=== PATIENT | male | born 1970 | race Caucasian/White ===

== ENCOUNTER 2018-08-08 13:28 | Inpatient (IN) | payer MEDICAID, OTHER ==
[2018-08-08] MEDS ORDERED: THIAMINE HCL 200 MG/2 ML VIAL (J3411) IM ONE (13:45)
[2018-08-08] MEDS ORDERED: NS 1,000 ML IV ONE ×3 (13:45→17:30)
[2018-08-08] MEDS ORDERED: FLUO40CA PO (13:54)
[2018-08-08] MEDS ORDERED: TRAZ-160 PO (13:54)
--- NOTE | 2018-08-08 13:59 | REP ---
Chest one-view HISTORY: Drug overdose Comparison: None The lungs are clear. The heart is normal in size. The pulmonary vasculature is normal in appearance. Impression: No acute disease. Electronically Signed by Haile Cerrato MD 08/08/2018 01:52 P
[2018-08-08 14:15] LABS: VENOUS BASE EXCESS -1.6 (-2.0-2.0); VENOUS HCO3 22.1 MEQ/L (23.0-27.0); VENOUS O2 SATURATION 99.1 % (60.0-80.0); VENOUS PARTIAL PRESSURE CO2 34.5 mmHg (38.0-50.0); VENOUS PARTIAL PRESSURE O2 152.6 mmHg (30.0-50.0); VENOUS PH 7.424 UNITS (7.330-7.430); VENOUS STANDARD HCO3 23.2 MEQ/L; VENOUS TOTAL CO2 23.1 MEQ/L (24.0-28.0)
[2018-08-08 14:26] LABS: BASO % 0.1 % (0.0-1.0); EOS % 0.1 % (0.0-3.0); HEMATOCRIT 39.1 % (42.0-52.0); HEMOGLOBIN 14.2 g/dl (13.5-17.5); LYMPH # 0.6 10^3/uL (1.5-4.5); LYMPH % 3.4 % (24.0-44.0); MEAN CORPUSCULAR HEMOGLOBIN 31.6 pg (27.0-33.0); MEAN CORPUSCULAR HGB CONC 36.3 g/dl (32.0-36.5); MEAN CORPUSCULAR VOLUME 86.9 fl (80.0-96.0); MONO # 0.6 10^3/uL (0.0-0.8); MONO % 3.4 % (0.0-5.0); NEUTROPHILS % 92.6 % (36.0-66.0); PLATELET COUNT, AUTOMATED 166 10^3/uL (150-450); WHITE BLOOD COUNT 17.2 10^3/uL (4.0-10.0)
--- NOTE | 2018-08-08 14:41 | REP ---
CT Head without contrast HISTORY: Drug overdose COMPARISON: None There is no intraparenchymal hemorrhage, acute infarct, mass or midline shift. The ventricular system and cortical sulci as well as subarachnoid space in the posterior fossa are dilated consistent with mild volume loss. There is no extra cerebral collection. There is no fracture. The visualized sinuses are clear. IMPRESSION: Mild volume loss. Electronically Signed by Haile Cerrato MD 08/08/2018 02:33 P
[2018-08-08 15:13] LABS: ACETAMINOPHEN LEVEL < 2.0 UG/ML (10.0-30.0); ALBUMIN 3.7 GM/DL (3.2-5.2); ALT/SGPT 141 U/L (12-78); BILIRUBIN,DIRECT 0.1 MG/DL (0.0-0.2); BILIRUBIN,TOTAL 0.9 MG/DL (0.2-1.0); BLOOD UREA NITROGEN 18 MG/DL (7-18); CALCIUM LEVEL 7.8 MG/DL (8.5-10.1); CARBON DIOXIDE LEVEL 21 MEQ/L (21-32); CHLORIDE LEVEL 89 MEQ/L (98-107); CREATININE FOR GFR 0.57 MG/DL (0.70-1.30); GLOMERULAR FILTRATION RATE > 60.0 (>60); GLUCOSE, FASTING 119 MG/DL (70-100); POTASSIUM SERUM 5.8 MEQ/L (3.5-5.1); SALICYLATE LEVEL < 1.7 MG/DL (5.0-30.0); SODIUM LEVEL 127 MEQ/L (136-145); THYROID STIMULATING HORMONE 0.313 uIU/ML (0.358-3.740); TOTAL PROTEIN 6.6 GM/DL (6.4-8.2)
[2018-08-08 15:41] LABS: CPK CREATINE PHOSPHOKINASE 3310 U/L (39-308)
[2018-08-08] MEDS: NS 1,000 ML IV SCH (20:29)
[2018-08-08 20:39] LABS: MYOGLOBIN 638 NG/ML (16-116)
[2018-08-08] MEDS: LORazepam 2 MG TAB PO PRN ×3 (20:45→23:35)
--- NOTE | 2018-08-08 20:58 | HPEPDOC ---
[facility] Medical History & Physical Date of Admission Aug 08, 2018 Other Provider Admitting/dictating: Lilian Hopkins M.D. Attending Physician: UDAY CAPELLAN MD History and Physical CHIEF COMPLAINT: Altered mental status HISTORY OF PRESENT ILLNESS: Patient is a 47-year-old man. No known medical h istory other than being brought in by EMS on account of being found at home in bed, in feces and vomit with multiple bottles of vodka. EMS was activated by his estranged was concerned as she hadn't heard from him for about 3 days. It is reported she says they talked every day. Patient was found with altered sensorium and brought to the emergency room. He was evaluated with elevated serum alcohol as well as elevated creatinine kinase. At the time. Patient not reliable historian. However, at interview, I did notice some improvement in his mental status. Patient denied nausea, vomiting. Other than hicupping for the past 2-3 days. He also refers having had very little to eat for the past 2 days. No fever, no chills. No palpitations, no cough, no shortness of breath. He says since onset of hiccuping, he occasionally feels epigastric pains. No change in his bowel or urinary habits. PAST MEDICAL HISTORY: Per HPI PAST SURGICAL HISTORY: 1. Right wrist surgery. SOCIAL HISTORY: from his . Takes a lot of what Several bottles at the time. FAMILY HISTORY: No significant ischemic heart disease in the family ALLERGIES: Please see below. REVIEW OF SYSTEMS: 12 point review of system negative other than that described in the body of HPI. HOME MEDICATIONS: Please see below. PHYSICAL EXAMINATION: VITAL SIGNS: Temperature 98, pulse 90, respiratory rate 17, blood pressure 120/56, pulse oximetry 95% on room air. GENERAL APPEARANCE: Middle aged man, hiccuping and with slight tremors. He is not pale, anicteric and afebrile HEENT: Atraumatic. Neck: Supple. LUNGS: Clear to auscultation bilaterally. CARDIOVASCULAR: S1 and 2 heard, no murmurs, rubs or gallops. ABDOMEN: Soft, slight epigastric tenderness with deep palpation, not distended. Bowel sounds hypoactive. MUSCULOSKELETAL: Apparently within normal limits. Positive for slight tremors EXTREMITIES: Slight tremors of extremities noted. No pedal edema, 2+ bilateral pedal pulses noted. NEUROLOGICAL: Awake, alert, oriented 3. PSYCHIATRIC: Normal affect LABORATORY DATA: See below. IMAGING: Chest x-ray: No acute disease. CT brain without contrast: Mild volume loss, no acute disease. MICROBIOLOGY: Please see below. ASSESSMENT: 47-year-old man comes in with alcohol intoxication no known medical history. Patient not reliable with history. Exam reveals patient slightly tremulous with elevated serum alcohol and serum CK. Imaging negative. DIAGNOSES: 1. Altered mental status/Alcohol intoxication. 2. Rhabdomyolysis. 3. Metabolic derangement: Hyperkalemia, hyponatremia 4. Leukocytosis unspecified. . PLAN: 1. I will admit patient to the PCU under care of Dr. Butler. 2. Altered mental status/Alcohol intoxication: I will initiate see what protocol while patient gets folic acid, thiamine and IV fluid normal saline to run at 125 mils per hour. We'll send for urine tox screen. 3. Rhabdomyolysis. Patient getting normal saline. IV fluid. This should help follow BMP in the morning. Repeat CK in the morning. 4. Hyperkalemia/hyponatremia, likely from beer potomania seen with alcohol abuse. They should improve with volume expansion with normal saline. Sodium is unexpected to improve his salt and also to help with sodium, potassium exchange at the distal tubal via ENAC channels. We'll repeat BMP in 3 hours. 5. Leukocytosis unspecified: Patient not showing any signs of systemic infections, will hold off antibiotics use at this time. However, I will order blood cultures, urinalysis with reflex to culture this can be followed in the morning with repeat CBC. Follow temperature trends. 6. GI prophylaxis. Pantoprazole. 7. DVT prophylaxis, TEDs. 8. Dating May consider mental health consult as soon as patient is medically cleared. 9. Further management will be per patient's clinical course. Vital Signs Vital Signs Date Time Temp Pulse Resp B/P (MAP) Pulse Ox O2 Delivery O2 Flow Rate FiO2 08/08/18 19:31 90 08/08/18 19:30 122/71 (88) 08/08/18 19:16 97 08/08/18 14:37 Nasal Cannula 2.0 08/08/18 13:30 98.5 20 Laboratory Data Labs 24H Laboratory Tests 2 08/08/18 13:55: Immature Granulocyte % (Auto) 0.4, White Blood Count 17.2H, Red Blood Count 4.50, Hemoglobin 14.2, Hematocrit 39.1L, Mean Corpuscular Volume 86.9, Mean Corpuscular Hemoglobin 31.6, Mean Corpuscular Hemoglobin Concent 36.3, Red Cell Distribution Width 12.4, Platelet Count 166, Neutrophils (%) (Auto) 92.6H, Lymphocytes (%) (Auto) 3.4L, Monocytes (%) (Auto) 3.4, Eosinophils (%) (Auto) 0. 1, Basophils (%) (Auto) 0.1, Neutrophils # (Auto) 16.0H, Lymphocytes # (Auto) 0.6L, Monocytes # (Auto) 0.6, Eosinophils # (Auto) 0.0, Basophils # (Auto) 0.0, Nucleated Red Blood Cells % (auto) 0.0, Blood Gas Bicarbonate Standard 23.2, Venous Blood pH 7.424, Venous Blood Partial Pressure CO2 34.5L, Venous Blood Partial Pressure O2 152.6H, Venous Blood Total Carbon Dioxide 23.1L, Venous Blood HCO3 22.1L, Venous Blood Oxygen Saturation 99.1H, Venous Blood Base Excess -1.6, Anion Gap 17H, Glomerular Filtration Rate > 60.0, Calcium Level 7.8L, Aspartate Amino Transf (AST/SGOT) 283H, Alanine Aminotransferase (ALT/SGPT) 141H, Alkaline Phosphatase 49, Total Bilirubin 0.9, Direct Bilirubin 0.1, Total Creatine Kinase 3310H, Total Protein 6.6, Albumin 3.7, Albumin/Globulin Ratio 1.28, Thyroid Stimulating Hormone (TSH) 0.313L, Salicylates Level < 1.7L, Acetaminophen Level < 2.0L, Ethyl Alcohol Level 0.460H CBC/BMP Laboratory Tests 08/08/18 13:55 Red Blood Count 4.50, Mean Corpuscular Volume 86.9, Mean Corpuscular Hemoglobin 31.6, Mean Corpuscular Hemoglobin Concent 36.3, Red Cell Distribution Width 12.4, Neutrophils (%) (Auto) 92.6 H, Lymphocytes (%) (Auto) 3.4 L, Monocytes (%) (Auto) 3.4, Eosinophils (%) (Auto) 0.1, Basophils (%) (Auto) 0.1, Neutrophils # (Auto) 16.0 H, Lymphocytes # (Auto) 0.6 L, Monocytes # (Auto) 0.6, Eosinophils # (Auto) 0.0, Basophils # (Auto) 0.0 Home Medications No Active Prescriptions or Reported Meds Allergies Coded Allergies: No Known Drug Allergy (Unverified Allergy, Unknown, 08/08/18) LILIAN HOPKINS MD Aug 08, 2018 20:13
[2018-08-08 21:12] LABS: AMPHETAMINES LEVEL URINE NEGATIVE (NEGATIVE); BARBITURATES URINE NEGATIVE (NEGATIVE); BENZODIAZEPINES URINE NEGATIVE (NEGATIVE); CANNABINOIDS URINE NEGATIVE (NEGATIVE); COCAINE METABOLITE URINE NEGATIVE (NEGATIVE); METHADONE URINE NEGATIVE (NEGATIVE); OPIATES URINE NEGATIVE (NEGATIVE); PHENCYCLIDINE URINE NEGATIVE (NEGATIVE)
[2018-08-08 21:51] VITALS: BP 136/67
[2018-08-08 22:00] VITALS: BP 136/67
[2018-08-08 22:02] LABS: AMPHETAMINES LEVEL URINE NEGATIVE (NEGATIVE); BARBITURATES URINE NEGATIVE (NEGATIVE); BENZODIAZEPINES URINE NEGATIVE (NEGATIVE); CANNABINOIDS URINE NEGATIVE (NEGATIVE); COCAINE METABOLITE URINE NEGATIVE (NEGATIVE); METHADONE URINE NEGATIVE (NEGATIVE); OPIATES URINE NEGATIVE (NEGATIVE); PHENCYCLIDINE URINE NEGATIVE (NEGATIVE)
[2018-08-08] MEDS: THIAMINE 100 MG TAB PO SCH (22:04)
[2018-08-08] MEDS: ACETAMINOPHEN TAB 650MG DOSE (2X325MG) PO PRN (22:04)
[2018-08-08] MEDS: ONDANSETRON 4MG/2ML VIAL (J2405) IV PRN (22:04)
[2018-08-08 22:32] VITALS: BP 136/67
[2018-08-08] MEDS ORDERED: LACTULOSE 20 GM/30 ML SYRUP UD PO ONE (23:30)
[2018-08-08] MEDS ORDERED: CALCIUM GLUCONATE 1,000 MG in D5W MINI-BAG PLUS 100 ML IV ONE (23:30)
[2018-08-09] VITALS (9 sets, daily range): BP systolic 110–117; BP diastolic 58–73
[2018-08-09] MEDS: LORazepam 2 MG TAB PO PRN (02:02)
[2018-08-09] MEDS: NS 1,000 ML IV SCH ×3 (03:30→11:20)
[2018-08-09 05:43] LABS: BASO % 0.2 % (0.0-1.0); HEMATOCRIT 32.6 % (42.0-52.0); LYMPH # 0.8 10^3/uL (1.5-4.5); LYMPH % 8.2 % (24.0-44.0); MEAN CORPUSCULAR HEMOGLOBIN 31.7 pg (27.0-33.0); MEAN CORPUSCULAR HGB CONC 35.3 g/dl (32.0-36.5); MEAN CORPUSCULAR VOLUME 89.8 fl (80.0-96.0); MONO # 0.3 10^3/uL (0.0-0.8); NEUTROPHILS # 9.1 10^3/uL (1.8-7.7); NEUTROPHILS % 87.9 % (36.0-66.0); RED BLOOD COUNT 3.63 10^6/uL (4.30-6.10); WHITE BLOOD COUNT 10.3 10^3/uL (4.0-10.0)
[2018-08-09 06:03] LABS: BLOOD UREA NITROGEN 10 MG/DL (7-18); CALCIUM LEVEL 7.3 MG/DL (8.5-10.1); CARBON DIOXIDE LEVEL 26 MEQ/L (21-32); CHLORIDE LEVEL 100 MEQ/L (98-107); CREATININE FOR GFR 0.51 MG/DL (0.70-1.30); GLOMERULAR FILTRATION RATE > 60.0 (>60); GLUCOSE, FASTING 74 MG/DL (70-100); POTASSIUM SERUM 3.3 MEQ/L (3.5-5.1); SODIUM LEVEL 138 MEQ/L (136-145)
[2018-08-09 06:25] LABS: HEMOGLOBIN 11.5 g/dl (13.5-17.5); PLATELET COUNT, AUTOMATED 97 10^3/uL (150-450)
[2018-08-09] MEDS ORDERED: POTASSIUM CHLORIDE 10 MEQ SR TABLET PO ONE (06:45)
[2018-08-09] MEDS ORDERED: OXAZEPAM 10 MG CAP PO ONE (06:45)
[2018-08-09] MEDS: LORazepam 2 MG/ML VIAL (J2060) IV PRN ×3 (06:56→19:06)
--- NOTE | 2018-08-09 09:01 | IPNPDOC ---
Date Seen The patient was seen on 08/09/18. Progress Note SUBJECTIVE: Pt seen and examined at the bedside, chart has been reviewed. Pt smells of alcohol, appears disheveled, and restless at the bedside, but cooperative. He c/o tremors and restlessness, feelings of anxiety. no c/o parethesias, no hallucinations, abd pain, nausea, vomiting. c/o persistent hiccups. no hematemesis or brbpr, melena, or black tarry stools. OBJECTIVE: PHYSICAL EXAMINATION: VITAL SIGNS: PLS SEE BELOW GENERAL APPEARANCE: Middle aged man, hiccuping and with slight tremors. He is not pale, anicteric and afebrile HEENT: Atraumatic. Neck: Supple. LUNGS: Clear to auscultation bilaterally. CARDIOVASCULAR: S1 and 2 heard, no murmurs, rubs or gallops. ABDOMEN: Soft, slight epigastric tenderness with deep palpation, not distended. Bowel sounds hypoactive. MUSCULOSKELETAL: Apparently within normal limits. Positive for slight tremors EXTREMITIES: Slight tremors of extremities noted. No pedal edema, 2+ bilateral pedal pulses noted. NEUROLOGICAL: Awake, alert, oriented 3. PSYCHIATRIC: Normal affect LABORATORY DATA: See below. IMAGING: Chest one-view HISTORY: Drug overdose Comparison: None The lungs are clear. The heart is normal in size. The pulmonary vasculature is normal in appearance. Impression: No acute disease. Electronically Signed by Haile Cerrato MD 08/08/2018 01:52 P DD: Haile Cerrato MD 08/08/18 1351 1352 DS: TERESA 08/08/18 1352 08/08/[address] Head without contrast HISTORY: Drug overdose COMPARISON: None There is no intraparenchymal hemorrhage, acute infarct, mass or midline shift. The ventricular system and cortical sulci as well as subarachnoid space in the posterior fossa are dilated consistent with mild volume loss. There is no extra cerebral collection. There is no fracture. The visualized sinuses are clear. IMPRESSION: Mild volume loss. Electronically Signed by Haile Cerrato MD 08/08/2018 02:33 P MICROBIOLOGY: Please see below. ASSESSMENT AND PLAN: Patient is a 47-year-old man. No known medical history other than being brought in by EMS on account of being found at home in bed, in feces and vomit with multiple bottles of vodka. EMS was activated by his natasha grayd was concerned as she hadn't heard from him for about 3 days. It is reported she says they talked every day. Patient was found with altered sensorium and brought to the emergency room. He was evaluated with elevated serum alcohol as well as elevated creatinine kinase. At the time. Patient not reliable historian. However, at interview, I did notice some improvement in his mental status. Patient denied nausea, vomiting. Other than hicupping for the past 2-3 days. He also refers having had very little to eat for the past 2 days. No fever, no chills. No palpitations, no cough, no shortness of breath. He says since onset of hiccuping, he occasionally feels epigastric pains. No change in h is bowel or urinary habits. Altered mental status/Alcohol intoxication. monitor for withdrawal. CIWA protocol. serax q6hrs, and prn ativan iv. no signs of aspiration. may continue po regular diet. PT HSE in the next 24-48hrs. check ammonia levels. MVI, thiamine, folate. Urine toxicology screen. Rhabdomyolysis. ivfluids and encourage oral fluid intake. no renal dysfunction. avoid nephrotoxins. Hyperkalemia, on admission resolved with kayexalate. s/p calcium gluconate hyponatremia most likely from beer potomania. monitor mp serially Leukocytosis unspecified most likely reactive. no clear infectious etiology. no empiric antibiotics. DVT prophylaxis: code: full disposition: stable for medsurg transfer. VS, I&O, 24H, Fishbone Vital Signs/I&O Vital Signs Date Time Temp Pulse Resp B/P (MAP) Pulse Ox O2 Delivery O2 Flow Rate FiO2 08/09/18 06:00 74 117/59 08/09/18 04:00 99.6 20 96 Nasal Cannula 2.0 I&O- Last 24 Hours up to 6 AM 08/09/18 06:00 Intake Total 3360 ml Output Total 400 ml Balance 2960 ml Laboratory Data 24H LABS Laboratory Tests 2 08/08/18 13:55: Immature Granulocyte % (Auto) 0.4, White Blood Count 17.2H, Red Blood Count 4.50, Hemoglobin 14.2, Hematocrit 39.1L, Mean Corpuscular Volume 86.9, Mean Co rpuscular Hemoglobin 31.6, Mean Corpuscular Hemoglobin Concent 36.3, Red Cell Distribution Width 12.4, Platelet Count 166, Neutrophils (%) (Auto) 92.6H, Lymphocytes (%) (Auto) 3.4L, Monocytes (%) (Auto) 3.4, Eosinophils (%) (Auto) 0.1, Basophils (%) (Auto) 0.1, Neutrophils # (Auto) 16.0H, Lymphocytes # (Auto) 0.6L, Monocytes # (Auto) 0.6, Eosinophils # (Auto) 0.0, Basophils # (Auto) 0.0, Nucleated Red Blood Cells % (auto) 0.0, Blood Gas Bicarbonate Standard 23.2, Venous Blood pH 7.424, Venous Blood Partial Pressure CO2 34.5L, Venous Blood Partial Pressure O2 152.6H, Venous Blood Total Carbon Dioxide 23.1L, Venous Blood HCO3 22.1L, Venous Blood Oxygen Saturation 99.1H, Venous Blood Base Excess -1.6, Anion Gap 17H, Glomerular Filtration Rate > 60.0, Calcium Level 7.8L, Aspartate Amino Transf (AST/SGOT) 283H, Alanine Aminotransferase (ALT/SGPT) 141H, Alkaline Phosphatase 49, Total Bilirubin 0.9, Direct Bilirubin 0.1, Total Creatine Kinase 3310H, Myoglobin 638H, Total Protein 6.6, Albumin 3.7, Albumin/Globulin Ratio 1.28, Thyroid Stimulating Hormone (TSH) 0.313L, Salicylates Level < 1.7L, Acetaminophen Level < 2.0L, Ethyl Alcohol Level 0.460H 08/08/18 20:42: Urine Color YELLOW, Urine Appearance CLEAR, Urine pH 6.0, Urine Specific [place] 1.009, Urine Protein NEGATIVE, Urine Glucose (UA) NEGATIVE, Urine Ketones 1+H, Urine Blood 2+H, Urine Nitrite NEGATIVE, Urine Bilirubin NEGATIVE, Urine Urobilinogen 0.2, Urine Leukocyte Esterase NEGATIVE, Urine WBC (Auto) 3, Urine RBC (Auto) 0, Urine Hyaline Casts (Auto) 0, Urine Bacteria (Auto) NEGATIVE, Urine Squamous Epithelial Cells 0, Urine Sperm (Auto) , Urine Myoglobin POSITIVE, Urine Amphetamines Screen NEGATIVE, Urine Benzodiazepines Screen NEGATIVE, Urine Opiates Screen NEGATIVE, Urine Methadone Screen NEGATIVE, Urine Barbiturates Screen NEGATIVE, Urine Phencyclidine Screen NEGATIVE, Urine Cocaine Metabolite Screen NEGATIVE, Urine Cannabinoids Screen NEGATIVE 08/09/18 05:01: Immature Granulocyte % (Auto) 0.7, White Blood Count 10.3H, Red Blood Count 3.63L, Hemoglobin 11.5#L, Hematocrit 32.6L, Mean Corpuscular Volume 89.8, Mean Corpuscular Hemoglobin 31.7, Mean Corpuscular Hemoglobin Concent 35.3, Red Cell Distribution Width 12.6, Platelet Count 97L, Neutrophils (%) (Auto) 87.9H, Lymphocytes (%) (Auto) 8.2L, Monocytes (%) (Auto) 3.0, Eosinophils (%) (Auto) 0.0, Basophils (%) (Auto) 0.2, Neutrophils # (Auto) 9.1H, Lymphocytes # (Auto) 0.8L, Monocytes # (Auto) 0.3, Eosinophils # (Auto) 0.0, Basophils # (Auto) 0.0, Nucleated Red Blood Cells % (auto) 0.0, Anion Gap 12, Glomerular Filtration Rate > 60.0, Calcium Level 7.3L, Total Creatine Kinase 2835H, Immature Platelet Fraction 4.6, Blood Urea Nitrogen 10, Creatinine 0.51L, Sodium Level 138#, Potassium Level 3.3#L, Chloride Level 100, Carbon Dioxide Level 26 CBC/BMP Laboratory Tests 08/08/18 13:55 Red Blood Count 4.50, Mean Corpuscular Volume 86.9, Mean Corpuscular Hemoglobin 31.6, Mean Corpuscular Hemoglobin Concent 36.3, Red Cell Distribution Width 12.4, Neutrophils (%) (Auto) 92.6 H, Lymphocytes (%) (Auto) 3.4 L, Monocytes (%) (Auto) 3.4, Eosinophils (%) (Auto) 0.1, Basophils (%) (Auto) 0.1, Neutrophils # (Auto) 16.0 H, Lymphocytes # (Auto) 0.6 L, Monocytes # (Auto) 0.6, Eosinophils # (Auto) 0.0, Basophils # (Auto) 0.0 08/09/18 05:01 Red Blood Count 3.63 L, Mean Corpuscular Volume 89.8, Mean Corpuscular Hemoglobin 31.7, Mean Corpuscular Hemoglobin Concent 35.3, Red Cell Distribution Width 12.6, Neutrophils (%) (Auto) 87.9 H, Lymphocytes (%) (Auto) 8.2 L, Monocyt es (%) (Auto) 3.0, Eosinophils (%) (Auto) 0.0, Basophils (%) (Auto) 0.2, Neutrophils # (Auto) 9.1 H, Lymphocytes # (Auto) 0.8 L, Monocytes # (Auto) 0.3, Eosinophils # (Auto) 0.0, Basophils # (Auto) 0.0, Calcium Level 7.3 L Microbiology Microbiology 08/09/18 Blood Culture, Received Pending UDAY CAPELLAN MD Aug 09, 2018 08:57
[2018-08-09] MEDS: MULTIVITAMINS/MINERALS THERAP 1 TAB PO SCH (11:20)
[2018-08-09] MEDS: FOLIC ACID 1 MG TAB PO SCH (11:20)
[2018-08-09] MEDS: PANTOPRAZOLE 40MG TAB (PROTONIX) PO SCH (11:20)
[2018-08-09] MEDS: THIAMINE 100 MG TAB PO SCH ×2 (11:20→21:26)
[2018-08-09] MEDS: OXAZEPAM 10 MG CAP PO SCH ×2 (11:20→17:24)
[2018-08-09] MEDS: ACETAMINOPHEN TAB 650MG DOSE (2X325MG) PO PRN ×2 (11:39→21:27)
[2018-08-09] MEDS: ONDANSETRON 4MG/2ML VIAL (J2405) IV PRN ×2 (11:47→21:26)
[2018-08-10] MEDS: OXAZEPAM 10 MG CAP PO SCH ×2 (01:51→05:41)
[2018-08-10] MEDS: LORazepam 2 MG/ML VIAL (J2060) IV PRN ×5 (01:52→23:54)
[2018-08-10 06:00] VITALS: BP 118/64
[2018-08-10] MEDS: ONDANSETRON 4MG/2ML VIAL (J2405) IV PRN (06:37)
[2018-08-10] MEDS: MULTIVITAMINS/MINERALS THERAP 1 TAB PO SCH (08:47)
[2018-08-10] MEDS: FOLIC ACID 1 MG TAB PO SCH (08:47)
[2018-08-10] MEDS: THIAMINE 100 MG TAB PO SCH (08:47)
[2018-08-10] MEDS: PANTOPRAZOLE 40MG TAB (PROTONIX) PO SCH (08:47)
[2018-08-10 09:40] VITALS: BP 109/63
[2018-08-10 10:30] VITALS: BP 113/60
[2018-08-10] MEDS ORDERED: LORazepam 2 MG/ML VIAL (J2060) IV STA (10:38)
[2018-08-10] MEDS ORDERED: PILL CRUSHER/CUTTER 1 EACH XX PRN (10:45)
[2018-08-10] MEDS: SIMETHICONE 80 MG CHEW TAB PO SCH ×4 (10:51→22:20)
[2018-08-10 10:53] LABS: BASO % 0.2 % (0.0-1.0); EOS # 0.1 10^3/uL (0.0-0.50); EOS % 0.8 % (0.0-3.0); HEMATOCRIT 31.4 % (42.0-52.0); HEMOGLOBIN 11.1 g/dl (13.5-17.5); LYMPH # 0.9 10^3/uL (1.5-4.5); MEAN CORPUSCULAR HEMOGLOBIN 31.9 pg (27.0-33.0); MEAN CORPUSCULAR HGB CONC 35.4 g/dl (32.0-36.5); MEAN CORPUSCULAR VOLUME 90.2 fl (80.0-96.0); MONO # 0.4 10^3/uL (0.0-0.8); MONO % 4.6 % (0.0-5.0); NEUTROPHILS # 7.4 10^3/uL (1.8-7.7); NEUTROPHILS % 83.7 % (36.0-66.0); RED BLOOD COUNT 3.48 10^6/uL (4.30-6.10); WHITE BLOOD COUNT 8.8 10^3/uL (4.0-10.0)
[2018-08-10 10:55] LABS: PLATELET COUNT, AUTOMATED 80 10^3/uL (150-450)
[2018-08-10 11:30] LABS: BLOOD UREA NITROGEN 9 MG/DL (7-18); CALCIUM LEVEL 7.8 MG/DL (8.5-10.1); CARBON DIOXIDE LEVEL 29 MEQ/L (21-32); CHLORIDE LEVEL 97 MEQ/L (98-107); CPK CREATINE PHOSPHOKINASE 1274 U/L (39-308); GLOMERULAR FILTRATION RATE > 60.0 (>60); GLUCOSE, FASTING 114 MG/DL (70-100); POTASSIUM SERUM 3.4 MEQ/L (3.5-5.1); SODIUM LEVEL 135 MEQ/L (136-145)
[2018-08-10] MEDS: OXAZEPAM 15 MG CAP PO SCH ×3 (11:52→23:54)
[2018-08-10] MEDS ORDERED: MULTIVITAMIN -ADULT INJECTION 10 ML, THIAMINE INJection 100 MG, FOLIC ACID 1 MG in NS 1... IV ONE (12:00)
[2018-08-10 15:00] VITALS: BP 113/67
[2018-08-10 20:39] VITALS: BP 113/67
[2018-08-10 22:00] VITALS: BP 114/68
[2018-08-11] MEDS: LORazepam 2 MG/ML VIAL (J2060) IV PRN ×3 (05:53→14:03)
[2018-08-11] MEDS: OXAZEPAM 15 MG CAP PO SCH ×4 (05:53→23:40)
[2018-08-11 06:00] VITALS: BP 134/82
[2018-08-11 08:00] VITALS: BP 134/82
[2018-08-11] MEDS ORDERED: POTASSIUM CHLORIDE 10 MEQ SR TABLET PO ONE (08:15)
[2018-08-11] MEDS: PANTOPRAZOLE 40MG TAB (PROTONIX) PO SCH (09:22)
[2018-08-11] MEDS: SIMETHICONE 80 MG CHEW TAB PO SCH ×4 (09:22→21:52)
[2018-08-11 14:00] VITALS: BP 123/87
[2018-08-11 18:00] VITALS: BP 123/87
--- NOTE | 2018-08-11 19:15 | IPNPDOC ---
Date Seen The patient was seen on 08/11/18. Progress Note UBJECTIVE: Pt seen and examined at the bedside, chart has been reviewed. pt has been on serax with decreased tremors and restlessness, feelings of anxiety. no c/o parethesias, no hallucinations, abd pain, nausea, vomiting. hiccups have improved on simethicone.. no hematemesis or brbpr, melena, or black tarry stools. He inquired about "mental rehab," but meant alcohol rehab programs. pfs consulted OBJECTIVE: PHYSICAL EXAMINATION: VITAL SIGNS: PLS SEE BELOW GENERAL APPEARANCE: Middle aged man, slight tremors. He is not pale, anicteric and afebrile HEENT: Atraumatic. Neck: Supple. LUNGS: Clear to auscultation bilaterally. CARDIOVASCULAR: S1 and 2 heard, no murmurs, rubs or gallops. ABDOMEN: Soft, slight epigastric tenderness with deep palpation, not distended. Bowel sounds hypoactive. MUSCULOSKELETAL: Apparently within normal limits. Positive for slight tremors EXTREMITIES: Slight tremors of extremities noted. No pedal edema, 2+ bilateral pedal pulses noted. NEUROLOGICAL: Awake, alert, oriented 3. PSYCHIATRIC: Normal affect LABORATORY DATA: See below. IMAGING: Chest one-view HISTORY: Drug overdose Comparison: None The lungs are clear. The heart is normal in size. The pulmonary vasculature is normal in appearance. Impression: No acute disease. Electronically Signed by Haile Cerrato MD 08/08/2018 01:52 P DD: Haile Cerrato MD 08/08/18 1351 DT: Robson 08/08/18 1352 DS: TERESA 08/08/18 1352 08/08/[address] Head without contrast HISTORY: Drug overdose COMPARISON: None There is no intraparenchymal hemorrhage, acute infarct, mass or midline shift. The ventricular system and cortical sulci as well as subarachnoid space in the posterior fossa are dilated consistent with mild volume loss. There is no extra cerebral collection. There is no fracture. The visualized sinuses are clear. IMPRESSION: Mild volume loss. Electronically Signed by Haile Cerrato MD 08/08/2018 02:33 P MICROBIOLOGY: Please see below. ASSESSMENT AND PLAN: Patient is a 47-year-old man. No known medical history other than being brought in by EMS on account of being found at home in bed, in feces and vomit with multiple bottles of vodka. EMS was activated by his estranged was concerned as she hadn't heard from him for about 3 days. It is reported she says they talked every day. Patient was found with altered sensorium and brought to the emergency room. He was evaluated with elevated serum alcohol as well as elevated creatinine kinase. At the time. Patient not reliable historian. However, at interview, I did notice some improvement in his mental status. Patient denied nausea, vomiting. Other than hicupping for the past 2-3 days. He also refers having had very little to eat for the past 2 days. No fever, no chills. No palpitations, no cough, no shortness of breath. He says since onset of hiccuping, he occasionally feels epigastric pains. No change in his bowel or urinary habits. Altered mental status/Alcohol intoxication. on CIWA protocol. serax q6hrs, and prn ativan iv. no signs of aspiration. may continue po regular diet. PT HSE in the next 24-48hrs. checked ammonia levels. MVI, thiamine, folate. Urine toxicology screen. Rhabdomyolysis. ivfluids and encourage oral fluid intake. no renal dysfunction. avoid nephrotoxins. Hyperkalemia, on admission resolved with kayexalate. s/p calcium gluconate hyponatremia most likely from beer potomania. monitor mp serially Leukocytosis unspecified most likely reactive. no clear infectious etiology. no empiric antibiotics. DVT prophylaxis: code: full disposition: dc sunday VS, I&O, 24H, Fishbone Vital Signs/I&O Vital Signs Date Time Temp Pulse Resp B/P (MAP) Pulse Ox O2 Delivery O2 Flow Rate FiO2 08/11/18 14:00 98.1 84 16 123/87 (99) 97 Room Air 08/09/18 23:45 2.0 I&O- Last 24 Hours up to 6 AM 08/11/18 06:00 Intake Total 2640 ml Output Total 900 ml Balance 1740 ml Laboratory Data Microbiology Microbiology 08/09/18 Blood Culture - Preliminary, Resulted No Growth after 48 hours. All Specime... UDAY CAPELLAN MD Aug 11, 2018 19:15
--- NOTE | 2018-08-11 19:21 | IPNPDOC ---
Date Seen The patient was seen on 08/10/18. Progress Note SUBJECTIVE: Pt seen and examined at the bedside, chart has been reviewed. Improved no seizure like activity. He c/o tremors and restlessness, feelings of anxiety. no c/o parethesias, no hallucinations, abd pain, nausea, vomiting. c/o persistent hiccups. no hematemesis or brbpr, melena, or black tarry stools. OBJECTIVE: PHYSICAL EXAMINATION: VITAL SIGNS: PLS SEE BELOW GENERAL APPEARANCE: Middle aged man, hiccuping and with slight tremors. He is not pale, anicteric and afebrile HEENT: Atraumatic. Neck: Supple. LUNGS: Clear to auscultation bilaterally. CARDIOVASCULAR: S1 and 2 heard, no murmurs, rubs or gallops. ABDOMEN: Soft, slight epigastric tenderness with deep palpation, not distended. Bowel sounds hypoactive. MUSCULOSKELETAL: Apparently within normal limits. Positive for slight tremors EXTREMITIES: Slight tremors of extremities noted. No pedal edema, 2+ bilateral pedal pulses noted. NEUROLOGICAL: Awake, alert, oriented 3. PSYCHIATRIC: Normal affect LABORATORY DATA: See below. IMAGING: Chest one-view HISTORY: Drug overdose Comparison: None The lungs are clear. The heart is normal in size. The pulmonary vasculature is normal in appearance. Impression: No acute disease. Electronically Signed by Haile Cerrato MD 08/08/2018 01:52 P DD: Haile Cerrato MD 08/08/18 1351 1352 DS: TERESA 08/08/18 1352 08/08/[address] Head without contrast HISTORY: Drug overdose COMPARISON: None There is no intraparenchymal hemorrhage, acute infarct, mass or midline shift. The ventricular system and cortical sulci as well as subarachnoid space in the posterior fossa are dilated consistent with mild volume loss. There is no extra cerebral collection. There is no fracture. The visualized sinuses are clear. IMPRESSION: Mild volume loss. Electronically Signed by Haile Cerrato MD 08/08/2018 02:33 P MICROBIOLOGY: Please see below. ASSESSMENT AND PLAN: Patient is a 47-year-old man. No known medical history other than being brought in by EMS on account of being found at home in bed, in feces and vomit with multiple bottles of vodka. EMS was activated by his estranged was concerned as she hadn't heard from him for about 3 days. It is reported she says they talked every day. Patient was found with altered sensorium and brought to the emergency room. He was evaluated with elevated serum alcohol as well as elevated creatinine kinase. At the time. Patient not reliable historian. However, at interview, I did notice some improvement in his mental status. Patient denied nausea, vomiting. Other than hicupping for the past 2-3 days. He also refers having had very little to eat for the past 2 days. No fever, no chills. No palpitations, no cough, no shortness of breath. He says since onset of hiccuping, he occasionally feels epigastric pains. No change in his bowel or urinary habits. Altered mental status/Alcohol intoxication. monitor for withdrawal. CIWA protocol. serax q6hrs, and prn ativan iv. no signs of aspiration. may continue po regular diet. PT HSE in the next 24-48hrs. check ammonia levels. MVI, thiamine, folate. Urine toxicology screen. Rhabdomyolysis. ivfluids and encourage oral fluid intake. no renal dysfunction. avoid nephrotoxins. Hyperkalemia, on admission resolved with kayexalate. s/p calcium gluconate hyponatremia most likely from beer potomania. monitor mp serially Leukocytosis unspecified most likely reactive. no clear infectious etiology. no empiric antibiotics. DVT prophylaxis: code: full disposition: stable for medsurg transfer. VS, I&O, 24H, Fishbone Vital Signs/I&O Vital Signs Date Time Temp Pulse Resp B/P (MAP) Pulse Ox O2 Delivery O2 Flow Rate FiO2 08/10/18 06:00 98.4 67 16 118/64 (82) 92 Room Air 08/09/18 23:45 2.0 I&O- Last 24 Hours up to 6 AM 08/10/18 06:00 Intake Total 3260 ml Output Total 200 ml Balance 3060 ml Laboratory Data 24H LABS Laboratory Tests 2 08/09/18 09:41: Bedside Glucose (Misc Panel) 82 Microbiology Microbiology 08/09/18 Blood Culture - Preliminary, Resulted No growth after 24 hours . All specim... UDAY CAPELLAN MD Aug 10, 2018 09:38
[2018-08-11 20:00] VITALS: BP 142/88
[2018-08-11 22:00] VITALS: BP 142/88
[2018-08-12] MEDS: OXAZEPAM 15 MG CAP PO SCH ×3 (05:57→18:18)
[2018-08-12 06:00] VITALS: BP 137/88
[2018-08-12] MEDS: SIMETHICONE 80 MG CHEW TAB PO SCH ×4 (09:52→21:34)
[2018-08-12] MEDS: PANTOPRAZOLE 40MG TAB (PROTONIX) PO SCH (09:53)
[2018-08-12] MEDS: LORazepam 2 MG/ML VIAL (J2060) IV PRN (09:59)
[2018-08-12] MEDS ORDERED: PRIL20TA2 PO (10:45)
[2018-08-12] MEDS ORDERED: FOLI1TAB11 PO (10:45)
[2018-08-12] MEDS ORDERED: SIME180C PO (10:45)
[2018-08-12] MEDS ORDERED: MULT1CHW39 PO (10:45)
[2018-08-12] MEDS ORDERED: THIA100T7 PO (10:45)
[2018-08-12] MEDS ORDERED: OXAZ15CA4 PO (10:45)
--- NOTE | 2018-08-12 10:56 | IPNPDOC ---
Date Seen The patient was seen on 08/12/18. Progress Note SUBJECTIVE: Pt seen and examined at the bedside, chart has been reviewed.patient has not passed HSE, and not safe or discharge. He is interested in etoh rehab, and [facility] has been consulted to provide referral. Improved tremors and restlessness, feelings of anxiety. no c/o parethesias,no hallucinations, abd pain, nausea, vomiting. c/o persistent hiccups. no hematemesis or brbpr, melena, or black tarry stools. OBJECTIVE: PHYSICAL EXAMINATION: VITAL SIGNS: PLS SEE BELOW GENERAL APPEARANCE: Middle aged man, hiccuping and with slight tremors. He is not pale, anicteric and afebrile HEENT: Atraumatic. Neck: Supple. LUNGS: Clear to auscultation bilaterally. CARDIOVASCULAR: S1 and 2 heard, no murmurs, rubs or gallops. ABDOMEN: Soft, slight epigastric tenderness with deep palpation, not distended. Bowel sounds hypoactive. MUSCULOSKELETAL: Apparently within normal limits. Positive for slight tremors EXTREMITIES: Slight tremors of extremities noted. No pedal edema, 2+ bilateral pedal pulses noted. NEUROLOGICAL: Awake, alert, oriented 3. PSYCHIATRIC: Normal affect LABORATORY DATA: See below. IMAGING: Chest one-view HISTORY: Drug overdose Comparison: None The lungs are clear. The heart is normal in size. The pulmonary vasculature is normal in appearance. Impression: No acute disease. Electronically Signed by Haile Cerrato MD 08/08/2018 01:52 P DD: Haile Cerrato MD 08/08/18 1351 DT: Robson 08/08/18 1352 DS: TERESA 08/08/18 1352 08/08/[address] Head without contrast HISTORY: Drug overdose COMPARISON: None There is no intraparenchymal hemorrhage, acute infarct, mass or midline shift. The ventricular system and cortical sulci as well as subarachnoid space in the posterior fossa are dilated consistent with mild volume loss. There is no extra cerebral collection. There is no fracture. The visualized sinuses are clear. IMPRESSION: Mild volume loss. Electronically Signed by Haile Cerrato MD 08/08/2018 02:33 P MICROBIOLOGY: Please see below. ASSESSMENT AND PLAN: Patient is a 47-year-old man. No known medical history other than being brought in by EMS on account of being found at home in bed, in feces and vomit with multiple bottles of vodka. EMS was activated by his estranged was concerned as she hadn't heard from him for about 3 days. It is reported she says they talked every day. Patient was found with altered sensorium and brought to the emergency room. He was evaluated with elevated serum alcohol as well as elevated creatinine kinase. At the time. Patient not reliable historian. However, at interview, I did notice some improvement in his mental status. Patient denied nausea, vomiting. Other than hicupping for the past 2-3 days. He also refers having had very little to eat for the past 2 days. No fever, no chills. No palpitations, no cough, no shortness of breath. He says since onset of hiccuping, he occasionally feels epigastric pains. No change in his bowel or urinary habits. Altered mental status/Alcohol intoxication,resolved. monitor for withdrawal. CIWA protocol. serax q6hrs, and prn ativan iv. no signs of aspiration. may continue po regular diet. PT HSE in the next 24-48hrs. reviewed ammonia levels. rine toxicology screen. ETOH abuse on MVI, thiamine, folate. serax. ciwa protocol Rhabdomyolysis. s/p ivfluids and encourage oral fluid intake. no renal dysfunction. avoid nephrotoxins. Hyperkalemia, on admission resolved with kayexalate. s/p calcium gluconate hyponatremia most likely from beer potomania. monitor mp serially Leukocytosis unspecified most likely reactive. no clear infectious etiology. no empiric antibiotics. code: full disposition: discharge with etoh inpt rehab if cleared by physical therapy VS, I&O, 24H, Alyse Vital Signs/I&O Vital Signs Date Time Temp Pulse Resp B/P (MAP) Pulse Ox O2 Delivery O2 Flow Rate FiO2 08/12/18 06:00 97.6 73 19 137/88 (104) 98 Room Air 08/09/18 23:45 2.0 I&O- Last 24 Hours up to 6 AM 08/12/18 06:00 Intake Total 1860 ml Balance 1860 ml Laboratory Data Microbiology Microbiology 08/09/18 Blood Culture - Preliminary, Resulted No Growth after 72 hours. All specime... UDAY CAPELLAN MD Aug 12, 2018 10:56
[2018-08-12 14:00] VITALS: BP 125/84
[2018-08-12 21:00] VITALS: BP 134/95
[2018-08-12] MEDS ORDERED: zolPIDEM TARTRATE 10MG TAB PO SCH (21:00)
[2018-08-12 22:00] VITALS: BP 134/95
[2018-08-13] MEDS: OXAZEPAM 15 MG CAP PO SCH ×2 (00:11→05:11)
[2018-08-13 06:00] VITALS: BP 130/82
[2018-08-13] MEDS: SIMETHICONE 80 MG CHEW TAB PO SCH (09:10)
[2018-08-13] MEDS: PANTOPRAZOLE 40MG TAB (PROTONIX) PO SCH (09:10)
--- NOTE | 2018-08-13 20:37 | ECGEPIP ---
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
--- NOTE | 2018-09-02 16:17 | DS.PDOC ---
Discharge Summary General Date of Admission Aug 08, 2018 at 19:23 Date of Discharge 08/12/18 Discharge Summary DISCHARGE DIAGNOSES: ACUTE ALCOHOL INTOXICATION ALTERED MENTAL STATUS ALCOHOL ABUSE RHABDOMYOLYSIS HYPERKALEMIA HYPONATREMIA REACTIVE LEUKOCYTOSIS DISCHARGE MEDICATIONS: PLS SEE BELOW HISTORY OF PRESENTING ILLNESS: Patient is a 47-year-old man. No known medical history other than being brought in by EMS on account of being found at home in bed, in feces and vomit with multiple bottles of vodka. EMS was activated by his estranged was concerned as she hadn't heard from him for about 3 days. It is reported she says they talked every day. Patient was found with altered sensorium and brought to the emergency room. He was evaluated with elevated serum alcohol as well as elevated creatinine kinase. At the time. Patient not reliable historian. However, at interview, I did notice some improvement in his mental status. Patient denied nausea, vomiting. Other than hicupping for the past 2-3 days. He also refers having had very little to eat for the past 2 days. No fever, no chills. No palpitations, no cough, no shortness of breath. He says since onset of hiccuping , he occasionally feels epigastric pains. No change in his bowel or urinary habits. HOSPITAL COURSE: Patient was treated for the following acute medical issues: Altered mental status/Alcohol intoxication,resolved. monitor for withdrawal. CIWA protocol. serax q6hrs, and prn ativan iv. no signs of aspiration. may continue po regular diet. PT HSE in the next 24-48hrs. reviewed ammonia levels. rine toxicology screen. ETOH abuse on MVI, thiamine, folate. serax. ciwa protocol Rhabdomyolysis. s/p ivfluids and encourage oral fluid intake. no renal dysfunction. avoid nephrotoxins. Hyperkalemia, on admission resolved with kayexalate. s/p calcium gluconate hyponatremia most likely from beer potomania. monitor mp serially Leukocytosis unspecified most likely reactive. no clear infectious etiology. no empiric antibiotics. code: full DISCHARGE PHYSICAL EXAMINATION: VITAL SIGNS: PLS SEE BELOW GENERAL APPEARANCE: Middle aged man, hiccuping and with slight tremors. He is not pale, anicteric and afebrile HEENT: Atraumatic. Neck: Supple. LUNGS: Clear to auscultation bilaterally. CARDIOVASCULAR: S1 and 2 heard, no murmurs, rubs or gallops. ABDOMEN: Soft, slight epigastric tenderness with deep palpation, not distended. Bowel sounds hypoactive. MUSCULOSKELETAL: Apparently within normal limits. Positive for slight tremors EXTREMITIES: Slight tremors of extremities noted. No pedal edema, 2+ bilateral pedal pulses noted. NEUROLOGICAL: Awake, alert, oriented 3. PSYCHIATRIC: Normal affect DISCHARGE LABORATORY DATA: See below. IMAGING: Chest one-view HISTORY: Drug overdose Comparison: None The lungs are clear. The heart is normal in size. The pulmonary vasculature is normal in appearance. Impression: No acute disease. Electronically Signed by Haile Cerrato MD 08/08/2018 01:52 P DD: Haile Cerrato MD 08/08/18 1351 DT: Robson 08/08/18 1352 DS: TERESA 08/08/18 1352 08/08/[address] Head without contrast HISTORY: Drug overdose COMPARISON: None There is no intraparenchymal hemorrhage, acute infarct, mass or midline shift. The ventricular system and cortical sulci as well as subarachnoid space in the posterior fossa are dilated consistent with mild volume loss. There is no extra cerebral collection. There is no fracture. The visualized sinuses are clear. IMPRESSION: Mild volume loss. Electronically Signed by Haile Cerrato MD 08/08/2018 02:33 P MICROBIOLOGY: Please see below. TIME SPENT ON DISCHARGE: 30 MIN Discharge Medications Scheduled (Multivitamin Adult) 1 Chw Chw, 1 CHW PO DAILY Folic Acid (Folic Acid) 1 Mg Tab, 1 TAB PO DAILY Omeprazole Magnesium (Prilosec Otc) 20 Mg Tab, 20 MG PO DAILY Simethicone (Simethicone) 180 Mg Cap, 180 MG PO TID Thiamine HCl (Thiamine HCl) 100 Mg Tab, 100 MG PO DAILY Scheduled PRN Oxazepam (Oxazepam) 15 Mg Cap, 15 MG PO TIDP PRN for WITHDRAWAL SYMPTOMS Allergies Coded Allergies: No Known Drug Allergy (Unverified Allergy, Unknown, 08/08/18) UDAY CAPELLAN MD Sep 02, 2018 16:17
== END 2018-08-13 11:25 | disposition home or self-care (01) | DRG 775 ==
LOC: M ED 13:28 → M ED INP 19:23 → M PCU 21:33 → M MS5PR 08-09 14:00
PROVIDERS: ADMIT General Practice; ATTEND General Practice
DX: F10.129 Alcohol abuse with intoxication, unspecified (principal); M62.82 Rhabdomyolysis; E87.5 Hyperkalemia; E87.1 Hypo-osmolality and hyponatremia; D72.829 Elevated white blood cell count, unspecified; Z79.899 Other long term (current) drug therapy

== ENCOUNTER → 2018-11-18 | Outpatient (REF) | payer OTHER ==
[~2018-11-18] MED LIST: FLUO40CA PO; FOLI1TAB11 PO; MULT200T7 PO; OXAZ15CA4 PO; PRIL20TA2 PO; SIME180C PO; THIA100T7 PO; TRAZ-160 PO
[2018-11-18 13:39] LABS: BASO % 0.8 % (0.0-1.0); EOS # 0.2 10^3/uL (0.0-0.50); EOS % 4.2 % (0.0-3.0); HEMATOCRIT 43.5 % (42.0-52.0); HEMOGLOBIN 14.6 g/dl (13.5-17.5); LYMPH # 1.5 10^3/uL (1.5-4.5); LYMPH % 31.5 % (24.0-44.0); MEAN CORPUSCULAR HEMOGLOBIN 31.9 pg (27.0-33.0); MEAN CORPUSCULAR HGB CONC 33.6 g/dl (32.0-36.5); MEAN CORPUSCULAR VOLUME 95.2 fl (80.0-96.0); MONO # 0.6 10^3/uL (0.0-0.8); MONO % 13.4 % (0.0-5.0); NEUTROPHILS # 2.4 10^3/uL (1.8-7.7); NEUTROPHILS % 49.9 % (36.0-66.0); PLATELET COUNT, AUTOMATED 179 10^3/uL (150-450); RED BLOOD COUNT 4.57 10^6/uL (4.30-6.10); WHITE BLOOD COUNT 4.8 10^3/uL (4.0-10.0)
[2018-11-18 14:08] LABS: ALBUMIN 4.1 GM/DL (3.2-5.2); ALT/SGPT 78 U/L (12-78); BILIRUBIN,TOTAL 0.7 MG/DL (0.2-1.0); BLOOD UREA NITROGEN 14 MG/DL (7-18); CALCIUM LEVEL 8.9 MG/DL (8.5-10.1); CARBON DIOXIDE LEVEL 29 MEQ/L (21-32); CHLORIDE LEVEL 104 MEQ/L (98-107); CHOLESTEROL LEVEL 187 MG/DL (<200); CHOLESTEROL RISK RATIO 1.764 (<5); CREATININE FOR GFR 0.73 MG/DL (0.70-1.30); FREE T4 0.91 NG/DL (0.76-1.46); GLOMERULAR FILTRATION RATE > 60.0 (>60); GLUCOSE, FASTING 78 MG/DL (70-100); HDL CHOLESTEROL 106 MG/DL (>40); LDL CHOLESTEROL 65 MG/DL (<100); NON-HDL-C 81 MG/DL; POTASSIUM SERUM 4.5 MEQ/L (3.5-5.1); SODIUM LEVEL 139 MEQ/L (136-145); THYROID STIMULATING HORMONE 0.642 uIU/ML (0.358-3.740); TOTAL 25(OH) VITAMIN D 33.9 NG/ML (30.0-100.0); TOTAL PROTEIN 7.5 GM/DL (6.4-8.2); TRIGLYCERIDES LEVEL 80 MG/DL (<150)
[2018-11-18 14:11] LABS: HEMOGLOBIN A1c 5.1 %
[2018-11-20 00:07] LABS: Lyme Disease IgG/IgM Antibodie <0.91 ISR (0.00-0.90); Lyme Disease IgM Ab Quantitati <0.80 index (0.00-0.79)
== END ==
LOC: M LAB REF 12:58
PROVIDERS: ATTEND Family Medicine
DX: Z13.228 Encounter for screening for other metabolic disorders (principal)

== ENCOUNTER 2019-11-20 08:29 | Inpatient (IN) | payer OTHER ==
[~2019-11-20] VITALS: Ht 172.7 cm; Wt 64.7 kg
[~2019-11-20 08:29] MED LIST changes: -TRAZ-160 PO; +TRAZ-252 PO
[2019-11-20] MEDS ORDERED: NS 1,000 ML IV SCH (08:53)
[2019-11-20] MEDS ORDERED: ACETAMINOPHEN 500 MG TAB PO ONE (09:00)
[2019-11-20] MEDS ORDERED: THIAMINE 100 MG TAB PO SCH (09:00)
[2019-11-20] MEDS ORDERED: MULTIVITAMINS/MINERALS THERAP 1 TAB PO SCH (09:00)
[2019-11-20] MEDS ORDERED: FOLIC ACID 1 MG TAB PO SCH (09:00)
[2019-11-20] MEDS ORDERED: LORazepam 2 MG TAB PO PRN (09:00)
[2019-11-20 09:33] LABS: AMORPHOUS SEDIMENT SMALL (NEGATIVE); APPEARANCE, URINE CLEAR (CLEAR); BACTERIA, URINE AUTO NEGATIVE (NEGATIVE); BILIRUBIN, URINE AUTO NEGATIVE (NEGATIVE); BLOOD, URINE BLOOD 3+ (NEGATIVE); COLOR, URINE YELLOW (YELLOW); GLUCOSE, URINE (UA) AUTO NEGATIVE (NEGATIVE); GRANULAR CAST, URINE AUTO 3 /LPF; KETONE, URINE AUTO 2+ mg/dL (NEGATIVE); LEUKOCYTE ESTERASE, URINE AUTO NEGATIVE (NEGATIVE); MUCUS, URINE SMALL (NEGATIVE); NITRITE, URINE AUTO NEGATIVE (NEGATIVE); PROTEIN, URINE AUTO 2+ mg/dL (NEGATIVE); RBC, URINE AUTO 3 /HPF (0-3); SPECIFIC GRAVITY URINE AUTO 1.018 (1.002-1.035); SQUAMOUS EPITHELIAL CELL UR AU 0 /HPF (0-6); UROBILINOGEN, URINE AUTO 0.2 mg/dL (0.0-2.0); WBC, URINE AUTO 1 /HPF (0-3)
[2019-11-20 09:48] LABS: VENOUS BASE EXCESS -6.3 (-2.0-2.0); VENOUS HCO3 15.6 MEQ/L (23.0-27.0); VENOUS O2 SATURATION 95.1 % (60.0-80.0); VENOUS PARTIAL PRESSURE CO2 22.5 mmHg (38.0-50.0); VENOUS PARTIAL PRESSURE O2 75.2 mmHg (30.0-50.0); VENOUS PH 7.458 UNITS (7.330-7.430); VENOUS STANDARD HCO3 19.3 MEQ/L; VENOUS TOTAL CO2 16.3 MEQ/L (24.0-28.0)
[2019-11-20 09:53] LABS: AMPHETAMINES LEVEL URINE NEGATIVE (NEGATIVE); BARBITURATES URINE NEGATIVE (NEGATIVE); BENZODIAZEPINES URINE NEGATIVE (NEGATIVE); CANNABINOIDS URINE NEGATIVE (NEGATIVE); COCAINE METABOLITE URINE NEGATIVE (NEGATIVE); METHADONE URINE NEGATIVE (NEGATIVE); OPIATES URINE NEGATIVE (NEGATIVE); PHENCYCLIDINE URINE NEGATIVE (NEGATIVE)
[2019-11-20 09:55] LABS: HEMATOCRIT 36.3 % (42.0-52.0); HEMOGLOBIN 12.4 g/dl (13.5-17.5); MEAN CORPUSCULAR HEMOGLOBIN 31.5 pg (27.0-33.0); MEAN CORPUSCULAR HGB CONC 34.2 g/dl (32.0-36.5); MEAN CORPUSCULAR VOLUME 92.1 fl (80.0-96.0); RED BLOOD COUNT 3.94 10^6/uL (4.30-6.10); WHITE BLOOD COUNT 8.3 10^3/uL (4.0-10.0)
--- NOTE | 2019-11-20 10:06 | REP ---
CHEST, SINGLE VIEW: There is no evidence of acute infiltrate. No pleural effusion is seen. The heart is normal in size. The mediastinal silhouette is unremarkable. The visualized osseous structures are intact. IMPRESSION: No acute pulmonary disease. Electronically Signed by Geovani Gregg MD 11/20/2019 12:52 P
[2019-11-20 10:21] LABS: PLATELET COUNT, AUTOMATED 68 10^3/uL (150-450)
[2019-11-20 10:25] LABS: ANISOCYTOSIS 1+; ATYPICAL LYMPH 4 % (0-5); BASOPHILS 1 % (0-1); LYMPHOCYTES 9 % (16-44); MONOCYTES 6 % (0-5); NEUTROPHILS 76 % (28-66); PLATELET ESTIMATE DECREASED (NORMAL)
[2019-11-20 10:36] LABS: OSMOLALITY SERUM 271 MOSM/KG (275-295)
[2019-11-20 10:39] LABS: ACETAMINOPHEN LEVEL < 2.0 UG/ML (10.0-30.0); ALBUMIN 4.1 GM/DL (3.2-5.2); ALT/SGPT 144 U/L (12-78); BILIRUBIN,DIRECT 0.6 MG/DL (0.0-0.2); BILIRUBIN,TOTAL 1.8 MG/DL (0.2-1.0); BLOOD UREA NITROGEN 10 MG/DL (7-18); CALCIUM LEVEL 8.7 MG/DL (8.5-10.1); CARBON DIOXIDE LEVEL 18 MEQ/L (21-32); CHLORIDE LEVEL 93 MEQ/L (98-107); CK-MB VALUE MASS 5.4 NG/ML (<3.6); CPK CREATINE PHOSPHOKINASE 5240 U/L (39-308); CREATININE FOR GFR 0.68 MG/DL (0.70-1.30); ETHYL ALCOHOL (ETHANOL) < 0.003 % (0.000-0.010); GLOMERULAR FILTRATION RATE > 60.0 (>56); GLUCOSE, FASTING 58 MG/DL (70-100); POTASSIUM SERUM 3.9 MEQ/L (3.5-5.1); SALICYLATE LEVEL 2.2 MG/DL (5.0-30.0); SODIUM LEVEL 132 MEQ/L (136-145); THYROID STIMULATING HORMONE 0.821 uIU/ML (0.358-3.740); TOTAL PROTEIN 7.2 GM/DL (6.4-8.2); TROPONIN I 0.02 NG/ML (< 0.10)
[2019-11-20] MEDS ORDERED: DEXTROSE 50% 50 ML SYRINGE IV STA (10:42)
[2019-11-20] MEDS ORDERED: OXAZEPAM 15 MG CAP PO ONE (11:30)
--- NOTE | 2019-11-20 11:40 | REP ---
CT BRAIN WITHOUT CONTRAST: HISTORY: Drug overdose. Comparison head CT study August 08, 2018. 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 The bony calvarium is intact. The visualized paranasal sinuses are clear. No intraorbital abnormality is seen. On soft tissue window settings, there is moderate diffuse cerebral and cerebellar atrophy, atypical at this relatively young age. This is unchanged however from August 08, 2018 prior study. There is no evidence of intracranial hemorrhage. No evidence of acute infarction is seen. No mass, extra-axial fluid collection, or midline shift is observed. IMPRESSION: Diffuse moderate cerebral and cerebellar volume loss again noted. No acute intracranial abnormality. Electronically Signed by Tom Quiroga MD 11/20/2019 11:56 A
--- NOTE | 2019-11-20 11:42 | REP ---
CT STUDY OF THE CERVICAL SPINE WITHOUT CONTRAST: HISTORY: Drug overdose. No comparison cervical spine imaging. TECHNIQUE: Helical scanning is acquired and overlapping 2 mm high resolution axial images were generated and reviewed at bone and soft tissue window settings. Coronal and sagittal multiplanar re-formations images are generated. CT FINDINGS: There is no evidence of cervical spine element fracture. No skull base fracture is seen. Cervical vertebral body heights are preserved. There is slight reversal of the normal cervical lordosis. Alignment is otherwise normal. There are degenerative disc changes at C4-5 and C5-6 and C6-7 mild in degree. Facet joints are normally aligned bilaterally at each cervical level on multiplanar re-formations images. There is no evidence of intraspinal or paraspinal hematoma. No extra vertebral abnormality is seen. IMPRESSION: Mild degenerative spondylosis changes. Otherwise negative CT study of the cervical spine without contrast. No fracture seen. Electronically Signed by Tom Quiroga MD 11/20/2019 11:56 A
[2019-11-20] MEDS ORDERED: MOM 30ML SUSPENSION UDC PO PRN (12:15)
[2019-11-20] MEDS ORDERED: MAALOX 30 ML SUSP *UDC PO PRN (12:15)
--- NOTE | 2019-11-20 12:49 | HPEPDOC ---
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 He reports weakness in his upper or lower extremity for 3 days, he has decreased by mouth intake but has been consuming alcohol, nonetheless. He has attempted to quit alcohol consumption previously, and does report seizure activity with ETOH withdrawal. EMS was called, patient was arousable but complains of weakness and shortness of breath during that time. He was febrile in the ED at 101F, reports resolution of dyspnea. He reports urinary incontinence. He denies any headaches, chest pain, shortness of breath, nausea, vomiting, abdominal pain, depression, anxiety, SI or HI. There is noted that he was tremulous and was bruising at the 4 head, b ilateral knees. CT head, C-spine, UA, COPD, screen, CXR were negative. Patients last EtOH consumption was 3 days ago, typically consumes 2 handles with wine and beer. In the ED, patient was found to be tachycardic in the 150s, saturating well on room air. Labs include WBC of 8.3, hemoglobin of 12.4, hematocrit of 36.3, MCV of 92.1, platelet 68. UDS negative, salicylates, acetaminophen, EtOH also negative. Urinalysis reveals 2+ protein, plus ketone, 3+ blood, negative for nitrates and leukocyte esterase, positive for myoglobin. He was given D5, oxazepam 30 mg by mouth 1. Glucose improved to 87. Previous hospitalization, per records. Approximately a year ago was for similar presentation. ROS: 10 point review systems negative except per above. PMH: see above PSH: See above, right wrist surgery Family history: Reviewed and noncontributory Social history: He does not smoke, consumes alcohol, denies drugs Medications: Reviewed Allergies: NKDA PHYSICAL EXAMINATION: VITAL SIGNS: Please see below. GENERAL: slender appearing male who appears fatigued, but able to speak in full sentences HEENT: Normocephalic, atraumatic, dry mucous membranes NECK: Supple CARDIOVASCULAR EXAMINATION: S1, S2 RESPIRATORY EXAMINATION: CTAB ABDOMINAL EXAMINATION: +BS, nontender to palpation, negative Aguilar's EXTREMITIES: no edema SKIN: No rash NEUROLOGICAL EXAMINATION: Awake PSYCHIATRIC EXAMINATION: Calm and cooperative, appropriate affect Pt is a 49yoM with PMH of ET OH disorder presents with alcohol intoxication and rhabdomyolysis, deconditioning. Inpatient telemetry. #Rhabdomyolysis without JOSE, likely secondary to EtOH consumption, continue IVF, anion gap, likely secondary to rhabdo. Continue IVF, PT. #Tachycardia, secondary to dehydration, will continue IV fluids. #Alcohol abuse disorder with hyperbilirubinemia, and elevated transaminase, likely EtOH and etiology, if worsening, we'll consider hepatitis panel. #Thrombocytopenia, likely related to EtOH consumption #Anemia: Will consider obtaining iron, B12, folate levels. Continue to monitor hemoglobin and hematocrit. #Hypoglycemia: D5 NS maintenance fluids #Mood disorders: Resume home Lexapro, patient is agreeable to taking medication, night sweats, denies SI, HI #Urinary incontinence: We'll review home meds and continue home meds #Insomnia: Reports taking trazodone when necessary, we'll resume home medication #DVT ppx: SCD Full code Dispo: Pt will require 2 midnights, will need outpatient follow-up. Vital Signs Vital Signs Date Time Temp Pulse Resp B/P (MAP) Pulse Ox O2 Delivery O2 Flow Rate FiO2 11/20/19 11:25 100.0 11/20/19 10:55 116/72 (87) 11/20/19 10:45 150 22 98 Room Air Laboratory Data Labs 24H Laboratory Tests 2 11/20/19 09:04: Neutrophils (%) (Auto) , Nucleated Red Blood Cells % (auto) 0.0, Neutrophils 76H, Band Neutrophils 4, Lymphocytes (Manual) 9L, Monocytes (Manual) 6H, Basophils (Manual) 1, Atypical Lymphocytes 4, Anisocytosis 1+, Platelet Estimate DECREASED, Immature Platelet Fraction 6.6, Blood Gas Bicarbonate Standard 19.3, Venous Blood pH 7.458H, Venous Blood Partial Pressure CO2 22.5L, Venous Blood Partial Pressure O2 75.2H, Venous Blood Total Carbon Dioxide 16.3L, Venous Blood HCO3 15.6L, Venous Blood Oxygen Saturation 95.1H, Venous Blood Base Excess - 6.3L, Anion Gap 21H, Glomerular Filtration Rate > 60.0, Osmolality 271L, Lactic Acid Level 1.9, Calcium Level 8.7, Total Bilirubin 1.8H, Direct Bilirubin 0.6H, Aspartate Amino Transf (AST/SGOT) 211H, Alanine Aminotransferase (ALT/SGPT) 144H, Alkaline Phosphatase 71, Total Creatine Kinase 5240H, Creatine Kinase MB 5.4H, Creatine Kinase MB Relative Index 0.10, Troponin I 0.02, Total Protein 7.2, Albumin 4.1, Albumin/Globulin Ratio 1.32, Thyroid Stimulating Hormone (TSH) 0.821, Salicylates Level 2.2L, Acetaminophen Level < 2.0L, Ethyl Alcohol Level < 0.003, Coronavirus (COVID-19)(PCR) NEGATIVE 11/20/19 09:09: Urine Color YELLOW, Urine Appearance CLEAR, Urine pH 6.0, Urine Specific Turner 1.018, Urine Protein 2+H, Urine Glucose (Auto)(UA) NEGATIVE, Urine Ketones (Auto) 2+H, Urine Blood 3+H, Urine Nitrite NEGATIVE, Urine Bilirubin NEGATIVE, Urine Urobilinogen 0.2, Urine Leukocyte Esterase (Auto) NEGATIVE, Urine WBC (Auto) 1, Urine RBC (Auto) 3, Urine Hyaline Casts (Auto) 4, Urine Bacteria (Auto) NEGATIVE, Urine Squamous Epithelial Cells 0, Urine Amorphous Sediment (Auto) SMALLH, Urine Granular Casts (Auto) 3, Urine Mucus (Auto) SMALL, Urine Sp erm (Auto) , Urine Opiates Screen NEGATIVE, Urine Methadone Screen NEGATIVE, Urine Barbiturates Screen NEGATIVE, Urine Phencyclidine Screen NEGATIVE, Urine Amphetamines Screen NEGATIVE, Urine Benzodiazepines Screen NEGATIVE, Urine Cocaine Metabolite Screen NEGATIVE, Urine Cannabinoids Screen NEGATIVE 11/20/19 11:56: Bedside Glucose (Misc Panel) 87 CBC/BMP Laboratory Tests 11/20/19 09:04 Microbiology Microbiology 11/20/19 Respiratory Virus Panel (PCR) (LUCIANA) - Final, Complete 11/20/19 Blood Culture, Received Pending 11/20/19 Blood Culture, Received Pending Home Medications No Active Prescriptions or Reported Meds Allergies Coded Allergies: No Known Allergies (Unverified , 11/20/19) A-FIB/CHADSVASC A-FIB History Current/History of A-Fib/PAF?: No JU BROWN MD November 20, 2019 12:18
[2019-11-20] MEDS: NS 500 ML IV SCH ×3 (12:52→13:44)
[2019-11-20 13:30] VITALS: BP 130/82
[2019-11-20] MEDS: D5W/0.45% SODIUM CHLORIDE 1,000 ML IV SCH ×2 (13:44→23:33)
[2019-11-20 14:00] VITALS: BP 130/82
[2019-11-20 20:28] VITALS: BP 117/74
[2019-11-20] MEDS: THIAMINE 100 MG TAB PO SCH (20:28)
[2019-11-20] MEDS: LORazepam 2 MG TAB PO PRN (20:28)
[2019-11-20 22:00] VITALS: BP 116/74
--- NOTE | 2019-11-20 22:04 | ECGEPIP ---
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
[2019-11-21] VITALS (8 sets, daily range): BP systolic 102–128; BP diastolic 69–86
[2019-11-21 06:04] LABS: HEMOGLOBIN 11.7 g/dl (13.5-17.5); MEAN CORPUSCULAR HEMOGLOBIN 31.5 pg (27.0-33.0); MEAN CORPUSCULAR HGB CONC 34.4 g/dl (32.0-36.5); MEAN CORPUSCULAR VOLUME 91.4 fl (80.0-96.0); RED BLOOD COUNT 3.72 10^6/uL (4.30-6.10)
[2019-11-21 06:08] LABS: PLATELET COUNT, AUTOMATED 66 10^3/uL (150-450)
[2019-11-21 06:32] LABS: ALBUMIN 3.6 GM/DL (3.2-5.2); ALT/SGPT 147 U/L (12-78); BILIRUBIN,TOTAL 1.4 MG/DL (0.2-1.0); BLOOD UREA NITROGEN 6 MG/DL (7-18); CALCIUM LEVEL 8.6 MG/DL (8.5-10.1); CARBON DIOXIDE LEVEL 28 MEQ/L (21-32); CHLORIDE LEVEL 101 MEQ/L (98-107); CREATININE FOR GFR 0.63 MG/DL (0.70-1.30); GLOMERULAR FILTRATION RATE > 60.0 (>56); GLUCOSE, FASTING 88 MG/DL (70-100); POTASSIUM SERUM 3.2 MEQ/L (3.5-5.1); SODIUM LEVEL 137 MEQ/L (136-145); TOTAL PROTEIN 6.3 GM/DL (6.4-8.2)
[2019-11-21] MEDS ORDERED: POTASSIUM CHLORIDE 10 MEQ SR TABLET PO ONE (08:30)
[2019-11-21 08:40] LABS: MAGNESIUM LEVEL 1.5 MG/DL (1.8-2.4)
[2019-11-21] MEDS: THIAMINE 100 MG TAB PO SCH ×2 (09:43→20:17)
[2019-11-21] MEDS: FOLIC ACID 1 MG TAB PO SCH (09:43)
[2019-11-21] MEDS: MULTIVITAMINS/MINERALS THERAP 1 TAB PO SCH (09:43)
[2019-11-21] MEDS: D5W/0.45% SODIUM CHLORIDE 1,000 ML IV SCH ×2 (09:44→22:49)
--- NOTE | 2019-11-21 12:34 | IPNPDOC ---
Date Seen The patient was seen on 11/21/19. Progress Note SUBJECTIVE: no o/n events, still tremulous. PT eval with recommendations, pt will require more therapy. Hb declined from 12.4-11.7, with platelets slight decrease 68 to 66, viral panel reveals no growth, blood cultures 2 obtained on 11/20/2019 are negative for any growth. OBJECTIVE PHYSICAL EXAMINATION: VITAL SIGNS: Please see below. GENERAL: slender appearing male who appears fatigued, but able to speak in full sentences HEENT: Normocephalic, atraumatic, dry mucous membranes NECK: Supple CARDIOVASCULAR EXAMINATION: S1, S2 RESPIRATORY EXAMINATION: CTAB ABDOMINAL EXAMINATION: +BS, nontender to palpation, negative Aguilar's EXTREMITIES: no edema SKIN: No rash NEUROLOGICAL EXAMINATION: Awake PSYCHIATRIC EXAMINATION: Calm and cooperative, appropriate affect Pt is a 49yoM with PMH of ET OH disorder presents with alcohol intoxication and rhabdomyolysis, deconditioning. Inpatient telemetry. #Rhabdomyolysis without JOSE, likely secondary to EtOH consumption, continue IVF, anion gap, likely secondary to rhabdo, resolved. Continue IVF, PT. #Tachycardia, secondary to dehydration, resolved, will continue IV fluids. #Alcohol abuse disorder with hyperbilirubinemia, and elevated transaminase, likely EtOH and etiology, if worsening, we'll consider hepatitis panel. #Thrombocytopenia, likely related to EtOH consumption, slight decrease, but overall unchanged #Anemia: Will consider obtaining iron, B12, folate levels. Continue to monitor hemoglobin and hematocrit. #Hypoglycemia: D5 NS maintenance fluids #Mood disorders: Resume home Lexapro, patient is agreeable to taking medication, denies SI, HI #Urinary incontinence: We'll review home meds and continue home meds #Insomnia: Reports taking trazodone when necessary, we'll resume home medication #DVT ppx: SCD Full code Dispo: Pt will require 2 midnights, will need outpatient follow-up. VS, I&O, 24H, Fishbone Vital Signs/I&O Vital Signs Date Time Temp Pulse Resp B/P (MAP) Pulse Ox O2 Delivery O2 Flow Rate FiO2 11/21/19 10:00 95 123/85 11/21/19 06:00 98.0 20 100 11/20/19 13:30 Room Air I&O- Last 24 Hours up to 6 AM 11/21/19 06:00 Intake Total 3980 ml Output Total 1125 ml Balance 2855 ml Laboratory Data 24H LABS Laboratory Tests 2 11/21/19 05:40: Nucleated Red Blood Cells % (auto) 0.0, Anion Gap 8, Glomerular Filtration Rate > 60.0, Calcium Level 8.6, Magnesium Level 1.5L, Total Bilirubin 1.4H, Aspartate Amino Transf (AST/SGOT) 381H, Alanine Aminotransferase (ALT/SGPT) 147H, Alkaline Phosphatase 60, Total Protein 6.3L, Albumin 3.6, Albumin/Globulin Ratio 1.33 CBC/BMP Laboratory Tests 11/21/19 05:40 Microbiology Microbiology 11/20/19 Respiratory Virus Panel (PCR) (LUCIANA) - Final, Complete 11/20/19 Blood Culture - Preliminary, Resulted No growth after 24 hours . All specim... 11/20/19 Blood Culture - Preliminary, Resulted No growth after 24 hours . All specim... JU BROWN MD November 21, 2019 12:34
[2019-11-21] MEDS ORDERED: MAG SULF 1GM/100ML (MAG RUN) 1 GM in IV 1 EA IV ONE (12:45)
[2019-11-21] MEDS ORDERED: OXAZEPAM 15 MG CAP PO ONE (18:00)
[2019-11-21] MEDS: LORazepam 2 MG TAB PO PRN (20:17)
[2019-11-21 21:11] LABS: APPEARANCE, URINE CLEAR (CLEAR); BACTERIA, URINE AUTO 1+ (NEGATIVE); BILIRUBIN, URINE AUTO NEGATIVE (NEGATIVE); BLOOD, URINE BLOOD 1+ (NEGATIVE); COLOR, URINE STRAW (YELLOW); GLUCOSE, URINE (UA) AUTO NEGATIVE (NEGATIVE); KETONE, URINE AUTO NEGATIVE (NEGATIVE); LEUKOCYTE ESTERASE, URINE AUTO NEGATIVE (NEGATIVE); NITRITE, URINE AUTO NEGATIVE (NEGATIVE); PROTEIN, URINE AUTO NEGATIVE (NEGATIVE); RBC, URINE AUTO 1 /HPF (0-3); SPECIFIC GRAVITY URINE AUTO 1.002 (1.002-1.035); SQUAMOUS EPITHELIAL CELL UR AU 0 /HPF (0-6); UROBILINOGEN, URINE AUTO 0.2 mg/dL (0.0-2.0); WBC, URINE AUTO 1 /HPF (0-3)
--- NOTE | 2019-11-21 22:18 | REPVR ---
PROCEDURE INFORMATION: Exam: US Pelvis Limited, Male Exam date and time: 11/21/2019 9:44 PM Age: 49 years old Clinical indication: Other: Blood in urine; Additional info: Penile bloody drainage noted; Complete renal/bladder u/s TECHNIQUE: Imaging protocol: Real-time pelvic ultrasound with image documentation. COMPARISON: No relevant prior studies available. FINDINGS: Prostate: Prostate gland measures 4.6 x 3.3 x 4.7 cm consistent with mild prostatomegaly. Bladder: Pre voiding volume of the bladder 578 cc. Postvoiding bladder volume 299 cc. Bladder intrinsically unremarkable. Bilateral ureteral jets demonstrated. IMPRESSION: Moderate postvoiding residual urine volume within the bladder. No bladder mass demonstrated. Mild prostatomegaly. Electronically signed by: Sarkis Paredes On 11/21/2019 22:18:04 PM
--- NOTE | 2019-11-21 22:27 | REPVR ---
PROCEDURE INFORMATION: Exam: US Retroperitoneal Limited, Kidneys Exam date and time: 11/21/2019 9:44 PM Age: 49 years old Clinical indication: Other: Blood in urine; Additional info: Penile bloody drainage noted; Complete renal/bladder u/s TECHNIQUE: Imaging protocol: Real-time ultrasound of the retroperitoneum with image documentation. Examination was focused on the kidneys. COMPARISON: No relevant prior studies available. FINDINGS: Liver: The liver is diffusely echogenic relative to the right kidney, findings consistent with steatosis. Right kidney: Right kidney measures 11.4 x 5.7 x 5 cm. Left kidney: Left kidney measures 12 x 5 x 6.5 cm. 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 IMPRESSION: 1. Hepatic steatosis. 2. 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 3. Otherwise unremarkable scan of the kidneys. Electronically signed by: Sarkis Paredes On 11/21/2019 22:27:04 PM
[2019-11-22 00:30] VITALS: BP 121/83
[2019-11-22 06:00] VITALS: BP 120/83
[2019-11-22 06:58] LABS: HEMATOCRIT 34.7 % (42.0-52.0); MEAN CORPUSCULAR HEMOGLOBIN 32.1 pg (27.0-33.0); MEAN CORPUSCULAR HGB CONC 34.6 g/dl (32.0-36.5); MEAN CORPUSCULAR VOLUME 92.8 fl (80.0-96.0); RED BLOOD COUNT 3.74 10^6/uL (4.30-6.10); WHITE BLOOD COUNT 4.9 10^3/uL (4.0-10.0)
[2019-11-22 07:01] LABS: PLATELET COUNT, AUTOMATED 84 10^3/uL (150-450)
[2019-11-22 07:06] LABS: INR 0.89; PROTHROMBIN TIME 11.8 SECONDS (11.8-14.0)
[2019-11-22 07:07] LABS: PARTIAL THROMBOPLASTIN TIME 24.7 SECONDS (25.0-38.4)
[2019-11-22 07:18] LABS: ALBUMIN 3.8 GM/DL (3.2-5.2); ALT/SGPT 160 U/L (12-78); BLOOD UREA NITROGEN 3 MG/DL (7-18); CALCIUM LEVEL 8.8 MG/DL (8.5-10.1); CARBON DIOXIDE LEVEL 27 MEQ/L (21-32); CHLORIDE LEVEL 104 MEQ/L (98-107); CREATININE FOR GFR 0.49 MG/DL (0.70-1.30); GLOMERULAR FILTRATION RATE > 60.0 (>56); GLUCOSE, FASTING 89 MG/DL (70-100); IRON (FE) 54 UG/DL (65-175); POTASSIUM SERUM 3.4 MEQ/L (3.5-5.1); SODIUM LEVEL 138 MEQ/L (136-145); TOTAL PROTEIN 6.7 GM/DL (6.4-8.2)
[2019-11-22] MEDS: THIAMINE 100 MG TAB PO SCH ×2 (08:35→20:39)
[2019-11-22] MEDS: FOLIC ACID 1 MG TAB PO SCH (08:35)
[2019-11-22] MEDS: MULTIVITAMINS/MINERALS THERAP 1 TAB PO SCH (08:35)
[2019-11-22 08:36] VITALS: BP 127/88
[2019-11-22] MEDS: LORazepam 2 MG TAB PO PRN (08:43)
[2019-11-22] MEDS: D5W/0.45% SODIUM CHLORIDE 1,000 ML IV SCH ×2 (09:02→20:39)
[2019-11-22 14:00] VITALS: BP 134/94
--- NOTE | 2019-11-22 14:03 | IPNPDOC ---
Date Seen The patient was seen on 11/22/19. Progress Note SUBJECTIVE: Patient complained of hematuria yesterday, now resolved, repeat UA. Suggest improvement of rhabdomyolysis, no JOSE. Ultrasound bladder reveals no acute processes, no masses, renal ultrasound reveals hepatic steatosis, non- shadowing hyperechoic focus on the inferior left kidney measuring 8 x 7 x 10 mm, suggestive of angiomyolipoma. Labs today reveal hypokalemia, will replace, reevaluate, magnesium level, pending folate and B12 levels, iron levels low, will start ferrous sulfate, hemoglobin and hematocrit improved, hepatitis panel pending. Trial of Serax yesterday with minimal improvement, will increase frequency of CIWA protocol. OBJECTIVE PHYSICAL EXAMINATION: VITAL SIGNS: Please see below. GENERAL: slender appearing male , able to speak in full sentences, + tremors HEENT: Normocephalic, atraumatic, dry mucous membranes NECK: Supple CARDIOVASCULAR EXAMINATION: S1, S2 RESPIRATORY EXAMINATION: CTAB ABDOMINAL EXAMINATION: +BS, nontender to palpation, negative Aguilar's EXTREMITIES: no edema SKIN: No rash NEUROLOGICAL EXAMINATION: Awake PSYCHIATRIC EXAMINATION: Calm and cooperative, appropriate affect Pt is a 49yoM with PMH of ET [place] disorder presents with alcohol intoxication and rhabdomyolysis, deconditioning. Inpatient telemetry. #Rhabdomyolysis without JOSE, likely secondary to EtOH consumption, continue IVF, anion gap, likely secondary to rhabdo, resolved. Continue IVF, PT. #Alcohol abuse disorder with hyperbilirubinemia, and elevated transaminase, likely EtOH and etiology, increase frequency of CIWA protocol, follow-up hepatitis panel. #Tachycardia, secondary to dehydration, resolved, will continue IV fluids. #Thrombocytopenia, likely related to EtOH consumption, improved #Anemia: Iron deficient, will follow-up on B12 and folate levels, H&H improving, will start iron supplements #Hypoglycemia: D5 NS maintenance fluids, stable #Hypomagnesemia, replace, monitor, likely contributing to hypokalemia, replace #Mood disorders: Resume home Lexapro, patient is agreeable to taking medication, denies SI, HI #Urinary incontinence: We'll review home meds and continue home meds #Insomnia: Reports taking trazodone when necessary, we'll resume home medication #DVT ppx: SCD Full code Dispo: Anticipated DC on 11/24/2019 to rehabilitation versus home PT VS, I&O, 24H, Fishbone Vital Signs/I&O Vital Signs Date Time Temp Pulse Resp B/P (MAP) Pulse Ox O2 Delivery O2 Flow Rate FiO2 11/22/19 08:36 105 127/88 11/22/19 06:00 98.9 17 98 Room Air I&O- Last 24 Hours up to 6 AM 11/22/19 06:00 Intake Total 2980 ml Output Total 4350 ml Balance -1370 ml Laboratory Data 24H LABS Laboratory Tests 2 11/21/19 20:58: Urine Color STRAW, Urine Appearance CLEAR, Urine pH 8.0, Urine Specific [place] 1.002, Urine Protein NEGATIVE, Urine Glucose (Auto)(UA) NEGATIVE, Urine Ketones (Auto) NEGATIVE, Urine Blood 1+H, Urine Nitrite NEGATIVE, Urine Bilirubin NEGATIVE, Urine Urobilinogen 0.2, Urine Leukocyte Esterase (Auto) NEGATIVE, Urine WBC (Auto) 1, Urine RBC (Auto) 1, Urine Hyaline Casts (Auto) 0, Urine Bacteria (Auto) 1+H, Urine Squamous Epithelial Cells 0, Urine Sperm (Auto) 11/22/19 06:40: Nucleated Red Blood Cells % (auto) 0.0, Immature Platelet Fraction 7.0, Prothrombin Time 11.8, Prothromb Time International Ratio 0.89, Activated Partial Thromboplast Time 24.7L, Anion Gap 7L, Glomerular Filtration Rate > 60.0, Calcium Level 8.8, Iron Level 54L, Total Bilirubin 1.0, Aspartate Amino Transf (AST/SGOT) 341H, Alanine Aminotransferase (ALT/SGPT) 160H, Alkaline Phosphatase 59, Total Protein 6.7, Albumin 3.8, Albumin/Globulin Ratio 1.31 CBC/BMP Laboratory Tests 11/22/19 06:40 Microbiology Microbiology 11/20/19 Respiratory Virus Panel (PCR) ([facility]) - Final, Complete 11/20/19 Blood Culture - Preliminary, Resulted No Growth after 48 hours. All Specime... 11/20/19 Blood Culture - Preliminary, Resulted No Growth after 48 hours. All Specime... JU BROWN MD November 22, 2019 14:03
[2019-11-22 14:32] LABS: MAGNESIUM LEVEL 1.6 MG/DL (1.8-2.4)
[2019-11-22] MEDS ORDERED: MAG SULF 1GM/100ML (MAG RUN) 1 GM in IV 1 EA IV ONE ×2 (15:00→17:00)
[2019-11-22] MEDS ORDERED: POTASSIUM CHLORIDE 10 MEQ SR TABLET PO ONE (15:00)
[2019-11-22 20:00] VITALS: BP 136/93
[2019-11-22] MEDS: FERROUS SULFATE 325MG TAB PO SCH (20:39)
[2019-11-22 22:00] VITALS: BP 135/94
[2019-11-23 00:06] LABS: CK 1 (BB) 0 % (0); CK 2 (MB) 0 % (0-3); CK 3 (MM) 100 % (97-100); CK MACRO I PERCENT 0 % (Not Observed); CK MACRO II PERCENT 0 % (Not Observed); CK TOTAL 19366 U/L (49-439)
[2019-11-23 02:03] VITALS: BP 123/88
[2019-11-23 06:00] VITALS: BP 117/82
[2019-11-23] MEDS: D5W/0.45% SODIUM CHLORIDE 1,000 ML IV SCH ×2 (06:38→16:56)
[2019-11-23 06:43] LABS: HEMATOCRIT 34.2 % (42.0-52.0); HEMOGLOBIN 11.6 g/dl (13.5-17.5); MEAN CORPUSCULAR HGB CONC 33.9 g/dl (32.0-36.5); MEAN CORPUSCULAR VOLUME 94.5 fl (80.0-96.0); PLATELET COUNT, AUTOMATED 124 10^3/uL (150-450); RED BLOOD COUNT 3.62 10^6/uL (4.30-6.10); WHITE BLOOD COUNT 4.9 10^3/uL (4.0-10.0)
[2019-11-23 06:59] LABS: ALBUMIN 3.6 GM/DL (3.2-5.2); ALT/SGPT 160 U/L (12-78); BILIRUBIN,TOTAL 0.7 MG/DL (0.2-1.0); BLOOD UREA NITROGEN 4 MG/DL (7-18); CALCIUM LEVEL 8.7 MG/DL (8.5-10.1); CARBON DIOXIDE LEVEL 26 MEQ/L (21-32); CHLORIDE LEVEL 109 MEQ/L (98-107); CREATININE FOR GFR 0.54 MG/DL (0.70-1.30); GLOMERULAR FILTRATION RATE > 60.0 (>56); GLUCOSE, FASTING 88 MG/DL (70-100); MAGNESIUM LEVEL 1.9 MG/DL (1.8-2.4); POTASSIUM SERUM 3.6 MEQ/L (3.5-5.1); SODIUM LEVEL 141 MEQ/L (136-145)
[2019-11-23 08:37] VITALS: BP 133/86
[2019-11-23] MEDS: FERROUS SULFATE 325MG TAB PO SCH ×2 (08:39→20:11)
[2019-11-23] MEDS: MULTIVITAMINS/MINERALS THERAP 1 TAB PO SCH (08:39)
[2019-11-23] MEDS: FOLIC ACID 1 MG TAB PO SCH (08:39)
--- NOTE | 2019-11-23 08:57 | IPNPDOC ---
Date Seen The patient was seen on 11/23/19. Progress Note SUBJECTIVE: Patient complained of hematuria yesterday, now resolved, repeat UA. Suggest improvement of rhabdomyolysis, no JOSE. Ultrasound bladder reveals no acute processes, no masses, renal ultrasound reveals hepatic steatosis, non- shadowing hyperechoic focus on the inferior left kidney measuring 8 x 7 x 10 mm, suggestive of angiomyolipoma. Labs today reveal hypokalemia, will replace, reevaluate, magnesium level, pending folate and B12 levels, iron levels low, will start ferrous sulfate, hemoglobin and hematocrit improved, hepatitis panel pending. During his hospital stay, he had a trial of Serax with minimal improvement, will increase frequency of CIWA protocol. Patient did well yesterday, however, overnight he became very agitated and was unable to sleep. Hypokalemia, resolved, patient's CK-MB elevated, unclear etiology, will continue IV fluids, repeat, nutrition consult. OBJECTIVE PHYSICAL EXAMINATION: VITAL SIGNS: Please see below. GENERAL: slender appearing male , able to speak in full sentences, + tremors HEENT: Normocephalic, atraumatic, dry mucous membranes NECK: Supple CARDIOVASCULAR EXAMINATION: S1, S2 RESPIRATORY EXAMINATION: CTAB ABDOMINAL EXAMINATION: +BS, nontender to palpation, negative Aguilar's EXTREMITIES: no edema SKIN: No rash NEUROLOGICAL EXAMINATION: Awake PSYCHIATRIC EXAMINATION: Calm and cooperative, appropriate affect Pt is a 49yoM with PMH of ET [place] disorder presents with alcohol intoxication and rhabdomyolysis, deconditioning. Inpatient telemetry. #Alcohol abuse disorder with ETOH w/d and hyperbilirubinemia, and elevated transaminase, likely EtOH and etiology, increase frequency of CIWA protocol, follow-up hepatitis panel. -Nutrition consult #Rhabdomyolysis without JOSE, likely secondary to EtOH consumption, continue IVF, anion gap, likely secondary to rhabdo, resolved. Unclear why repeat CK-MB elevated despite IV fluids and clinical improvement, we'll repeat CK-levels. Con tinue IVF, PT. #Tachycardia, secondary to dehydration, resolved, will continue IV fluids. #Thrombocytopenia, likely related to EtOH consumption, improved #Anemia: Iron deficient, will follow-up on B12 and folate levels, H&H improving, will start iron supplements #Hypoglycemia: D5 NS maintenance fluids, stable #Hypomagnesemia, resolved, replace prn, monitor, likely contributing to hypokalemia, replace #Mood disorders: Resume home Lexapro, patient is agreeable to taking medication, denies SI, HI #Urinary incontinence: We'll review home meds and continue home meds #Insomnia: Reports taking trazodone when necessary, we'll resume home medication -Insomnia, likely related to alcohol withdrawal, consider pharmacological medication when necessary overnight for insomnia #DVT ppx: SCD Full code Dispo: Anticipated DC on 11/24/2019 to rehabilitation versus home PT 32 minutes spent on pt care VS, I&O, 24H, Fishbone Vital Signs/I&O Vital Signs Date Time Temp Pulse Resp B/P (MAP) Pulse Ox O2 Delivery O2 Flow Rate FiO2 11/23/19 08:37 90 133/86 11/23/19 06:00 97.9 18 97 Room Air I&O- Last 24 Hours up to 6 AM 11/23/19 06:00 Intake Total 4910 ml Output Total 3925 ml Balance 985 ml Laboratory Data 24H LABS Laboratory Tests 2 11/23/19 06:24: Nucleated Red Blood Cells % (auto) 0.0, Anion Gap 6L, Glomerular Filtration Rate > 60.0, Calcium Level 8.7, Magnesium Level 1.9, Total Bilirubin 0.7, Aspartate Amino Transf (AST/SGOT) 256H, Alanine Aminotransferase (ALT/SGPT) 160H, Alkaline Phosphatase 59, Total Protein 7.0, Albumin 3.6, Albumin/Globulin Ratio 1.06 CBC/BMP Laboratory Tests 11/23/19 06:24 Microbiology Microbiology 11/20/19 Respiratory Virus Panel (PCR) ([facility]) - Final, Complete 11/20/19 Blood Culture - Preliminary, Resulted No Growth after 48 hours. All Specime... 11/20/19 Blood Culture - Preliminary, Resulted No Growth after 48 hours. All Specime... JU BROWN MD November 23, 2019 08:57
[2019-11-23] MEDS ORDERED: traZODone 25MG PER 1/2 TABLET PO PRN (09:00)
[2019-11-23 14:00] VITALS: BP 131/87
[2019-11-23] MEDS: CitaloPRAM (CeleXA) 20 MG TAB PO SCH (20:11)
[2019-11-23 20:12] VITALS: BP 133/90
[2019-11-23 22:00] VITALS: BP 124/77
[2019-11-24] VITALS (8 sets, daily range): BP systolic 127–143; BP diastolic 82–97
[2019-11-24] MEDS: D5W/0.45% SODIUM CHLORIDE 1,000 ML IV SCH ×3 (02:18→12:18)
[2019-11-24 06:12] LABS: HEMATOCRIT 33.6 % (42.0-52.0); HEMOGLOBIN 11.6 g/dl (13.5-17.5); MEAN CORPUSCULAR HEMOGLOBIN 32.9 pg (27.0-33.0); MEAN CORPUSCULAR HGB CONC 34.5 g/dl (32.0-36.5); MEAN CORPUSCULAR VOLUME 95.2 fl (80.0-96.0); PLATELET COUNT, AUTOMATED 190 10^3/uL (150-450); RED BLOOD COUNT 3.53 10^6/uL (4.30-6.10); WHITE BLOOD COUNT 4.2 10^3/uL (4.0-10.0)
[2019-11-24 06:38] LABS: ALBUMIN 3.5 GM/DL (3.2-5.2); ALT/SGPT 179 U/L (12-78); BILIRUBIN,TOTAL 0.6 MG/DL (0.2-1.0); BLOOD UREA NITROGEN 6 MG/DL (7-18); CALCIUM LEVEL 8.6 MG/DL (8.5-10.1); CARBON DIOXIDE LEVEL 27 MEQ/L (21-32); CHLORIDE LEVEL 107 MEQ/L (98-107); CREATININE FOR GFR 0.52 MG/DL (0.70-1.30); GLOMERULAR FILTRATION RATE > 60.0 (>56); GLUCOSE, FASTING 87 MG/DL (70-100); POTASSIUM SERUM 3.8 MEQ/L (3.5-5.1); SODIUM LEVEL 141 MEQ/L (136-145); TOTAL PROTEIN 6.4 GM/DL (6.4-8.2)
--- NOTE | 2019-11-24 08:38 | IPNPDOC ---
Date Seen The patient was seen on 11/24/19. Progress Note SUBJECTIVE: Patient complained of hematuria yesterday, now resolved, repeat UA. Suggest improvement of rhabdomyolysis, no JOSE. Ultrasound bladder reveals no acute processes, no masses, renal ultrasound reveals hepatic steatosis, non- shadowing hyperechoic focus on the inferior left kidney measuring 8 x 7 x 10 mm, suggestive of angiomyolipoma. Labs today reveal hypokalemia, will replace, reevaluate, magnesium level, pending folate and B12 levels, iron levels low, will start ferrous sulfate, hemoglobin and hematocrit improved, hepatitis panel pending. During his hospital stay, he had a trial of Serax with minimal improvement, will increase frequency of CIWA protocol. O/n on 11/23/19, became very agitated and was unable to sleep. Hypokalemia, resolved, patient's CK-MB elevated, unclear etiology, will continue IV fluids, repeat, nutrition consult. Patient slept well overnight, still has tremors, will follow-up with PT evjoaquim. OBJECTIVE PHYSICAL EXAMINATION: VITAL SIGNS: Please see below. GENERAL: slender appearing male , able to speak in full sentences, + tremors HEENT: Normocephalic, atraumatic, dry mucous membranes NECK: Supple CARDIOVASCULAR EXAMINATION: S1, S2 RESPIRATORY EXAMINATION: CTAB ABDOMINAL EXAMINATION: +BS, nontender to palpation, negative Aguilar's EXTREMITIES: no edema SKIN: No rash NEUROLOGICAL EXAMINATION: Awake PSYCHIATRIC EXAMINATION: Calm and cooperative, appropriate affect Pt is a 49yoM with PMH of ET [place] disorder presents with alcohol intoxication and rhabdomyolysis, deconditioning. Inpatient telemetry. #Alcohol abuse disorder with ETOH w/d and hyperbilirubinemia, and elevated transaminase, likely EtOH and etiology, increase frequency of CIWA protocol, follow-up hepatitis panel. -Nutrition consult #Rhabdomyolysis without JOSE, likely secondary to EtOH consumption, continue IVF, anion gap, likely secondary to rhabdo, resolved. Unclear why repeat CK-MB elevated despite IV fluids and clinical improvement, we'll repeat CK-levels. Continue IVF, PT. - Pending repeat CK #Anemia: Iron deficient, will follow-up on B12 and folate levels, H&H stable, will start iron supplements #Tachycardia, secondary to dehydration, resolved, will continue IV fluids. #Thrombocytopenia, likely related to EtOH consumption, resolved #Hypoglycemia: D5 NS maintenance fluids, stable #Hypomagnesemia, resolved, replace prn, monitor, likely contributing to hypokalemia, replace #Mood disorders: Resume home Lexapro, patient is agreeable to taking medication, denies SI, HI #Urinary incontinence: We'll review home meds and continue home meds #Insomnia: Reports taking trazodone when necessary, we'll resume home medication -Insomnia, likely related to alcohol withdrawal, consider pharmacological medication when necessary overnight for insomnia #DVT ppx: SCD Full code Dispo: Anticipated DC on 11/24/19 vs 11/25/2019 to rehabilitation versus home PT VS, I&O, 24H, Fishbone Vital Signs/I&O Vital Signs Date Time Temp Pulse Resp B/P (MAP) Pulse Ox O2 Delivery O2 Flow Rate FiO2 11/24/19 06:00 98.6 81 17 127/83 (98) 98 Room Air I&O- Last 24 Hours up to 6 AM 11/24/19 06:00 Intake Total 2950 ml Output Total 5200 ml Balance -2250 ml Laboratory Data 24H LABS Laboratory Tests 2 11/23/19 10:05: 11/24/19 05:53: Nucleated Red Blood Cells % (auto) 0.0, Anion Gap 7L, Glomerular Filtration Rate > 60.0, Calcium Level 8.6, Total Bilirubin 0.6, Aspartate Amino Transf (AST/SGOT) 248H, Alanine Aminotransferase (ALT/SGPT) 179H, Alkaline Phosphatase 54, Total Protein 6.4, Albumin 3.5, Albumin/Globulin Ratio 1.21 CBC/BMP Laboratory Tests 11/24/19 05:53 Microbiology Microbiology 11/20/19 Respiratory Virus Panel (PCR) ([facility]) - Final, Complete 11/20/19 Blood Culture - Preliminary, Resulted No Growth after 72 hours. All specime... 11/20/19 Blood Culture - Preliminary, Resulted No Growth after 72 hours. All specime... JU BROWN MD November 24, 2019 08:38
[2019-11-24] MEDS: FOLIC ACID 1 MG TAB PO SCH (08:44)
[2019-11-24] MEDS: FERROUS SULFATE 325MG TAB PO SCH ×2 (08:44→20:27)
[2019-11-24] MEDS: MULTIVITAMINS/MINERALS THERAP 1 TAB PO SCH (08:44)
[2019-11-24 10:52] LABS: VITAMIN B12 LEVEL 751 PG/ML (247-911)
[2019-11-24 10:53] LABS: FOLATE 12.5 NG/ML (>5.4)
[2019-11-24 11:03] LABS: HEPATITIS B SURFACE ANTIGEN NEGATIVE (NEGATIVE)
[2019-11-24 11:31] LABS: HEPATITIS B CORE ANTIBODY IGM NEGATIVE (NEGATIVE)
[2019-11-24 11:32] LABS: HEPATITIS A ANTIBODY IGM NEGATIVE (NEGATIVE)
[2019-11-24] MEDS: CitaloPRAM (CeleXA) 20 MG TAB PO SCH (20:27)
[2019-11-25] MEDS: D5W/0.45% SODIUM CHLORIDE 1,000 ML IV SCH ×2 (01:13→08:56)
[2019-11-25 05:50] LABS: HEMATOCRIT 33.6 % (42.0-52.0); HEMOGLOBIN 11.4 g/dl (13.5-17.5); MEAN CORPUSCULAR HEMOGLOBIN 32.5 pg (27.0-33.0); MEAN CORPUSCULAR HGB CONC 33.9 g/dl (32.0-36.5); MEAN CORPUSCULAR VOLUME 95.7 fl (80.0-96.0); RED BLOOD COUNT 3.51 10^6/uL (4.30-6.10); WHITE BLOOD COUNT 4.8 10^3/uL (4.0-10.0)
[2019-11-25 05:59] LABS: PLATELET COUNT, AUTOMATED 306 10^3/uL (150-450)
[2019-11-25 06:00] VITALS: BP 142/80
[2019-11-25 06:05] LABS: ALBUMIN 3.7 GM/DL (3.2-5.2); ALT/SGPT 175 U/L (12-78); BILIRUBIN,TOTAL 0.5 MG/DL (0.2-1.0); BLOOD UREA NITROGEN 7 MG/DL (7-18); CALCIUM LEVEL 8.5 MG/DL (8.5-10.1); CARBON DIOXIDE LEVEL 28 MEQ/L (21-32); CHLORIDE LEVEL 105 MEQ/L (98-107); CREATININE FOR GFR 0.52 MG/DL (0.70-1.30); GLOMERULAR FILTRATION RATE > 60.0 (>56); GLUCOSE, FASTING 90 MG/DL (70-100); POTASSIUM SERUM 3.8 MEQ/L (3.5-5.1); SODIUM LEVEL 139 MEQ/L (136-145); TOTAL PROTEIN 6.6 GM/DL (6.4-8.2)
[2019-11-25] MEDS: FERROUS SULFATE 325MG TAB PO SCH (08:56)
[2019-11-25] MEDS: FOLIC ACID 1 MG TAB PO SCH (08:56)
[2019-11-25] MEDS: MULTIVITAMINS/MINERALS THERAP 1 TAB PO SCH (08:56)
[2019-11-25] MEDS ORDERED: ESCITALOPRAM OXALATE 10 MG TAB (LEXAPRO) PO SCH (09:00)
[2019-11-25] MEDS ORDERED: CELE20TA PO (09:25)
[2019-11-25] MEDS ORDERED: VITMTA PO (09:25)
[2019-11-25] MEDS ORDERED: FERR325T18 PO (09:25)
[2019-11-25] MEDS ORDERED: FOLI1TAB11 PO (09:25)
--- NOTE | 2019-11-25 09:27 | DS.PDOC ---
Discharge Summary General Date of Admission November 20, 2019 at 12:12 Date of Discharge 11/25/19 Discharge Summary PROCEDURES PERFORMED DURING STAY: None. ADMITTING DIAGNOSES: 1. ETOH w/d, rhabdo. DISCHARGE DIAGNOSES: 1. ETOH w/d, rhabdo. COMPLICATIONS/CHIEF COMPLAINT: Alcohol Withdrawal Hyponatremia Rhabdomyolysis. HISTORY OF PRESENT ILLNESS/HOSPITAL COURSE: Patient complained of hematuria yest erday, now resolved, repeat UA. Suggest improvement of rhabdomyolysis, no JOSE. Ultrasound bladder reveals no acute processes, no masses, renal ultrasound reveals hepatic steatosis, non-shadowing hyperechoic focus on the inferior left kidney measuring 8 x 7 x 10 mm, suggestive of angiomyolipoma. Labs today reveal hypokalemia, will replace, reevaluate, magnesium level, pending folate and B12 levels, iron levels low, will start ferrous sulfate, hemoglobin and hematocrit improved, hepatitis panel pending. During his hospital stay, he had a trial of Serax with minimal improvement, will increase frequency of CIWA protocol. O/n on 11/23/19, became very agitated and was unable to sleep. Hypokalemia, resolved, patient's CK-MB elevated, unclear etiology, will continue IV fluids, repeat, nutrition consult. Throughout patient's hospital stay, symptoms improved, lab levels also improved, thrombocytopenia, resolved. Upon PT eval, patient is cleared to be DC home. 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 SSRI was not previously started due to rhabdo. Educated patient to take daily with follow-up with PCP in 1 week. All questions were answered. OBJECTIVE PHYSICAL EXAMINATION: VITAL SIGNS: Please see below. GENERAL: slender appearing male , able to speak in full sentences, + tremors, improved HEENT: Normocephalic, atraumatic, dry mucous membranes NECK: Supple CARDIOVASCULAR EXAMINATION: S1, S2 RESPIRATORY EXAMINATION: CTAB ABDOMINAL EXAMINATION: +BS, nontender to palpation, negative Aguilar's EXTREMITIES: no edema SKIN: No rash NEUROLOGICAL EXAMINATION: Awake PSYCHIATRIC EXAMINATION: Calm and cooperative, appropriate affect 35 minutes were spent on dc plan Vital Signs/I&Os Vital Signs Date Time Temp Pulse Resp B/P (MAP) Pulse Ox O2 Delivery O2 Flow Rate FiO2 11/25/19 06:00 98.1 76 20 142/80 (100) 99 11/24/19 14:00 Room Air I&O- Last 24 Hours up to 6 AM 11/25/19 05:59 Intake Total 2200 ml Output Total 1275 ml Balance 925 ml Laboratory Data Labs 24H Laboratory Tests 2 11/25/19 05:30: Nucleated Red Blood Cells % (auto) 0.0, Anion Gap 6L, Glomerular Filtration Rate > 60.0, Calcium Level 8.5, Total Bilirubin 0.5, Aspartate Amino Transf (AST/SGOT) 220H, Alanine Aminotransferase (ALT/SGPT) 175H, Alkaline Phosphatase 54, Total Protein 6.6, Albumin 3.7, Albumin/Globulin Ratio 1.28 CBC/BMP Laboratory Tests 11/25/19 05:30 Microbiology Microbiology 11/20/19 Respiratory Virus Panel (PCR) ([facility]) - Final, Complete 11/20/19 Blood Culture - Final, Complete NO GROWTH AFTER 5 DAYS 11/20/19 Blood Culture - Preliminary, Resulted No Growth after 72 hours. All specime... Discharge Medications Scheduled Citalopram Hydrobromide (Celexa) 20 Mg Tablet, 20 MG PO QPM Ferrous Sulfate (Ferrous Sulfate) 325 Mg Tablet, 325 MG PO BID Folic Acid (Folic Acid) 1 Mg Tablet, 1 MG PO DAILY Multivitamins (Thera M Plus Tablet) 1 Each Tablet, 1 TAB PO DAILY Allergies Coded Allergies: No Known Allergies (Unverified , 11/20/19) JU BROWN MD November 25, 2019 09:22
[2019-11-26 10:19] LABS: CK 1 (BB) 0 % (0); CK 2 (MB) 0 % (0-3); CK 3 (MM) 100 % (97-100); CK MACRO I PERCENT 0 % (Not Observed); CK MACRO II PERCENT 0 % (Not Observed); CK TOTAL 5813 U/L (49-439)
== END 2019-11-25 13:31 | disposition home or self-care (01) | DRG 351 ==
LOC: EDBD 08:29 → M ED 08:29 → M ED INP 12:12 → ENRESERV 12:43 → M MSPAV 13:30
PROVIDERS: ADMIT Family Medicine; ATTEND Family Medicine
DX: M62.82 Rhabdomyolysis (principal); D69.6 Thrombocytopenia, unspecified; E87.1 Hypo-osmolality and hyponatremia; E83.42 Hypomagnesemia; E86.0 Dehydration; F10.10 Alcohol abuse, uncomplicated; D50.9 Iron deficiency anemia, unspecified; E16.2 Hypoglycemia, unspecified; E87.6 Hypokalemia; E80.6 Other disorders of bilirubin metabolism; Z79.899 Other long term (current) drug therapy; G47.00 Insomnia, unspecified; F41.9 Anxiety disorder, unspecified; F39 Unspecified mood [affective] disorder

== ENCOUNTER → 2019-12-23 | Outpatient (REF) | payer OTHER ==
[~2019-12-23] MED LIST changes: +CELE20TA PO; +FERR325T18 PO; +VITMTA PO
[2019-12-23 18:29] LABS: APPEARANCE, URINE CLEAR (CLEAR); BACTERIA, URINE AUTO NEGATIVE (NEGATIVE); BILIRUBIN, URINE AUTO NEGATIVE (NEGATIVE); BLOOD, URINE BLOOD NEGATIVE (NEGATIVE); COLOR, URINE YELLOW (YELLOW); GLUCOSE, URINE (UA) AUTO NEGATIVE (NEGATIVE); KETONE, URINE AUTO NEGATIVE (NEGATIVE); LEUKOCYTE ESTERASE, URINE AUTO NEGATIVE (NEGATIVE); MUCUS, URINE SMALL (NEGATIVE); NITRITE, URINE AUTO NEGATIVE (NEGATIVE); PROTEIN, URINE AUTO NEGATIVE (NEGATIVE); RBC, URINE AUTO 0 /HPF (0-3); SQUAMOUS EPITHELIAL CELL UR AU 0 /HPF (0-6); UROBILINOGEN, URINE AUTO 0.2 mg/dL (0.0-2.0); WBC, URINE AUTO 0 /HPF (0-3)
== END ==
LOC: M SMT 17:17
PROVIDERS: ATTEND Nurse Practitioner Women's Health
DX: R31.0 Gross hematuria (principal)

== ENCOUNTER → 2019-12-29 | Outpatient (REF) | payer OTHER ==
[2019-12-29 17:37] LABS: BLOOD UREA NITROGEN 9 MG/DL (7-18); CALCIUM LEVEL 9.5 MG/DL (8.5-10.1); CARBON DIOXIDE LEVEL 28 MEQ/L (21-32); CHLORIDE LEVEL 105 MEQ/L (98-107); CREATININE FOR GFR 0.74 MG/DL (0.70-1.30); GLOMERULAR FILTRATION RATE > 60.0 (>56); GLUCOSE, FASTING 75 MG/DL (70-100); SODIUM LEVEL 140 MEQ/L (136-145)
== END ==
LOC: M LABSMT 13:04 → M SFHCADAM 13:04
PROVIDERS: ATTEND Nurse Practitioner Women's Health
DX: R31.0 Gross hematuria (principal)

== ENCOUNTER 2020-06-02 16:25 | Inpatient (IN) | payer OTHER ==
[~2020-06-02] VITALS: Ht 177.8 cm; Wt 66.0 kg
[2020-06-02] MEDS ORDERED: NS 1,000 ML IV SCH ×2 (17:51→21:15)
--- NOTE | 2020-06-02 17:58 | REP ---
INDICATION: Altered Mental Status. COMPARISON: 11/20/2019 FINDINGS: The technique utilized in obtaining the radiograph has magnified the cardiac silhouette and accentuated the interstitial markings. The superior mediastinal structures are midline. The cardiac silhouette is unremarkable in size, shape, and position. The diaphragmatic surfaces of the lungs are regular, and the costophrenic angles are clear. The pulmonary green are clear. The imaged osseous structures are intact. IMPRESSION: There is no acute cardiopulmonary disease. <Electronically signed by Sushil Best > 06/02/20 [id number]
--- NOTE | 2020-06-02 18:27 | REPVR ---
PROCEDURE INFORMATION: Exam: CT Head Without Contrast Exam date and time: 06/02/2020 5:49 PM Age: 49 years old Clinical indication: Altered mental status/memory loss TECHNIQUE: Imaging protocol: Computed tomography of the head without contrast. Radiation optimization: All CT scans at this facility use at least one of these dose optimization techniques: automated exposure control; mA and/or kV adjustment per patient size (includes targeted exams where dose is matched to clinical indication); or iterative reconstruction. COMPARISON: CT Head without contrast 11/20/2019 10:59 AM FINDINGS: Brain: No acute intracerebral abnormality or injury. No acute infarct or intracerebral bleed. Moderate cerebral and cerebellar atrophy, suggestive of Dilantin medication versus alcohol abuse, in view of the patient's young age group. No significant interval change since the previous head CT from 11/20/2019. [facility] Early CT Score (ASPECTS score) = 10. Cerebral ventricles: No ventriculomegaly. Bones/joints: Unremarkable. No acute fracture. Paranasal sinuses: Visualized sinuses are unremarkable. No fluid levels. Mastoid air cells: Visualized mastoid air cells are well aerated. Soft tissues: Unremarkable. IMPRESSION: 1. No acute intracerebral abnormality or injury. No acute infarct or intracerebral bleed. 2. Moderate cerebral and cerebellar atrophy, suggestive of Dilantin medication versus alcohol abuse, in view of the patient's young age group. No significant interval change since the previous head CT from 11/20/2019. 3. [facility] Early CT Score (ASPECTS score) = 10. Electronically signed by: Francisco J Kelley On 06/02/2020 18:27:45 PM
[2020-06-02] MEDS ORDERED: THIAMINE 100 MG TAB PO ONE (18:45)
[2020-06-02] MEDS ORDERED: MULTIVITAMINS/MINERALS THERAP 1 TAB PO ONE (18:45)
[2020-06-02 19:13] LABS: BASO % 0.2 % (0.0-1.0); HEMATOCRIT 44.6 % (42.0-52.0); HEMOGLOBIN 14.9 g/dl (13.5-17.5); LYMPH # 0.6 10^3/uL (1.5-5.0); LYMPH % 4.7 % (24.0-44.0); MEAN CORPUSCULAR HEMOGLOBIN 31.6 pg (27.0-33.0); MEAN CORPUSCULAR HGB CONC 33.4 g/dl (32.0-36.5); MEAN CORPUSCULAR VOLUME 94.7 fl (80.0-96.0); MONO # 0.4 10^3/uL (0.0-0.8); MONO % 3.2 % (0.0-5.0); NEUTROPHILS # 12.1 10^3/uL (1.5-8.5); NEUTROPHILS % 90.8 % (36.0-66.0); RED BLOOD COUNT 4.71 10^6/uL (4.30-6.10); WHITE BLOOD COUNT 13.3 10^3/uL (4.0-10.0)
[2020-06-02 19:19] LABS: ACETAMINOPHEN LEVEL < 2.0 UG/ML (10.0-30.0); ALT/SGPT 78 U/L (12-78); BILIRUBIN,DIRECT 0.2 MG/DL (0.0-0.2); BILIRUBIN,TOTAL 0.9 MG/DL (0.2-1.0); BLOOD UREA NITROGEN 13 MG/DL (7-18); CALCIUM LEVEL 8.3 MG/DL (8.5-10.1); CARBON DIOXIDE LEVEL 20 MEQ/L (21-32); CHLORIDE LEVEL 97 MEQ/L (98-107); CPK CREATINE PHOSPHOKINASE 265 U/L (39-308); CREATININE FOR GFR 0.57 MG/DL (0.70-1.30); ETHYL ALCOHOL (ETHANOL) 0.374 % (0.000-0.010); GLOMERULAR FILTRATION RATE > 60.0 (>56); GLUCOSE, FASTING 47 MG/DL (70-100); MB/CK RELATIVE INDEX 0.75 (< OR =4); POTASSIUM SERUM 4.6 MEQ/L (3.5-5.1); SODIUM LEVEL 137 MEQ/L (136-145); THYROID STIMULATING HORMONE 0.255 uIU/ML (0.358-3.740); TOTAL PROTEIN 7.4 GM/DL (6.4-8.2); TROPONIN I < 0.02 NG/ML (< 0.10)
[2020-06-02 19:39] LABS: PLATELET COUNT, AUTOMATED 96 10^3/uL (150-450)
[2020-06-02 20:37] LABS: SALICYLATE LEVEL 2.1 MG/DL (5.0-30.0)
[2020-06-02 20:50] LABS: ABG BASE EXCESS -7.9 (-2.0-2.0); ABG HCO3 16.7 MEQ/L (22.0-26.0); ABG O2 SATURATION 97.1 % (95.0-99.0); ABG PARTIAL PRESSURE O2 103.4 mmHg (75.0-100.0); ABG STANDARD HCO3 18.1 MEQ/L (22.0-26.0); ABG TOTAL CO2 17.7 MEQ/L (22.0-29.0); ABG pH (ARTERIAL) 7.336 UNITS (7.350-7.450)
[2020-06-02 21:15] LABS: ACETONE/KETONE > 46.00 MG/DL (<2.81)
[2020-06-02] MEDS ORDERED: MAALOX 30 ML SUSP *UDC PO PRN (21:15)
[2020-06-02] MEDS ORDERED: MOM 30ML SUSPENSION UDC PO PRN (21:15)
--- NOTE | 2020-06-02 21:19 | HPEPDOC ---
[facility] Medical History & Physical Date of Admission Jun 02, 2020 Date of Service: Jun 02, 2020 Primary Care Physician: Maribel Espinosa Attending Physician: MANUEL MARCIAL MD History and Physical TIME OF SERVICE: 1110pm CHIEF COMPLAINT: binge drinking HISTORY OF PRESENT ILLNESS: The patient was unable to provide any meaningful history, the majority of the history was obtained from ER records and . This 49 yr old male's has been concerned about her and called for a well check on him. The patient reports binge drinking but is unable to quantify the amount. He reported that he thinks his last drink was several days ago and was surprised that his serum ETHO is still elevated. He admits to drinking vodka and lying in bed all day watching TV. He added that he can't walk, has been feeling weak and can't remember the last time that he walked on his own, and has not eaten for the last 3 days. He denied having any acute stressors in his life and admits to suffering with depression. He was on Lexapro but forgot to take the medication for at leas t 1 week. He admits to having a [place] and tremors, but denies having visual or auditory hallucinations or sensation of things crawling on him. He denied having f/c/n/v/ or diarrhea. He reports having seizures even when he drinks, admits to having liver cirrhosis and reports occasionally having acute abdominal pain. He denies ever vomiting blood or having blood in his stools or ascites. REVIEW OF SYSTEMS: 12 point review of systems negative except as listed in HPI PAST MEDICAL/ SURGICAL HISTORY: Alcoholic Liver cirrhosis hx of Rhabdomyolysis hx of alcoholic hepatitis Seizure disorder ? vs DTs Hyperthyroidism Depression Angiomyolipoma Thumb surgery Tonsillectomy SOCIAL HISTORY: + alcohol abuse - tobacco quit or recreational drugs FAMILY HISTORY: n/a ALLERGIES: Please see below. HOME MEDICATIONS: Please see below. PHYSICAL EXAMINATION: Vital Signs Date Time Temp Pulse Resp B/P (MAP) Pulse Ox O2 Delivery O2 Flow Rate FiO2 06/02/20 16:33 98.7 120 16 126/68 97 Room Air GEN: well-nourished / well developed/ anxious INTEGUMENT: not flushed/ not jaundice / slightly diaphoretic HEENT: lips acyanotic /mucus membranes dry CVS: tachycardic /NMRG /no lower extremity edema LUNGS: able to speak full sentences without stopping to take a breath / no coughing / lungs are clear to auscultation bilaterally on room air ABDOMEN: Contour (flat) / soft & not tender with palpation MSK/EXTREMITIES: NCAT NEURO: CN 2-12 are grossly intact / speech is not dysarthric / tremulous PSYCH: alert and oriented / able to understand and follow simple commands LABORATORY DATA: 06/02/20 18:41 Laboratory Tests 2 06/02/20 18:41: Immature Granulocyte % (Auto) 1.1, Neutrophils (%) (Auto) 90.8H, Lymphocytes (%) (Auto) 4.7L, Monocytes (%) (Auto) 3.2, Eosinophils (%) (Auto) 0.0, Basophils (%) (Auto) 0.2, Neutrophils # (Auto) 12.1H, Lymphocytes # (Auto) 0.6L, Monocytes # (Auto) 0.4, Eosinophils # (Auto) 0.0, Basophils # (Auto) 0.0, Nucleated [place] d Cells % (auto) 0.0, Immature Platelet Fraction 4.7, Anion Gap 20H, Glomerular Filtration Rate > 60.0, Calcium Level 8.3L, Total Bilirubin 0.9, Direct Bilirubin 0.2, Aspartate Amino Transf (AST/SGOT) 104H, Alanine Aminotransferase (ALT/SGPT) 78, Alkaline Phosphatase 94, Total Creatine Kinase 265, Creatine Kinase MB 2.0, Creatine Kinase MB Relative Index 0.75, Troponin I < 0.02, Total Protein 7.4, Albumin 4.0, Albumin/Globulin Ratio 1.2, Thyroid Stimulating Hormone (TSH) 0.255L, Salicylates Level 2.1L, Acetaminophen Level < 2.0L, Ethyl Alcohol Level 0.374H, B-Hydroxybutyrate > 46.00H 06/02/20 20:28: Bedside Glucose (Misc Panel) 82 06/02/20 20:40: Blood Gas Bicarbonate Standard 18.1L, Arterial Blood pH 7.336L, Arterial Blood Partial Pressure CO2 32.0L, Arterial Blood Partial Pressure O2 103.4H, Arterial Blood Total CO2 17.7L, Arterial Blood HCO3 16.7L, Arterial Blood Base Excess - 7.9L, Arterial Blood Oxygen Saturation 97.1 IMAGING: Chest xray "There is no acute cardiopulmonary disease." CT head "IMPRESSION: 1. No acute intracerebral abnormality or injury. No acute infarct or intracerebral bleed. 2. Moderate cerebral and cerebellar atrophy, suggestive of Dilantin medication versus alcohol abuse, in view of the patient's young age group. No significant interval change since the previous head CT from 11/20/2019. 3. [place] Stroke Program Early CT Score (ASPECTS score) = 10." MICROBIOLOGY: Please see below. ASSESSMENT: a 49-year-old with a history of alcohol abuse, alcoholic liver cirrhosis, depression, possible seizure disorder and hypothyroidism will be admitted for management of alcoholic intoxication, hypoglycemia, dehydration and evaluation SIRS and debility. PLAN: 1. SIRS Possibly reactive due to w/d vs 2/2 occult infection SIRS criteria: HR >90 / WBC >12 QSofa score = 1 = not high risk Plan: admit to PCU / telemetry / f/u lactic acid, UA, blood cx and respiratory panel / no abx pending confirmation of infection / Acetaminophen PRN for fever / target MAP at of least 65 to 70 / f/u Is and Os with target UOP of at least 0.5 ml/kg/H / f/u FSBS w target serum glucose 140-180 while acutely ill 2. Hypoglycemia Likely 2/2 a combo of alcoholic and starvation ketoacidosis vs occult infection He received Thiamine in the ER Plan: D5NS / FSBS Q4H / neurochecks Q4h 3. Alcohol Intoxication Serum ETHO still elevated Plan: seizure precautions / fall precautions / Ativan per CIWA protocol/ Thi amine 100mg daily, Folic acid 1mg daily, MVI / IVF /he declined social work consult for referral to AA or other local support group 4. Metabolic Acidosis likely 2/2 a combo of alcoholic and starvation ketoacidosis He admits to not eating for several days and the BHB is + Plan: IVF, thiamine and folic acid / f/u pancx to r/o infection 4. Tachycardia Likely 2/2 dehydration Trop wnl Per EKG showed sinus tachy Plan: telemetry, IVF / f/u Mag / day time team may consider repeat Trop and EKG if tachycardia doesn't resolve w IVF 5. Alcoholic Liver Cirrhosis AST slightly elevated New MELD Score = 6 points Hep B and C neg in November Plan: f/u w PCP for liver US & Hep B vaccine 6. Cerebral Atrophy Suspect he has dementia / lapses in his memory due to alcohol abuse Plan: f/u B1 to screen for Wernicke Korsakoff 7. Debility Pt says he can't walk? Not sure if this is due to alcoholic cerebellar degeneration or alcoholic myopathy or alcoholic neuropathy Plan: f/u B12 / PT eval / if the patient remains weak the day time team may consider Neuro consult to discuss the possible cause and if the pt need MRI of brain & spine +/- EMGs 8.Depression Plan: Escitalopram DVT PROPHYLAXIS: lovenox DISPOSITION: home vs placement after more than 2 midnight's stay / PFS consult has been placed Laboratory Data CBC/BMP Laboratory Tests 06/02/20 18:41 Home Medications Scheduled Escitalopram Oxalate (Lexapro) 20 Mg Tablet, 20 MG PO DAILY Tamsulosin HCl (Flomax) 0.4 Mg Capsule, 0.8 MG PO DAILY Miscellaneous Medications [Patient Comment] PATIENT UNAVAILABLE. MED REC COMPLETED VIA EXTERNAL MED HISTORY AND PHARMACY. Allergies Coded Allergies: No Known Allergies (Unverified , 11/20/19) A-FIB/CHADSVASC A-FIB History Current/History of A-Fib/PAF?: No Current PO Anticoag Therapy: No MANUEL MARCIAL MD Jun 02, 2020 21:19
[2020-06-02 21:25] LABS: INR 0.89; PROTHROMBIN TIME 12.2 SECONDS (12.5-14.3)
[2020-06-02] MEDS ORDERED: FLOM0.4C39 PO (21:50)
[2020-06-02] MEDS ORDERED: LEXA1TAB2 PO (21:50)
[2020-06-02] MEDS ORDERED: PATIENT COMMENT (21:53)
[2020-06-02 22:30] LABS: AMPHETAMINES LEVEL URINE NEGATIVE (NEGATIVE); BARBITURATES URINE NEGATIVE (NEGATIVE); BENZODIAZEPINES URINE NEGATIVE (NEGATIVE); CANNABINOIDS URINE NEGATIVE (NEGATIVE); COCAINE METABOLITE URINE NEGATIVE (NEGATIVE); METHADONE URINE NEGATIVE (NEGATIVE); OPIATES URINE NEGATIVE (NEGATIVE); PHENCYCLIDINE URINE NEGATIVE (NEGATIVE)
[2020-06-02] MEDS: LORazepam 2 MG/ML VIAL IV PRN (23:30)
[2020-06-03] VITALS (9 sets, daily range): BP systolic 109–139; BP diastolic 36–84
[2020-06-03] MEDS ORDERED: NS 1,000 ML IV ONE ×3 (01:00→02:30)
[2020-06-03] MEDS ORDERED: D5W/0.9% SODIUM CHLORIDE 1,000 ML IV SCH (03:15)
[2020-06-03 04:23] LABS: HEMATOCRIT 32.5 % (42.0-52.0); MEAN CORPUSCULAR HEMOGLOBIN 31.6 pg (27.0-33.0); MEAN CORPUSCULAR HGB CONC 34.2 g/dl (32.0-36.5); MEAN CORPUSCULAR VOLUME 92.6 fl (80.0-96.0); RED BLOOD COUNT 3.51 10^6/uL (4.30-6.10); WHITE BLOOD COUNT 7.9 10^3/uL (4.0-10.0)
[2020-06-03] MEDS: LORazepam 2 MG/ML VIAL IV PRN (04:32)
[2020-06-03] MEDS: ACETAMINOPHEN TAB 650MG DOSE (2X325MG) PO PRN (04:32)
[2020-06-03 04:37] LABS: HEMOGLOBIN 11.1 g/dl (13.5-17.5)
[2020-06-03 04:54] LABS: ALBUMIN 3.2 GM/DL (3.2-5.2); ALT/SGPT 56 U/L (12-78); BILIRUBIN,TOTAL 0.9 MG/DL (0.2-1.0); BLOOD UREA NITROGEN 10 MG/DL (7-18); CALCIUM LEVEL 8.2 MG/DL (8.5-10.1); CARBON DIOXIDE LEVEL 25 MEQ/L (21-32); CHLORIDE LEVEL 97 MEQ/L (98-107); CREATININE FOR GFR 0.68 MG/DL (0.70-1.30); GLOMERULAR FILTRATION RATE > 60.0 (>56); GLUCOSE, FASTING 161 MG/DL (70-100); MAGNESIUM LEVEL 1.4 MG/DL (1.8-2.4); POTASSIUM SERUM 3.9 MEQ/L (3.5-5.1); SODIUM LEVEL 131 MEQ/L (136-145); TOTAL PROTEIN 6.5 GM/DL (6.4-8.2)
[2020-06-03] MEDS: MAG SULF 1GM/100ML (MAG RUN) 1 GM in IV 1 EA IV SCH ×2 (08:00→09:29)
[2020-06-03] MEDS ORDERED: FLUBLOK(EGG FREE)(QUAD)INFLUENZA VACC 0.5ML SYRINGE 18YRS & OLDER IM ONE (09:00)
[2020-06-03] MEDS: ESCITALOPRAM OXALATE 10 MG TAB (LEXAPRO) PO SCH (09:28)
[2020-06-03] MEDS: THIAMINE 100 MG TAB PO SCH ×2 (09:28→20:00)
[2020-06-03] MEDS: MULTIVITAMINS/MINERALS THERAP 1 TAB PO SCH (09:28)
[2020-06-03] MEDS: OXAZEPAM 15 MG CAP PO SCH ×2 (09:28→12:34)
[2020-06-03] MEDS: NS 1,000 ML IV SCH ×2 (09:29→20:00)
[2020-06-03] MEDS: FOLIC ACID 1 MG TAB PO SCH (09:29)
[2020-06-03] MEDS: ENOXAPARIN 40MG/0.4ML SYRINGE (J1650 PER 10MG) SC SCH (09:29)
--- NOTE | 2020-06-03 13:29 | IPNPDOC ---
Date Seen The patient was seen on 06/03/20. Progress Note SUBJECTIVE: Patient was seen and examined at the bedside this morning. He is very tremulous. He tells me that he has a slight headache and he feels very anxious. He was not able to sleep at night and is scoring moderately high on his CIWA assessments. He denies any chest pain, shortness of breath or abdominal pain at this time. He has also not had any nausea/vomiting or diarrhea. OBJECTIVE PHYSICAL EXAMINATION: VITAL SIGNS: see below GENERAL: laying in bed, in no apparent distress but quite tremorous, conversant in full sentences. No sweating noted HEENT: PERRL, EOMI, Oral mucous membranes are moist without lesions. NECK: No adenopathy is appreciated. No thyromegaly CHEST/LUNGS: Lungs are clear bilaterally without rhonchi, rales, or wheezes. There is no subcutaneous air appreciated. There is no tenderness to the chest wall. HEART: tachycardia with regular rhythm. No murmurs, rubs, or gallops are appreciated. Distal pulses are 2+. No carotid bruits appreciated. ABDOMEN: Soft, nontender, and nondistended. Bowel sounds are positive. No organomegaly is appreciated. No masses are appreciated. There are no peritoneal signs. There is no [place] sign. EXTREMITIES: No peripheral edema. There is no focal long bone tenderness or deformity. SKIN: The patients skin is warm and dry, without rashes or lesions. PSYCHIATRIC: AAO x 3, normal mood, flat affect NEUROLOGIC: The patient has 5/5 strength to the upper and lower extremities bilaterally. No obvious focal deficits LABORATORY DATA, IMAGING STUDIES, MICROBIOLOGY: Please see below. DVT prophylaxis ordered?: Lovenox ASSESSMENT AND PLAN: This is a 49 YO M with history of heavy alcohol abuse who presented after well-check and was found to have been binge drinking at home for several days. He is currently admitted for alcohol intoxication with possible withdrawal and metabolic acidosis likely 2/2 starvation ketoacidosis PROBLEMS: 1. Alcohol intoxication: -Continue CIWA protocol + Ativan -Serax 30mg Q6H added with plan to taper -Continue Thiamine, Folic acid, Multivitamin -Patient is having fevers likely 2/2 withdrawal -Continue seizure precautions 2. Metabolic acidosis likely 2/2 alcoholism vs starvation ketosis: -Initial AB.336/32/103 -CO2 on chemistries improved from 20 to 25 -IV fluids NS 80cc/hr 3. Hyponatremia: Sodium 131 today from 137 -Likely 2/2 fluid status and alcoholism -Pending serum Osm / Urine Na Osm -Patient appears euvolemic on exam 4. History of liver cirrhosis 2/2 EtOH: -Hep C and Hep B were negative 11/2019 -AST elevated at 104, ALT 78. More likely a picture of acute intoxication -No evidence of ascites on examination 5. Hypoglycemia on admission: appears to have resolved -Likely 2/2 ketosis. No signs of infection at this time -Improved to 161 this morning 6. Mood disorder: -Continue Lexapro DISPOSITION: Pending clinical improvement VS, I&O, 24H, Fishbone Vital Signs/I&O Vital Signs Date Time Temp Pulse Resp B/P (MAP) Pulse Ox O2 Delivery O2 Flow Rate FiO2 06/03/20 10:02 99.6 06/03/20 08:00 116 22 112/63 (79) 95 Room Air I&O- Last 24 Hours up to 6 AM 06/03/20 05:59 Intake Total 2300 ml Output Total 300 ml Balance 2000 ml Laboratory Data 24H LABS Laboratory Tests 2 06/02/20 18:41: Immature Granulocyte % (Auto) 1.1, Neutrophils (%) (Auto) 90.8H, Lymphocytes (%) (Auto) 4.7L, Monocytes (%) (Auto) 3.2, Eosinophils (%) (Auto) 0.0, Basophils (%) (Auto) 0.2, Neutrophils # (Auto) 12.1H, Lymphocytes # (Auto) 0.6L, Monocytes # (Auto) 0.4, Eosinophils # (Auto) 0.0, Basophils # (Auto) 0.0, Nucleated Red Blood Cells % (auto) 0.0, Immature Platelet Fraction 4.7, Anion Gap 20H, Glomerular Filtration Rate > 60.0, Calcium Level 8.3L, Total Bilirubin 0.9, Direct Bilirubin 0.2, Aspartate Amino Transf (AST/SGOT) 104H, Alanine Aminotransferase (ALT/SGPT) 78, Alkaline Phosphatase 94, Total Creatine Kinase 265, Creatine Kinase MB 2.0, Creatine Kinase MB Relative Index 0.75, Troponin I < 0.02, Total Protein 7.4, Albumin 4.0, Albumin/Globulin Ratio 1.2, Thyroid Stimulating Hormone (TSH) 0.255L, Salicylates Level 2.1L, Acetaminophen Level < 2.0L, Ethyl Alcohol Level 0.374H, B-Hydroxybutyrate > 46.00H 06/02/20 20:28: Bedside Glucose (Misc Panel) 82 06/02/20 20:40: Blood Gas Bicarbonate Standard 18.1L, Arterial Blood pH 7.336L, Arterial Blood Partial Pressure CO2 32.0L, Arterial Blood Partial Pressure O2 103.4H, Arterial Blood Total CO2 17.7L, Arterial Blood HCO3 16.7L, Arterial Blood Base Excess - 7.9L, Arterial Blood Oxygen Saturation 97.1 06/02/20 21:20: Prothrombin Time 12.2, Prothromb Time International Ratio 0.89 06/02/20 21:55: Urine Color YELLOW, Urine Appearance HAZY, Urine pH 5.0, Urine Specific [place] 1.016, Urine Protein 1+H, Urine Glucose (UA) NEGATIVE, Urine Ketones 2+H, Urine Blood NEGATIVE, Urine Nitrite NEGATIVE, Urine Bilirubin NEGATIVE, Urine Urobilinogen 0.2, Urine Leukocyte Esterase NEGATIVE, Urine WBC (Auto) 0, Urine RBC (Auto) 0, Urine Hyaline Casts (Auto) 3, Urine Bacteria (Auto) NEGATIVE, Urine Squamous Epithelial Cells 0, Urine Mucus (Auto) LARGE, Urine Sperm (Auto) , Urine Opiates Screen NEGATIVE, Urine Methadone Screen NEGATIVE, Urine Barbiturates Screen NEGATIVE, Urine Phencyclidine Screen NEGATIVE, Urine Amphetamines Screen NEGATIVE, Urine Benzodiazepines Screen NEGATIVE, Urine Cocaine Metabolite Screen NEGATIVE, Urine Cannabinoids Screen NEGATIVE 06/03/20 04:12: Nucleated Red Blood Cells % (auto) 0.0, Anion Gap 9, Glomerular Filtration Rate > 60.0, Lactic Acid Level 2.1*H, Calcium Level 8.2L, Magnesium Level 1.4L, Total Bilirubin 0.9, Aspartate Amino Transf (AST/SGOT) 66H, Alanine Aminotransferase (ALT/SGPT) 56, Alkaline Phosphatase 66, Total Protein 6.5, Albumin 3.2, Albumin/Globulin Ratio 1.0 06/03/20 08:47: Lactic Acid Followup at 4 Hours 1.3 CBC/BMP Laboratory Tests 06/02/20 18:41 06/03/20 04:12 Microbiology Microbiology 06/03/20 Blood Culture, Received Pending 06/02/20 Respiratory Virus Panel (PCR) (LUCIANA) - Final, Complete 06/02/20 Blood Culture, Received Pending GME ATTESTATION GME ATTESTATION My faculty preceptor for this patient encounter was physically present during the encounter and was fully available. All aspects of the patient interview, examination, medical decision making process, and medical care plan development were reviewed and approved by the faculty preceptor. The faculty preceptor is aware and concurs with the plan as stated in the body of this note and will attest to such by his/her cosignature. ATTENDING NOTE I, Mynor Hardy, have independently examined this patient and performed my own physical exam, as well as reviewed the documentation and edited where necessary. I have discussed in detail with the resident / student the findings and plan of treatment as documented by the resident / student and edited their note. I agree with their findings and treatment plan and have edited their documentation. I will continue to follow the patient during this hospital stay. PETERSON WATTS MD Jun 03, 2020 11:32 MYNOR HARDY MD Jun 03, 2020 15:30
[2020-06-03 16:31] LABS: BLOOD UREA NITROGEN 9 MG/DL (7-18); CALCIUM LEVEL 8.5 MG/DL (8.5-10.1); CARBON DIOXIDE LEVEL 29 MEQ/L (21-32); CHLORIDE LEVEL 100 MEQ/L (98-107); CREATININE FOR GFR 0.53 MG/DL (0.70-1.30); GLOMERULAR FILTRATION RATE > 60.0 (>56); GLUCOSE, FASTING 119 MG/DL (70-100); MAGNESIUM LEVEL 1.8 MG/DL (1.8-2.4); POTASSIUM SERUM 3.3 MEQ/L (3.5-5.1); SODIUM LEVEL 134 MEQ/L (136-145)
[2020-06-03] MEDS ORDERED: POTASSIUM CHLORIDE 10 MEQ SR TABLET PO ONE (17:45)
[2020-06-03] MEDS ORDERED: OXAZEPAM 15 MG CAP PO SCH (22:00)
[2020-06-04] VITALS (9 sets, daily range): BP systolic 109–133; BP diastolic 68–84
[2020-06-04] MEDS: ACETAMINOPHEN TAB 650MG DOSE (2X325MG) PO PRN (03:56)
[2020-06-04 05:29] LABS: BASO % 0.1 % (0.0-1.0); EOS % 0.3 % (0.0-3.0); HEMATOCRIT 33.2 % (42.0-52.0); HEMOGLOBIN 11.4 g/dl (13.5-17.5); LYMPH # 0.8 10^3/uL (1.5-5.0); LYMPH % 10.9 % (24.0-44.0); MEAN CORPUSCULAR HEMOGLOBIN 32.2 pg (27.0-33.0); MEAN CORPUSCULAR HGB CONC 34.3 g/dl (32.0-36.5); MEAN CORPUSCULAR VOLUME 93.8 fl (80.0-96.0); MONO # 0.7 10^3/uL (0.0-0.8); MONO % 8.9 % (0.0-5.0); NEUTROPHILS # 5.8 10^3/uL (1.5-8.5); NEUTROPHILS % 79.2 % (36.0-66.0); RED BLOOD COUNT 3.54 10^6/uL (4.30-6.10); WHITE BLOOD COUNT 7.3 10^3/uL (4.0-10.0)
[2020-06-04 05:43] LABS: PLATELET COUNT, AUTOMATED 53 10^3/uL (150-450)
[2020-06-04 05:54] LABS: ALBUMIN 3.1 GM/DL (3.2-5.2); ALT/SGPT 43 U/L (12-78); BLOOD UREA NITROGEN 7 MG/DL (7-18); CALCIUM LEVEL 8.6 MG/DL (8.5-10.1); CARBON DIOXIDE LEVEL 26 MEQ/L (21-32); CHLORIDE LEVEL 102 MEQ/L (98-107); CREATININE FOR GFR 0.51 MG/DL (0.70-1.30); GLOMERULAR FILTRATION RATE > 60.0 (>56); GLUCOSE, FASTING 82 MG/DL (70-100); POTASSIUM SERUM 3.5 MEQ/L (3.5-5.1); SODIUM LEVEL 134 MEQ/L (136-145); TOTAL PROTEIN 6.5 GM/DL (6.4-8.2)
[2020-06-04] MEDS ORDERED: POTASSIUM CHLORIDE 10 MEQ SR TABLET PO ONE (08:00)
[2020-06-04] MEDS: OXAZEPAM 10 MG CAP PO SCH ×2 (09:00→19:41)
[2020-06-04] MEDS: NS 1,000 ML IV SCH (09:30)
[2020-06-04] MEDS: FOLIC ACID 1 MG TAB PO SCH (09:58)
[2020-06-04] MEDS: THIAMINE 100 MG TAB PO SCH ×2 (09:59→22:02)
[2020-06-04] MEDS: MULTIVITAMINS/MINERALS THERAP 1 TAB PO SCH (09:59)
[2020-06-04] MEDS: ESCITALOPRAM OXALATE 10 MG TAB (LEXAPRO) PO SCH (09:59)
[2020-06-04] MEDS: ENOXAPARIN 40MG/0.4ML SYRINGE (J1650 PER 10MG) SC SCH (10:10)
--- NOTE | 2020-06-04 10:57 | IPNPDOC ---
Text Note Date of Service The patient was seen on 06/04/20. NOTE SUBJECTIVE: Patient was seen and examined at the bedside this morning. He is slightly tremulous. He reports absence of headache this morning and less anxiety than the previous day. He was not able to sleep at night and is scoring low on CIWA assessments (6 points). He denies any chest pain, shortness of breath, dizziness, lightheadedness, sweats, and chills. He reports better appetite today as he was able to eat his entire breakfast. Afebrile overnight. Patient reports that he has been to rehab on 4 separate occasions but has been unsuccessful. He feels good for a while, forgets about his alcoholism, then binge drinks. He was counselled on attending a clinic program for follow-up to keep him on track and he is agreeable to receiving information. He is worried about his drinking, his dog and strained relationships. Patient also very concerned about not walking yet since hes been in the hospital. He would like to see physical therapy and be sure he feels comfortable walking before he leaves the hospital. He became very anxious when possible discharge was discussed. OBJECTIVE: VITAL SIGNS: See Below. GENERAL: Laying in bed, no respiratory distress. Slightly tremulous. No sweating noted. HEENT: Sclera anicteric, PERRL, EOM intact, moist oral mucus membranes NECK: Supple. No lymphadenopathy appreciated. CHEST/LUNGS: Lungs are clear to auscultation in all field. No rhonchi, wheezing or rales appreciated. No tenderness to chest wall. HEART: S1S2 normal. RRR. No murmurs, rubs or gallops appreciated. ABDOMEN: soft, nontender and nondistended abdomen. Bowel sounds present in all 4 quadrants. No masses appreciated. EXTREMITIES: No peripheral edema. SKIN: warm, dry. No rashes, wounds, and lesions. PSYCHIATRIC: AAO x3, normal mood. Slightly anxious. NEUROLOGIC: 5/5 strength in upper and lower extremities bilaterally. No obvious focal deficits. ASSESSMENT AND PLAN: This is a 49 y/o male with a hx of heavy alcohol abuse, alcohol liver cirrhosis, alcohol hepatitis and hyperthyroidism. He was found to have been binge drinking at home for several days and is currently admitted for alcohol intoxication with possible withdrawal and metabolic acidosis likely secondary to starvation ketoacidosis. # Alcohol Intoxication - Tapering Serax to 10 mg BID today. - Continue CIWA protocol - Continue Thiamine, Folic acid and multivitamin - Patient is afebrile for the last 24 hours - Continue seizure protocol. # Thrombocytopenia - Plt count 53. - Likely due to folic acid deficiency from heavy alcohol use vs cirrhosis - Receiving folic acid 1 mg PO daily # Possible Bacteremia - Two blood cultures positive for gram positive cocci in pairs and clusters - Repeat blood cultures - No clinical evidence of infection, no antibiotics at this time # Metabolic acidosis likely secondary to alcoholism vs starvation ketosis - CO2 improved to 26. - No evidence of current metabolic acidosis. # Hyponatremia - Sodium 134 today from 131. - Serum Osmolality low = 272 mOsm/kg - Urine Na Osmolality pending - Patient appears euvolemic on exam # History of liver cirrhosis secondary to alcoholism, compensated - Hep C and Hep B were negative 11/2019 - AST slightly elevated 40. ALT normal 43. Both improvement from previous values. - No evidence of ascites or other decompensations on examination. # Hypoglycemia on admission, resolved - Likely secondary to ketosis. No signs of infection at this time. # Mood disorder - Continue Lexapro 20 mg PO daily. DVT PROPHYLAXIS: Lovenox 40 mg daily DISPOSITION: pending clinical improvement, PT eval and tx VS,Fishbone, I+O VS, Fishbone, I+O Laboratory Tests 06/03/20 15:58 06/04/20 05:02 Vital Signs Date Time Temp Pulse Resp B/P (MAP) Pulse Ox O2 Delivery O2 Flow Rate FiO2 06/04/20 08:00 98.6 78 18 96 Room Air 06/04/20 06:00 109/70 I&O- Last 24 Hours up to 6 AM 06/04/20 06:00 Intake Total 2100 ml Output Total 1100 ml Balance 1000 ml GME ATTESTATION GME ATTESTATION My faculty preceptor for this patient encounter was physically present during the encounter and was fully available. All aspects of the patient interview, examination, medical decision making process, and medical care plan development were reviewed and approved by the faculty preceptor. The faculty preceptor is aware and concurs with the plan as stated in the body of this note and will attest to such by his/her cosignature. ATTENDING NOTE I, Mynor Hardy, have independently examined this patient and performed my own physical exam, as well as reviewed the documentation and edited where necessary. I have discussed in detail with the resident / student the findings and plan of treatment as documented by the resident / student and edited their note. I agree with their findings and treatment plan and have edited their documentation. I will continue to follow the patient during this hospital stay. ROBERTO CARLOS ENCARNACION D.O. Jun 04, 2020 10:57 MYNOR HARDY MD Jun 04, 2020 18:46
[2020-06-04] MEDS ORDERED: SLF 3 ML SYR IV PRN (11:45)
[2020-06-04] MEDS: SLF 3 ML SYR IV SCH ×2 (12:42→22:02)
--- NOTE | 2020-06-04 21:27 | ECGEPIP ---
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
[2020-06-05] VITALS (7 sets, daily range): BP systolic 115–134; BP diastolic 78–86
[2020-06-05] MEDS: LORazepam 2 MG/ML VIAL IV PRN ×3 (00:11→21:17)
[2020-06-05] MEDS: SLF 3 ML SYR IV SCH ×2 (03:01→16:33)
[2020-06-05 04:45] LABS: HEMATOCRIT 35.8 % (42.0-52.0); MEAN CORPUSCULAR HEMOGLOBIN 31.5 pg (27.0-33.0); MEAN CORPUSCULAR HGB CONC 33.5 g/dl (32.0-36.5); RED BLOOD COUNT 3.81 10^6/uL (4.30-6.10); WHITE BLOOD COUNT 9.9 10^3/uL (4.0-10.0)
[2020-06-05 05:04] LABS: ALBUMIN 3.4 GM/DL (3.2-5.2); ALT/SGPT 40 U/L (12-78); BILIRUBIN,TOTAL 0.9 MG/DL (0.2-1.0); BLOOD UREA NITROGEN 4 MG/DL (7-18); CALCIUM LEVEL 9.1 MG/DL (8.5-10.1); CARBON DIOXIDE LEVEL 26 MEQ/L (21-32); CHLORIDE LEVEL 101 MEQ/L (98-107); CREATININE FOR GFR 0.66 MG/DL (0.70-1.30); GLOMERULAR FILTRATION RATE > 60.0 (>56); GLUCOSE, FASTING 134 MG/DL (70-100); POTASSIUM SERUM 3.5 MEQ/L (3.5-5.1); SODIUM LEVEL 135 MEQ/L (136-145); TOTAL PROTEIN 6.8 GM/DL (6.4-8.2)
[2020-06-05 05:15] LABS: PLATELET COUNT, AUTOMATED 63 10^3/uL (150-450)
[2020-06-05 05:18] LABS: ATYPICAL LYMPH 1 % (0-5); LYMPHOCYTES 13 % (16-44); MONOCYTES 5 % (0-5); NEUTROPHILS 75 % (28-66)
[2020-06-05 05:19] LABS: PLATELET ESTIMATE DECREASED (NORMAL)
[2020-06-05] MEDS: OXAZEPAM 10 MG CAP PO SCH ×4 (05:50→21:17)
[2020-06-05] MEDS: FOLIC ACID 1 MG TAB PO SCH (09:18)
[2020-06-05] MEDS: ESCITALOPRAM OXALATE 10 MG TAB (LEXAPRO) PO SCH (09:19)
[2020-06-05] MEDS: MULTIVITAMINS/MINERALS THERAP 1 TAB PO SCH (09:19)
[2020-06-05] MEDS: THIAMINE 100 MG TAB PO SCH ×2 (09:19→21:16)
[2020-06-05] MEDS: ENOXAPARIN 40MG/0.4ML SYRINGE (J1650 PER 10MG) SC SCH (09:19)
--- NOTE | 2020-06-05 10:44 | IPNPDOC ---
Text Note Date of Service The patient was seen on 06/05/20. NOTE SUBJECTIVE: Patient seen and examined at bedside. He states his symptoms were worsened this morning with more anxiety and tremors. No fevers overnight. He states he continues to feel very weak and shaky when trying to stand or walk. CIWA score was up to 13 early this morning. OBJECTIVE: VITAL SIGNS: See Below. GENERAL: Alert, comfortable, in no acute distress HEENT: Normocephalic, atraumatic, PERRLA, EOMI, moist mucous membranes NECK: Supple, trachea midline, no lymphadenopathy CARDIOVASCULAR: Regular rate and rhythm, normal S1 and S2. No murmurs, rubs, or gallops RESPIRATORY: Clear to auscultation bilaterally with equal air entry bilaterally. No wheezing, rhonchi, or rales. ABDOMEN: Soft, nontender, nondistended, bowel sounds present, no masses or hepatosplenomegaly appreciated EXTREMITIES: No cyanosis or edema. Pulses 2+/4 in bilateral upper and lower extremities SKIN: [place], warm, dry NEUROLOGIC: Alert and oriented x3 to person, place and time. No focal deficits appreciated PSYCHIATRIC: Mood and affect appropriate ASSESSMENT AND PLAN: This is a 49 y/o male with a hx of heavy alcohol abuse, a lcohol liver cirrhosis, alcohol hepatitis and hyperthyroidism. He was found to have been binge drinking at home for several days and is currently admitted for alcohol intoxication with possible withdrawal and metabolic acidosis likely secondary to starvation ketoacidosis. # Alcohol withdrawal - CIWA score up to 13 this morning - Increased Serax to 10 mg TID today due to worsening symptoms - Continue CIWA protocol - Continue Thiamine, Folic acid and multivitamin - Patient is afebrile for the last 24 hours - Continue seizure protocol. # Weakness - Likely due to above and deconditioning. - PT eval and treatment # Thrombocytopenia - Plt count slightly improved at 63. - Likely due to folic acid deficiency from heavy alcohol use vs cirrhosis - Receiving folic acid 1 mg PO daily # Positive blood cultures, suspect contamination - Two blood cultures positive, one for staph capitis and one for staph epidermidis - Repeat blood cultures x2 negative at 24 hours - No clinical evidence of infection, no antibiotics at this time # Metabolic acidosis likely secondary to alcoholism vs starvation ketosis - CO2 improved, stable at 26. - No evidence of current metabolic acidosis. # Hyponatremia, improved - Sodium stable at 135 - Serum Osmolality low = 272 mOsm/kg - Urine Na Osmolality pending - Patient appears euvolemic on exam # History of liver cirrhosis secondary to alcoholism, compensated - Hep C and Hep B were negative 11/2019 - AST slightly elevated 40. ALT normal 43. Both improvement from previous values. - No evidence of ascites or other decompensations on examination. # Hypoglycemia on admission, resolved - Likely secondary to starvation with ketosis. No signs of infection at this time. # Mood disorder - Continue Lexapro 20 mg PO daily. DVT PROPHYLAXIS: Lovenox 40 mg daily DISPOSITION: pending clinical improvement, PT eval VS,Fishbone, I+O VS, Fishbone, I+O Laboratory Tests 06/05/20 04:21 Vital Signs Date Time Temp Pulse Resp B/P (MAP) Pulse Ox O2 Delivery O2 Flow Rate FiO2 06/05/20 08:24 91 133/78 06/05/20 08:00 98.8 18 94 Room Air I&O- Last 24 Hours up to 6 AM 06/05/20 06:00 Intake Total 3030 ml Output Total 2225 ml Balance 805 ml GME ATTESTATION GME ATTESTATION My faculty preceptor for this patient encounter was physically present during the encounter and was fully available. All aspects of the patient interview, examination, medical decision making process, and medical care plan development were reviewed and approved by the faculty preceptor. The faculty preceptor is aware and concurs with the plan as stated in the body of this note and will attest to such by his/her cosignature. ATTENDING NOTE I, Mynor Hardy, have independently examined this patient and performed my own physical exam, as well as reviewed the documentation and edited where necessary. I have discussed in detail with the resident / student the findings and plan of treatment as documented by the resident / student and edited their note. I agree with their findings and treatment plan and have edited their documentation. I will continue to follow the patient during this hospital stay. ROBERTO CARLOS ENCARNACION D.O. Jun 05, 2020 10:32 MYNOR HARDY MD Jun 05, 2020 13:50
[2020-06-05] MEDS: ACETAMINOPHEN TAB 650MG DOSE (2X325MG) PO PRN (21:17)
[2020-06-06] VITALS (8 sets, daily range): BP systolic 105–128; BP diastolic 70–82
[2020-06-06] MEDS: SLF 3 ML SYR IV SCH ×4 (00:11→21:16)
[2020-06-06 05:11] LABS: HEMATOCRIT 37.9 % (42.0-52.0); HEMOGLOBIN 12.5 g/dl (13.5-17.5); MEAN CORPUSCULAR HEMOGLOBIN 31.3 pg (27.0-33.0); PLATELET COUNT, AUTOMATED 97 10^3/uL (150-450); RED BLOOD COUNT 3.99 10^6/uL (4.30-6.10); WHITE BLOOD COUNT 10.5 10^3/uL (4.0-10.0)
[2020-06-06 05:18] LABS: ALBUMIN 3.4 GM/DL (3.2-5.2); ALT/SGPT 33 U/L (12-78); BILIRUBIN,TOTAL 0.6 MG/DL (0.2-1.0); BLOOD UREA NITROGEN 7 MG/DL (7-18); CALCIUM LEVEL 8.9 MG/DL (8.5-10.1); CARBON DIOXIDE LEVEL 27 MEQ/L (21-32); CHLORIDE LEVEL 102 MEQ/L (98-107); CREATININE FOR GFR 0.52 MG/DL (0.70-1.30); GLOMERULAR FILTRATION RATE > 60.0 (>56); GLUCOSE, FASTING 82 MG/DL (70-100); POTASSIUM SERUM 3.6 MEQ/L (3.5-5.1); SODIUM LEVEL 135 MEQ/L (136-145); TOTAL PROTEIN 6.7 GM/DL (6.4-8.2)
[2020-06-06 05:29] LABS: ATYPICAL LYMPH 3 % (0-5); EOSINOPHILS 2 % (0-3); LYMPHOCYTES 13 % (16-44); MONOCYTES 16 % (0-5); NEUTROPHILS 66 % (28-66); PLATELET ESTIMATE DECREASED (NORMAL)
[2020-06-06] MEDS: ENOXAPARIN 40MG/0.4ML SYRINGE (J1650 PER 10MG) SC SCH (09:38)
[2020-06-06] MEDS: THIAMINE 100 MG TAB PO SCH ×2 (09:38→21:16)
[2020-06-06] MEDS: ESCITALOPRAM OXALATE 10 MG TAB (LEXAPRO) PO SCH (09:38)
[2020-06-06] MEDS: FOLIC ACID 1 MG TAB PO SCH (09:38)
[2020-06-06] MEDS: MULTIVITAMINS/MINERALS THERAP 1 TAB PO SCH (09:38)
[2020-06-06] MEDS: OXAZEPAM 10 MG CAP PO SCH ×3 (09:38→21:16)
[2020-06-06] MEDS: ACETAMINOPHEN TAB 650MG DOSE (2X325MG) PO PRN ×3 (11:17→21:50)
--- NOTE | 2020-06-06 13:09 | IPNPDOC ---
Text Note Date of Service The patient was seen on 06/06/20. NOTE Subjective: Patient is a 49-year-old male with a PMHx of Alcohol dependence, Alcohol liver cirrhosis, Alcohol hepatitis and hyperthyroidism who presented to the ER intoxicated and reporting possible withdrawal. Patient was admitted to the hospital service for further evaluation and treatment. Patient was seen and examined at the bedside. Currently patient reports that he has been eating his meals. He denies any nausea, vomiting, chest pain, shortness breath or palpitations. Reports that his tremors have had some improvement. Denies any abdominal pain, diarrhea, or urinary discomfort. Continues to work with physical therapy. Objective: Vitals (See below) General: Lying in bed, no acute distress, comfortable, AAOx3 HEENT: NC, AT CVS: +S1S2 Lungs: Fair air entry b/l, no appreciable wheezing, rhonchi or rales Abdomen: Soft, nondistended and nontender Extremities: LE are without any edema, - Calf tenderness Assessment and plan: Alcohol withdrawal - Currently reports improvement in symtoms / tremors - Has experience a low-grade temperature this morning / hemodynamically stable - c/w CIWA protocol - c/w Serax at current dose; will reduce in 24 hours - c/w Thiamine, Folic acid and multivitamin Weakness - likely due to above and deconditioning - c/w Fall precautions - c/w PT and OT Thrombocytopenia - likely 2/2 cirrhosis - No evidence of bleeding - Will continue to monitor Positive blood cultures - likely - Two separate blood cultures positive 06/02 and 06/03, Staph capitis / Staph epidermidis - Blood cultures 06/03: Negative at 48 hours - No clinical evidence of infection - Will hold off on antibiotics at this time s/p Metabolic acidosis - likely 2/2 alcoholism, possibly 2/2 starvation ketosis s/p Hyponatremia History of liver cirrhosis 2/2 alcoholism - Currently is compensated - Physical without any abdominal tenderness or distension - Hep C and Hep B were negative 11/2019 - No evidence of ascites or other decompensations on examination s/p Hypoglycemia - likely 2/2 starvation ketosis - Improving Mood disorder - c/w Escitalopram GI Prophylaxis - Will start Protonix DVT prophylaxis - c/w Lovenox Disposition: - Pending clinical improvement - c/w PT and OT VS,Fishbone, I+O VS, Fishbone, I+O Laboratory Tests 06/06/20 04:19 Vital Signs Date Time Temp Pulse Resp B/P (MAP) Pulse Ox O2 Delivery O2 Flow Rate FiO2 06/06/20 11:05 100.8 107 17 123/81 (95) 96 Room Air I&O- Last 24 Hours up to 6 AM 06/06/20 06:00 Intake Total 1370 ml Output Total 2000 ml Balance -630 ml BERTIN HARDY MD Jun 06, 2020 13:09
[2020-06-06] MEDS: PANTOPRAZOLE 40MG TAB (PROTONIX) PO SCH (16:12)
--- NOTE | 2020-06-06 16:49 | REP ---
INDICATION: Fever COMPARISON: 06/02/2020 TECHNIQUE: Portable AP view of the chest FINDINGS: The mediastinum and cardiac silhouette are stable and within normal limits for portable technique. The lung green are clear without acute consolidation, effusion, or pneumothorax. Skeletal structures are intact. IMPRESSION: No acute cardiopulmonary process appreciated. <Electronically signed by Preet Martínez > 06/06/20 [id number]
[2020-06-06 17:00] LABS: BASO # 0.1 10^3/uL (0.0-0.2); BASO % 0.5 % (0.0-1.0); EOS # 0.1 10^3/uL (0.0-0.5); EOS % 0.5 % (0.0-3.0); HEMATOCRIT 36.6 % (42.0-52.0); HEMOGLOBIN 12.3 g/dl (13.5-17.5); LYMPH # 0.9 10^3/uL (1.5-5.0); LYMPH % 8.2 % (24.0-44.0); MEAN CORPUSCULAR HEMOGLOBIN 31.7 pg (27.0-33.0); MEAN CORPUSCULAR HGB CONC 33.6 g/dl (32.0-36.5); MEAN CORPUSCULAR VOLUME 94.3 fl (80.0-96.0); MONO # 2.4 10^3/uL (0.0-0.8); MONO % 22.2 % (0.0-5.0); NEUTROPHILS # 7.4 10^3/uL (1.5-8.5); PLATELET COUNT, AUTOMATED 127 10^3/uL (150-450); RED BLOOD COUNT 3.88 10^6/uL (4.30-6.10); WHITE BLOOD COUNT 10.9 10^3/uL (4.0-10.0)
[2020-06-06 17:20] LABS: ERYTHROCYTE SEDIMENTATION RATE 60 mm/hr (0-20)
[2020-06-07] VITALS (8 sets, daily range): BP systolic 107–132; BP diastolic 73–88
[2020-06-07] MEDS ORDERED: VANCOMYCIN HCL 500 MG in D5W MINI-BAG PLUS 100 ML IV ONE (03:00)
[2020-06-07 04:06] LABS: BASO # 0.1 10^3/uL (0.0-0.2); BASO % 0.5 % (0.0-1.0); EOS % 0.3 % (0.0-3.0); HEMATOCRIT 40.6 % (42.0-52.0); HEMOGLOBIN 13.6 g/dl (13.5-17.5); LYMPH # 1.1 10^3/uL (1.5-5.0); MEAN CORPUSCULAR HEMOGLOBIN 31.6 pg (27.0-33.0); MEAN CORPUSCULAR HGB CONC 33.5 g/dl (32.0-36.5); MEAN CORPUSCULAR VOLUME 94.4 fl (80.0-96.0); MONO # 3.4 10^3/uL (0.0-0.8); MONO % 27.4 % (0.0-5.0); NEUTROPHILS # 7.8 10^3/uL (1.5-8.5); NEUTROPHILS % 61.8 % (36.0-66.0); PLATELET COUNT, AUTOMATED 172 10^3/uL (150-450); WHITE BLOOD COUNT 12.5 10^3/uL (4.0-10.0)
[2020-06-07 04:30] LABS: BLOOD UREA NITROGEN 10 MG/DL (7-18); CARBON DIOXIDE LEVEL 24 MEQ/L (21-32); CHLORIDE LEVEL 101 MEQ/L (98-107); CREATININE FOR GFR 0.75 MG/DL (0.70-1.30); GLOMERULAR FILTRATION RATE > 60.0 (>56); GLUCOSE, FASTING 113 MG/DL (70-100); POTASSIUM SERUM 3.8 MEQ/L (3.5-5.1); SODIUM LEVEL 133 MEQ/L (136-145)
[2020-06-07 04:31] LABS: CALCIUM LEVEL 9.3 MG/DL (8.5-10.1); MAGNESIUM LEVEL 1.5 MG/DL (1.8-2.4)
[2020-06-07] MEDS: VANCOMYCIN HCL 1,000 MG, VIAL MATE ADAPTER 1 EACH in D5W 250 ML IV SCH ×2 (05:30→12:22)
[2020-06-07] MEDS: SLF 3 ML SYR IV SCH ×4 (06:00→22:26)
[2020-06-07] MEDS: NS 1,000 ML IV SCH ×2 (07:24→19:30)
[2020-06-07] MEDS: MULTIVITAMINS/MINERALS THERAP 1 TAB PO SCH (08:13)
[2020-06-07] MEDS: FOLIC ACID 1 MG TAB PO SCH (08:13)
[2020-06-07] MEDS: ESCITALOPRAM OXALATE 10 MG TAB (LEXAPRO) PO SCH (08:13)
[2020-06-07] MEDS: THIAMINE 100 MG TAB PO SCH ×2 (08:13→22:25)
[2020-06-07] MEDS: ACETAMINOPHEN TAB 650MG DOSE (2X325MG) PO PRN ×2 (08:14→14:56)
[2020-06-07] MEDS: ENOXAPARIN 40MG/0.4ML SYRINGE (J1650 PER 10MG) SC SCH (08:14)
[2020-06-07] MEDS: OXAZEPAM 10 MG CAP PO SCH ×3 (08:14→22:25)
[2020-06-07] MEDS: PANTOPRAZOLE 40MG TAB (PROTONIX) PO SCH (08:14)
[2020-06-07] MEDS: LORazepam 2 MG/ML VIAL IV PRN (08:27)
--- NOTE | 2020-06-07 11:00 | IPNPDOC ---
Text Note Date of Service The patient was seen on 06/07/20. NOTE Subjective: Patient is a 49-year-old male with a PMHx of Alcohol dependence, Alcohol liver cirrhosis, Alcohol hepatitis and hyperthyroidism who presented to the ER intoxicated and reporting possible withdrawal. Patient was admitted to the hospital service for further evaluation and treatment. Patient was seen and examined at the bedside. Patient reports that he has had an uneventful evening, although does report experiencing a fever. Denies any n ausea, vomiting, chest pain, shortness of breath. Has not experience any urinary discomfort or diarrhea. Denies abdominal pain. Patient denies any new joint pain or rashes. Objective: Vitals (See below) General: Lying in bed, appears to be comfortable, AAOx3 HEENT: NC, AT CVS: +S1S2 Lungs: Fair air entry b/l, auscultation is free of rhonchi, rales or wheezing Abdomen: Again, abdomen is soft without distention or tenderness Extremities: LE do not reveal any edema, - Calf tenderness Assessment and plan: Alcohol withdrawal - No significant symptoms of withdrawal noted / denies any visual/auditory hallucinations - Hemodynamically stable, however, has had a fever overnight - c/w CIWA protocol - c/w Thiamine, Folic acid and multivitamin - c/w Serax at current dose; will need rehabilitation on discharge Fever - ROS negative for infectious etiology - PCT pending - Positive blood cultures - likely 22/ contamination; 2 separate blood cultures positive 06/02 and 06/03, Staph capitis / Staph epidermidis - Blood cultures 06/03: Negative at 48 hours - UA negative - CXR Negative - No clinical evidence of infection - Was started on Vancomycin - Will consult infectious disease Weakness - likely due to above and deconditioning - c/w Fall precautions - c/w PT and OT Thrombocytopenia - likely 2/2 cirrhosis - No evidence of bleeding - Will continue to monitor s/p Metabolic acidosis - likely 2/2 alcoholism, possibly 2/2 starvation ketosis s/p Hyponatremia History of liver cirrhosis 2/2 alcoholism - Currently is compensated - Physical without any abdominal tenderness or distension - Hep C and Hep B were negative 11/2019 - No evidence of ascites or other decompensations on examination s/p Hypoglycemia - likely 2/2 starvation ketosis - Improving Mood disorder - c/w Escitalopram GI Prophylaxis - c/w Protonix DVT prophylaxis - c/w Lovenox Disposition: - Pending clinical improvement - c/w PT and OT VS,Fishbone, I+O VS, Fishbone, I+O Laboratory Tests 06/06/20 16:48 06/07/20 03:58 Vital Signs Date Time Temp Pulse Resp B/P (MAP) Pulse Ox O2 Delivery O2 Flow Rate FiO2 06/07/20 08:16 119 132/88 06/07/20 06:00 101.4 17 98 Room Air I&O- Last 24 Hours up to 6 AM 06/07/20 06:00 Intake Total 1760 ml Output Total 1425 ml Balance 335 ml BERTIN HARDY MD Jun 07, 2020 11:00
[2020-06-07] MEDS ORDERED: ISOVUE-370 76% 100ML VIAL As Ordered ONE (15:56)
[2020-06-07] MEDS: MAG SULF 1GM/100ML (MAG RUN) 1 GM in IV 1 EA IV SCH ×2 (16:00→17:38)
[2020-06-07 16:22] LABS: ALBUMIN 3.1 GM/DL (3.2-5.2); ALT/SGPT 25 U/L (12-78); BILIRUBIN,DIRECT 0.2 MG/DL (0.0-0.2); BILIRUBIN,TOTAL 0.5 MG/DL (0.2-1.0); TOTAL PROTEIN 6.7 GM/DL (6.4-8.2)
[2020-06-07 18:19] LABS: FREE T4 1.16 NG/DL (0.76-1.46); MONO REFLEX EBV COMP NEGATIVE (NEGATIVE)
[2020-06-07 18:27] LABS: TOTAL T3 76.6 NG/DL (60.0-181.0)
[2020-06-07 19:06] LABS: HIV 1&2 SCREEN CENTAUR NEGATIVE (NEGATIVE)
[2020-06-08] VITALS (7 sets, daily range): BP systolic 101–134; BP diastolic 63–85
[2020-06-08] MEDS: ONDANSETRON 4MG/2ML VIAL IV SCH ×4 (00:12→16:29)
[2020-06-08] MEDS: SLF 3 ML SYR IV SCH ×3 (05:12→22:00)
[2020-06-08] MEDS ORDERED: CALCIUM CARBONATE 500 MG CHEW U/D PO PRN (06:00)
--- NOTE | 2020-06-08 07:15 | REPVR ---
PROCEDURE INFORMATION: Exam: CT Abdomen And Pelvis With Contrast Exam date and time: 06/07/2020 4:45 PM Age: 49 years old Clinical indication: Fever TECHNIQUE: Imaging protocol: Computed tomography of the abdomen and pelvis with intravenous contrast. Radiation optimization: All CT scans at this facility use at least one of these dose optimization techniques: automated exposure control; mA and/or kV adjustment per patient size (includes targeted exams where dose is matched to clinical indication); or iterative reconstruction. Contrast material: ISOVUE 370; Contrast volume: 100 ml; Contrast route: INTRAVENOUS (IV); COMPARISON: BLADDER (LIMITED PELVIC) US 11/21/2019 9:53 PM FINDINGS: Lungs: Bilateral dependent and linear atelectasis. Liver: Mild hepatomegaly and steatosis. Gallbladder and bile ducts: Normal. No calcified stones. No ductal dilation. Pancreas: Normal. No ductal dilation. Spleen: Normal. No splenomegaly. Adrenal glands: Normal. No mass. Kidneys and ureters: Normal. No hydronephrosis. Stomach and bowel: Marked reactive bowel wall thickening involving terminal ileum with a least partial small bowel obstruction at this level. Reactive bowel wall thickening involving cecum and proximal ascending colon. Appendix: Multiloculated right lower quadrant and pelvic abscess measures approximately 7.4 x 4.5 cm and likely represents sequela of ruptured appendicitis. Intraperitoneal space: Small free fluid in the pelvis. Vasculature: Unremarkable. No abdominal aortic aneurysm. Lymph nodes: Mesenteric edema and lymphadenopathy. Urinary bladder: Unremarkable as visualized. Reproductive: Unremarkable as visualized. Bones/joints: Degenerative disease in the lower lumbar spine. Soft tissues: Small fat containing umbilical hernia. IMPRESSION: Multiloculated right lower quadrant and pelvic abscess measures approximately 7.4 x 4.5 cm and likely represents sequela of ruptured appendicitis. Marked reactive bowel wall thickening involving terminal ileum with a least partial small bowel obstruction at this level. Electronically signed by: Alf Pryor On 06/08/2020 07:14:38 AM
[2020-06-08 07:35] LABS: HEMATOCRIT 39.7 % (42.0-52.0); HEMOGLOBIN 13.3 g/dl (13.5-17.5); MEAN CORPUSCULAR HEMOGLOBIN 32.2 pg (27.0-33.0); MEAN CORPUSCULAR HGB CONC 33.5 g/dl (32.0-36.5); MEAN CORPUSCULAR VOLUME 96.1 fl (80.0-96.0); PLATELET COUNT, AUTOMATED 295 10^3/uL (150-450); RED BLOOD COUNT 4.13 10^6/uL (4.30-6.10); WHITE BLOOD COUNT 7.3 10^3/uL (4.0-10.0)
[2020-06-08] MEDS: ESCITALOPRAM OXALATE 10 MG TAB (LEXAPRO) PO SCH (08:02)
[2020-06-08] MEDS: PIPERACILLIN/TAZOBACTAM SOD 3.375 GM in D5W MINI-BAG PLUS 50 ML IV SCH ×3 (08:02→20:01)
[2020-06-08] MEDS: NS 1,000 ML IV SCH (08:02)
[2020-06-08] MEDS: OXAZEPAM 10 MG CAP PO SCH ×3 (08:02→20:01)
[2020-06-08] MEDS: THIAMINE 100 MG TAB PO SCH ×2 (08:02→20:01)
[2020-06-08] MEDS: MULTIVITAMINS/MINERALS THERAP 1 TAB PO SCH (08:03)
[2020-06-08] MEDS: PANTOPRAZOLE 40MG TAB (PROTONIX) PO SCH (08:03)
[2020-06-08] MEDS: FOLIC ACID 1 MG TAB PO SCH (08:03)
[2020-06-08 08:21] LABS: BLOOD UREA NITROGEN 9 MG/DL (7-18); CARBON DIOXIDE LEVEL 26 MEQ/L (21-32); CHLORIDE LEVEL 102 MEQ/L (98-107); CREATININE FOR GFR 0.65 MG/DL (0.70-1.30); GLOMERULAR FILTRATION RATE > 60.0 (>56); GLUCOSE, FASTING 95 MG/DL (70-100); MAGNESIUM LEVEL 2.1 MG/DL (1.8-2.4); POTASSIUM SERUM 3.8 MEQ/L (3.5-5.1); SODIUM LEVEL 136 MEQ/L (136-145)
[2020-06-08] MEDS: ENOXAPARIN 40MG/0.4ML SYRINGE (J1650 PER 10MG) SC SCH (08:23)
[2020-06-08 08:39] LABS: ATYPICAL LYMPH 2 % (0-5); DOHLE BODIES 2+; LYMPHOCYTES 19 % (16-44); MONOCYTES 39 % (0-5); NEUTROPHILS 22 % (28-66); PLATELET ESTIMATE NORMAL (NORMAL); TOXIC GRANULATION 2+
--- NOTE | 2020-06-08 12:05 | IPNPDOC ---
Text Note Date of Service The patient was seen on 06/08/20. NOTE Subjective: Patient is a 49-year-old male with a PMHx of Alcohol dependence, Alcohol liver cirrhosis, Alcohol hepatitis and hyperthyroidism who presented to the ER intoxicated and reporting possible withdrawal. Patient was admitted to the hospital service for further evaluation and treatment. Patient was seen and examined at the bedside. Patient was seen sitting up in bed. Denies any chest pain, shortness breath or palpitations. Reports some naus ea without vomiting. Denies any abdominal pain, has reported some diarrhea. Denies any urinary discomfort. Objective: Vitals (See below) General: Sitting up in bed, no acute distress, speaking in full sentences, AAOx3 HEENT: NC, AT CVS: +S1S2 Lungs: There appears to be fair air entry bilaterally without any evidence of rhonchi, rales or wheezing Abdomen: Patient's abdomen still remains soft. No rigidity or rebound is noted. No significant tenderness on palpation. Non-distended Extremities: No edema of lower extremities, - Calf tenderness Assessment and plan: Fever - likely 2/2 perforated appendix / abscess collection - Currently patient has reported some nausea and diarrhea. Denies any abdominal pain - Is a cold and does not reveal acute abdomen - PCT slightly elevated - Positive blood cultures - likely 22/ contamination; 2 separate blood cultures positive 06/02 and 06/03, Staph capitis / Staph epidermidis - Blood cultures 06/03: Negative at 72 hours - UA negative - CXR Negative - CT abdomen / pelvis 06/07: Multiloculated right lower quadrant and pelvic abscess measures approximately 7.4 x 4.5 cm and likely represents sequela of ruptured appendicitis. Marked reactive bowel wall thickening involving terminal ileum with a least partial small bowel obstruction at this level. - Will start Zosyn (Day #1) - ID on consult - Discussed case with general surgery, Dr. Davidson; will be on consultation; plan for CT guided drainage with IR / NPO status / NG tube Alcohol withdrawal - No significant symptoms of withdrawal noted / denies any visual/auditory hallucinations - Hemodynamically stable, however, has had a fever overnight - c/w CIWA protocol - c/w Thiamine, Folic acid and multivitamin - c/w Serax at current dose - Patient will likely require additional rehabilitation Weakness - likely due to above and deconditioning - c/w Fall precautions - c/w PT and OT s/p Thrombocytopenia - likely 2/2 cirrhosis - No evidence of bleeding - Improving s/p Metabolic acidosis - likely 2/2 alcoholism, possibly 2/2 starvation ketosis s/p Hyponatremia History of liver cirrhosis 2/2 alcoholism - Currently is compensated - Physical without any abdominal tenderness or distension - Hep C and Hep B were negative 11/2019 - No evidence of ascites or other decompensations on examination s/p Hypoglycemia - likely 2/2 starvation ketosis - Improving Mood disorder - c/w Escitalopram GI Prophylaxis - c/w Protonix DVT prophylaxis - c/w Lovenox Disposition: - Pending clinical improvement - c/w PT and OT - Surgical consult VS,Kal[place]e, I+O VS, Alyse, I+O Laboratory Tests 06/08/20 06:49 Vital Signs Date Time Temp Pulse Resp B/P (MAP) Pulse Ox O2 Delivery O2 Flow Rate FiO2 06/08/20 11:30 101.3 89 20 131/84 (100) 98 Room Air I&O- Last 24 Hours up to 6 AM 06/08/20 06:00 Intake Total 2400 ml Output Total 1675 ml Balance 725 ml BERTIN HARDY MD Jun 08, 2020 12:05
--- NOTE | 2020-06-08 12:38 | ECHO ---
DATE OF PROCEDURE: 06/07/2020 Age: 49 Gender: M Height: 178 cm Weight: 66 kg REFERRING PHYSICIAN: Dr. Mynor Rivero INDICATION: Fever MEASUREMENTS: IVS 0.9 LV 4.9 LVPW 0.9 LA 3.3 Aorta 3.2 RV 3.2 IVC 1.2 Mitral E wave velocity is 48; A wave 51 E prime septal 9.5 E prime lateral 9.8 FINDINGS: This study is of acceptable technical quality. The patient is in sinus rhythm. Left ventricle is normal size and systolic function with estimated LVEF 60-65%. No segmental wall motion abnormalities are appreciated. Right ventricle as well appears to be normal size and systolic function. Both atria are normal. Aortic, tricuspid and pulmonic valves appear normal. There is an echo density attached to anterior mitral leaflet that most likely represents loose cord, much less likely vegetation; otherwise, mobility of mitral leaflet is intact. No pericardial effusion is noted. Inferior vena cava is normal size. Aortic root is normal. Aortic arch and abdominal aorta were not well seen. Doppler interrogation reveals competent aortic valve. There is trace mitral and trace tricuspid insufficiency. Pulmonic valve is competent as well. Mitral inflow pattern and tissue Doppler imaging of mitral annulus reveals likely normal diastolic function even though the E and A wave are of approximately the same velocity. CONCLUSIONS: 1. Study is of acceptable technical quality, underlying sinus rhythm. 2. Normal left ventricle size and systolic function, normal diastolic function. 3. No significant valvular disease. 4. An echodensity attached to anterior mitral leaflet most likely representing loose cord, much less likely vegetation. 5. Normal central venous pressure. COMMENT: If very high clinical suspicion for bacterial endocarditis is present then transesophageal echocardiogram will provide better resolution and better visualization of mitral leaflets. [facility]
--- NOTE | 2020-06-08 12:43 | CR ---
INFECTIOUS DISEASE CONSULTATION DATE OF CONSULTATION: 06/07/2020 CONSULTATION REQUESTED BY: Dr. Rivero. REASON FOR CONSULTATION: For evaluation of fever in a patient who was admitted with alcoholism and fever. HISTORY OF PRESENT ILLNESS: Mr. Saavedra is a pleasant 49-year-old gentleman with a history of alcoholism, who was brought in because his was concerned about his binge drinking. The patient did not recall when was his last drink, but he was drinking about a handle of Vodka a day. He was watching a lot of TV and he stated that he could not walk due to his imbalance from drinking. The patient lives alone. He was . He has a 4-year-old child who lives with the mother. The patient suffers from severe depression and had been on Lexapro, but had not been taking medication. The patient was complaining of headache and worsening tremors, but denied any visual or auditory hallucinations. He did not know he had fevers until he came in. He has had no nausea, vomiting or diarrhea. No abdominal pain. On admission, his temperature was about 100, but he has been spiking up to 102.5. On admission, he had two sets of blood cultures that were by 5 hours; one had Staph capitis and the other one had Staphylococcus epidermidis. They were considered contaminant and not treated. Respiratory panel on admission including COVID-19 was negative. On 06/03/2020, another set of blood culture was done and it was no growth after 72 hours. On 06/04/2020, blood culture was no growth after 72 hours and he had two sets of blood cultures done today. He was started on I.V. vancomycin today. PAST MEDICAL HISTORY: Significant for alcoholism, history of depression; patient does not get regular care, history of questionable alcoholic liver cirrhosis and hepatitis, history of hyperthyroidism, depression, angiomyolipoma. PAST SURGICAL HISTORY: Thumb surgery, tonsillectomy. SOCIAL HISTORY: Alcohol use. No tobacco use or recreational drug use. He was , lives alone, he has a 4-year-old,with his ex-. ALLERGIES: No known drug allergies. MEDICATIONS: 1. Pantoprazole 40 mg p.o. daily. 2. Serax 10 mg p.o. t.i.d. 3. Lovenox 40 mg subcutaneously daily. 4. Thiamine 100 mg p.o. b.i.d. 5. Folic acid 1 mg daily. 6. Multivitamin one tablet daily. 7. Lexapro 20 mg p.o. q.h.s. 8. Tylenol 650 mg every 4 hours p.r.n. LABORATORY DATA: White count 12.5, hemoglobin 13.6, hematocrit 40.6, platelets 172,000; which has improved since admission of 53,000. Neutrophils 61%, lymphocytes 9%, monocytes 27%. ESR 60. Sodium 133, potassium 3.8, chloride 101, bicarb 24, BUN 10, creatinine 0.75, glucose 113. Lactic acid 1. Calcium 9.2, magnesium 1.5. Liver profile normal. AST 18, ALT 25, alkaline phosphatase 71. CRP 13.9 and has increased to 17.8. Albumin 3.9. Procalcitonin 0.26. Toxicology: Salicylate and Tylenol level negative. Drug screen negative. Alcohol level was 0.374 and B-hydroxybutyrate more than 46. Lyme serology done in 2019 was negative. On 11/22/2019, Hepatitis A, B and C were negative. Blood cultures 06/03/2020 one out of two negative, 06/05/2020 negative, and 06/07/2020 two sets are pending. IMAGING STUDIES: Chest x-ray from 06/06/2020 portable; no acute process, and 06/02/[address] was [address] negative. Head CT showed no acute intracerebral abnormality, no infarct, moderate cerebellar and cerebral atrophy suggestive of alcohol abuse in patient of this young age. PHYSICAL EXAMINATION: GENERAL: He is a pleasant gentleman in no acute distress. VITALS: Temperature 102.5, pulse 107, respiratory rate 18, blood pressure 130/87, O2 sat 96% on room air. HEENT: Oropharynx is clear with no lesions, no thrush. Fair dentition. NECK: Supple with no stiffness. No adenopathy. HEART: Normal S1, S2. No murmurs appreciated. Tachycardic. LUNGS: Clear. No wheezes, rales or rhonchi. ABDOMEN: Soft, nontender. No hepatosplenomegaly. BACK: No CVA or lumbosacral tenderness. EXTREMITIES: No cyanosis, clubbing or edema. Motor strength 5- bilaterally, but the patient has a significant tremor right leg more than the left leg whenever he contracts his muscles. NEUROLOGIC: Alert and oriented x3, appropriate, answers questions appropriately. Not hallucinating. IMPRESSION: This is a 49-year-old gentleman with a history of alcoholism, alcoholic hepatitis, questionable liver cirrhosis, who was admitted with mental status changes, fevers and significant alcohol intoxication, now has worsening fever. Blood cultures two sets of different species are considered contaminant. Repeat cultures off antibiotics two sets were negative on 06/03/2020 and 06/04/2020. Two more sets were drawn today and I.V. vancomycin started. I do not see any indication for that. Currently, I do not see any localizing sign or symptom or examination for his fever, but I am concerned about his mild headache and his tremors. He also has significant monocytosis, which could suggest reactivation of infectious mononucleosis HIV, although I doubt he has risk factors. He was . PLAN: Suggest obtaining EBV comprehensive profile and [place] screen, HIV testing. CT abdomen and pelvis with contrast has been ordered to rule out ascites with alcoholic liver disease and if present may need drainage or other intraabdominal pathology. Discontinue I.V. vancomycin as 2 Staph species are both contaminant. Schedule echocardiogram to rule out endocarditis. If all workup is negative, may consider obtaining a lumbar puncture to rule out any other central nervous Also would add a free T4 and total T3 as patient has a history of hyperthyroidism. His TSH is 0.255 and this may suggest thyrotoxicosis as his cause of fever and tremors. [facility]
--- NOTE | 2020-06-08 14:49 | CR ---
DATE OF CONSULTATION: 06/08/2020 REASON FOR CONSULTATION: Elevated white count and history of probable recent ruptured appendicitis. BRIEF HISTORY OF PRESENT ILLNESS: Patient was admitted on June 02 because of excessive alcohol. The patient was admitted with an elevated white count and systemic inflammatory response syndrome (SIRS), alcohol intoxication, metabolic acidosis. Patient was admitted and during his hospitalization continued to have some fevers but not complaining of any specific pains or discomforts. Was evaluated with a CT scan of the abdomen and pelvis, which revealed a possible perforated appendicis with abscess development and ileus-looking appearance. The patient states that he had some bowel movements last night and one this morning and has not been on antibiotics until my discussion with the hospitalist, who started him on some antibiotics this morning. There was a brief episode of vancomycin for 24 hours, however, no other antibiotics. He has been eating a regular diet up until last night. MEDICAL HISTORY: 1. History of alcoholic liver cirrhosis. 2. History of rhabdomyolysis. 3. History of alcoholic hepatitis. 4. History of seizure disorders and delirium tremens (DTs). 5. History of hyperthyroidism. 6. History of depression. 7. Angiolipoma. 8. Thumb surgery. 9. Tonsillectomy. 10. History of alcohol abuse. PHYSICAL EXAMINATION: Reveals a 49-year-old male who looks older than stated age. HEENT is unremarkable. NECK: Supple without adenopathy. LUNGS: Clear anteriorly. HEART: Regular. ABDOMEN: Distended, tympanitic. Without guarding, without rebound, without peritoneal signs. EXTREMITIES: Warm, well perfused. IMPRESSION AND PLAN: Patient has evidence of a probable perforated appendicitis, although it is hard to tell at this point if that is the etiology. There are inflammatory changes in the right lower quadrant, pericecal area, but also in the mesentery of the small bowel and even toward the sigmoid colon in this area. The abscess that they are suggesting described is within the mesentery of the small bowel, and I am seeing some fluid around the cecum on the right-hand side, but this does not look like it is amenable to drainage at this time. I discussed this with the radiologists, who agree that there is a significant amount of bowel surrounding the collection, and they would not recommend attempt at drainage at this time. Overall, my recommendation at this point is to make him nothing by mouth, see if we can decompress him a little bit by just making him nothing by mouth, but if he does not decompression overnight we may need an NG tube and may need a followup CT scan. Some of these fluids collections are not always specifically loculated in this area, or at least may be more defined as antibiotics help with treatment of the inflammation outside of the area, and we will see if antibiotics make a big difference for him overnight. Right now, he has no peritoneal signs, no guarding, no rebound. Mostly distention is his major issue, and if he has any nausea or vomiting, I would recommend NG tube decompression. Otherwise, operative intervention for him, unfortunately, given his significant abdominal distention, would be unlikely laparoscopically and may need an open operation. Thus, given these issues, I have discussed our plans with him. He understands and agrees to continue with the current supportive care and more targeted therapy toward the perforated appendicitis. Given his temperature trend, he essentially has had an temperature and an elevated white count since admission, or at least on the first day. Thus, I anticipate this has been going on for some time now, and given that it has not surgery progressed, I do feel at least it is worth a try with antibiotics today and overnight. ANA
[2020-06-09] VITALS (8 sets, daily range): BP systolic 115–128; BP diastolic 75–83
[2020-06-09] MEDS: ONDANSETRON 4MG/2ML VIAL IV SCH ×4 (01:32→17:08)
[2020-06-09] MEDS: NS 1,000 ML IV SCH ×3 (01:32→20:32)
[2020-06-09] MEDS: PIPERACILLIN/TAZOBACTAM SOD 3.375 GM in D5W MINI-BAG PLUS 50 ML IV SCH ×4 (01:33→20:32)
[2020-06-09] MEDS: ACETAMINOPHEN TAB 650MG DOSE (2X325MG) PO PRN ×2 (01:45→10:09)
[2020-06-09] MEDS: SLF 3 ML SYR IV SCH ×3 (05:38→21:31)
[2020-06-09 06:52] LABS: HEMATOCRIT 34.8 % (42.0-52.0); HEMOGLOBIN 11.6 g/dl (13.5-17.5); MEAN CORPUSCULAR HEMOGLOBIN 31.4 pg (27.0-33.0); MEAN CORPUSCULAR HGB CONC 33.3 g/dl (32.0-36.5); MEAN CORPUSCULAR VOLUME 94.3 fl (80.0-96.0); RED BLOOD COUNT 3.69 10^6/uL (4.30-6.10)
[2020-06-09 06:53] LABS: PLATELET COUNT, AUTOMATED 409 10^3/uL (150-450)
[2020-06-09 07:26] LABS: BLOOD UREA NITROGEN 6 MG/DL (7-18); CALCIUM LEVEL 8.6 MG/DL (8.5-10.1); CARBON DIOXIDE LEVEL 25 MEQ/L (21-32); CHLORIDE LEVEL 102 MEQ/L (98-107); GLOMERULAR FILTRATION RATE > 60.0 (>56); GLUCOSE, FASTING 74 MG/DL (70-100); MAGNESIUM LEVEL 1.7 MG/DL (1.8-2.4); POTASSIUM SERUM 3.5 MEQ/L (3.5-5.1); SODIUM LEVEL 136 MEQ/L (136-145)
[2020-06-09 07:49] LABS: ATYPICAL LYMPH 2 % (0-5); BASOPHILS 2 % (0-1); EOSINOPHILS 1 % (0-3); LYMPHOCYTES 17 % (16-44); MONOCYTES 19 % (0-5); NEUTROPHILS 37 % (28-66); PLATELET ESTIMATE NORMAL (NORMAL); TOXIC GRANULATION 1+
[2020-06-09 07:50] LABS: ANISOCYTOSIS 1+
[2020-06-09] MEDS: MULTIVITAMINS/MINERALS THERAP 1 TAB PO SCH (08:03)
[2020-06-09] MEDS: ESCITALOPRAM OXALATE 10 MG TAB (LEXAPRO) PO SCH (08:03)
[2020-06-09] MEDS: PANTOPRAZOLE 40MG TAB (PROTONIX) PO SCH (08:03)
[2020-06-09] MEDS: FOLIC ACID 1 MG TAB PO SCH (08:03)
[2020-06-09] MEDS: THIAMINE 100 MG TAB PO SCH ×2 (08:03→20:32)
[2020-06-09] MEDS: OXAZEPAM 10 MG CAP PO SCH ×3 (08:04→20:32)
[2020-06-09] MEDS: ENOXAPARIN 40MG/0.4ML SYRINGE (J1650 PER 10MG) SC SCH (08:09)
[2020-06-09] MEDS ORDERED: MAG SULF 1GM/100ML (MAG RUN) 1 GM in IV 1 EA IV ONE (09:00)
--- NOTE | 2020-06-09 10:25 | IPNPDOC ---
Text Note Date of Service The patient was seen on 06/09/20. NOTE Subjective: Patient is a 49-year-old male with a PMHx of Alcohol dependence, Alcohol liver cirrhosis, Alcohol hepatitis and hyperthyroidism who presented to the ER intoxicated and reporting possible withdrawal. Patient was admitted to the hospital service for further evaluation and treatment. Patient was seen and examined at the bedside. Patient is sitting up in bed, appears to be anxious. Denies any chest pain, shortness of breath or palpitation s. Denies any nausea, overnight. Has not vomited. Denies any abdominal pain. Has been having bowel movements. Denies any urinary discomfort. Patient has reported that he is very hungry and would like to eat. Objective: Vitals (See below) General: Sitting up in bed, does not appear to be in any distress, AAOx3 HEENT: NC, AT CVS: +S1S2 Lungs: Air entry on auscultation is fair bilaterally without any appreciable wheezing, crackles or rhonchi Abdomen: Again, abdomen is soft without tenderness. Some firmness is appreciated around the suprapubic/right lower quadrant Extremities: Lower extremities are without any edema, - Calf tenderness Assessment and plan: Fever - likely 2/2 perforated appendix / abscess collection - No further episodes of nausea. Reports no abdominal pain - Physical does not reveal any significant tenderness - PCT slightly elevated - Positive blood cultures - likely 2/2 contamination; 2 separate blood cultures positive 06/02 and 06/03, Staph capitis / Staph epidermidis - Blood cultures 06/03: Negative at 5 days - UA negative - CXR Negative - CT abdomen / pelvis 06/07: Multiloculated right lower quadrant and pelvic abscess measures approximately 7.4 x 4.5 cm and likely represents sequela of ruptured appendicitis. Marked reactive bowel wall thickening involving terminal ileum with a least partial small bowel obstruction at this level. - c/w Zosyn (Day #2) - ID on consult - General surgery, Dr. Davidson, on consultation; diet advanced to clears today - will remain on clears for 24 hours - may require repeat imaging in 24 hours Alcohol withdrawal - Patient has not experience any significant tremors this morning - Hemodynamically stable - c/w CIWA protocol - c/w Thiamine, Folic acid and multivitamin - c/w Serax at current dose - Patient will likely require additional rehabilitation Weakness - likely due to above and deconditioning - c/w Fall precautions - c/w PT and OT s/p Thrombocytopenia - likely 2/2 cirrhosis - No evidence of bleeding s/p Metabolic acidosis - likely 2/2 alcoholism, possibly 2/2 starvation ketosis s/p Hyponatremia History of liver cirrhosis 2/2 alcoholism - Currently is compensated - Physical without any abdominal tenderness or distension - Hep C and Hep B were negative 11/2019 - No evidence of ascites or other decompensations on examination s/p Hypoglycemia - likely 2/2 starvation ketosis - Improving Mood disorder - c/w Escitalopram GI Prophylaxis - c/w Protonix DVT prophylaxis - c/w Lovenox Disposition: - Pending clinical improvement - c/w PT and OT VS,Fishbone, I+O VS, Fishbone, I+O Laboratory Tests 06/09/20 05:28 Vital Signs Date Time Temp Pulse Resp B/P (MAP) Pulse Ox O2 Delivery O2 Flow Rate FiO2 06/09/20 10:00 102.0 89 18 125/81 (96) 96 Room Air I&O- Last 24 Hours up to 6 AM 06/09/20 06:00 Intake Total 1270 ml Output Total 950 ml Balance 320 ml BERTIN HARDY MD Jun 09, 2020 10:25
[2020-06-09 13:08] LABS: Lyme Disease IgG/IgM Antibodie <0.91 ISR (0.00-0.90); Lyme Disease IgM Ab Quantitati <0.80 index (0.00-0.79)
[2020-06-09 16:14] LABS: EBV VIRAL CAPSID AG IgM <36.0 U/mL (0.0-35.9)
[2020-06-10] VITALS (8 sets, daily range): BP systolic 120–147; BP diastolic 79–88
[2020-06-10] MEDS: ONDANSETRON 4MG/2ML VIAL IV SCH ×3 (01:00→12:18)
[2020-06-10] MEDS: PIPERACILLIN/TAZOBACTAM SOD 3.375 GM in D5W MINI-BAG PLUS 50 ML IV SCH ×4 (01:00→19:53)
[2020-06-10] MEDS: SLF 3 ML SYR IV SCH ×3 (05:18→19:53)
[2020-06-10 07:13] LABS: HEMATOCRIT 32.1 % (42.0-52.0); HEMOGLOBIN 10.8 g/dl (13.5-17.5); MEAN CORPUSCULAR HEMOGLOBIN 31.2 pg (27.0-33.0); MEAN CORPUSCULAR HGB CONC 33.6 g/dl (32.0-36.5); MEAN CORPUSCULAR VOLUME 92.8 fl (80.0-96.0); PLATELET COUNT, AUTOMATED 516 10^3/uL (150-450); RED BLOOD COUNT 3.46 10^6/uL (4.30-6.10); WHITE BLOOD COUNT 8.4 10^3/uL (4.0-10.0)
[2020-06-10 07:41] LABS: LYMPHOCYTES 19 % (16-44); METAMYELOCYTES 1 % (0-0); MONOCYTES 8 % (0-5); NEUTROPHILS 59 % (28-66); PLATELET ESTIMATE INCREASED (NORMAL)
[2020-06-10 07:42] LABS: BLOOD UREA NITROGEN 2 MG/DL (7-18); CALCIUM LEVEL 8.4 MG/DL (8.5-10.1); CARBON DIOXIDE LEVEL 25 MEQ/L (21-32); CHLORIDE LEVEL 104 MEQ/L (98-107); CREATININE FOR GFR 0.48 MG/DL (0.70-1.30); GLOMERULAR FILTRATION RATE > 60.0 (>56); GLUCOSE, FASTING 73 MG/DL (70-100); POTASSIUM SERUM 3.6 MEQ/L (3.5-5.1); SODIUM LEVEL 138 MEQ/L (136-145)
[2020-06-10] MEDS: NS 1,000 ML IV SCH (08:06)
[2020-06-10] MEDS: ENOXAPARIN 40MG/0.4ML SYRINGE (J1650 PER 10MG) SC SCH (08:08)
[2020-06-10] MEDS: OXAZEPAM 10 MG CAP PO SCH ×2 (08:08→19:52)
[2020-06-10] MEDS: MULTIVITAMINS/MINERALS THERAP 1 TAB PO SCH (08:09)
[2020-06-10] MEDS: FOLIC ACID 1 MG TAB PO SCH (08:09)
[2020-06-10] MEDS: PANTOPRAZOLE 40MG TAB (PROTONIX) PO SCH (08:09)
[2020-06-10] MEDS: THIAMINE 100 MG TAB PO SCH ×2 (08:10→19:52)
[2020-06-10] MEDS: ESCITALOPRAM OXALATE 10 MG TAB (LEXAPRO) PO SCH (08:10)
--- NOTE | 2020-06-10 08:53 | IPNPDOC ---
Text Note Date of Service The patient was seen on 06/10/20. NOTE Patient admitted for alcohol intoxication with SIRS found to have most likely perforated appendicitis yday on CT with focal abscess within small bowel mesentery, not amenable to percutaneous drainage. He has been having intermittent febrile episode up to 102 yday prior to starting abx, now has been afebrile denies any significant abdominal discomfort was reportedly very distended on admission, improved. Reports passing flatus and loose bm Pertinent surgical issues include perforated appendicitis with localized abscess, not amenable to percutaneous drainage associated ileus looks to be improving with abx both clinically and with his labs. continue present course plan to repeat CT for follow up on Sat. soft diet ambulate VS,Fishbone, I+O VS, Fishbone, I+O Laboratory Tests 06/10/20 06:29 Vital Signs Date Time Temp Pulse Resp B/P (MAP) Pulse Ox O2 Delivery O2 Flow Rate FiO2 06/10/20 06:00 78 120/79 06/10/20 04:00 99.5 18 97 Room Air I&O- Last 24 Hours up to 6 AM 06/10/20 06:00 Intake Total 3040 ml Output Total 2000 ml Balance 1040 ml STACIE PATINO MD Jun 10, 2020 08:53
--- NOTE | 2020-06-10 09:12 | IPNPDOC ---
Text Note Date of Service The patient was seen on 06/10/20. NOTE Subjective: Patient is a 49-year-old male with a PMHx of Alcohol dependence, Alcohol liver cirrhosis, Alcohol hepatitis and hyperthyroidism who presented to the ER intoxicated and reporting possible withdrawal. Patient was admitted to the hospital service for further evaluation and treatment. Patient was seen and examined at the bedside. Patient denies any nausea, vomiting, pain. Does report a loose bowel movement yesterday. Denies any chest pain, shortness breath, palpitations. Patient has been tolerating his clear liquid diet and will be advanced today as per surgery. Objective: Vitals (See below) General: Patient is sitting up in bed, does not appear to be in any acute distress, is awake, alert and oriented 3 HEENT: NC, AT CVS: +S1S2 Lungs: There appears to be fair air entry bilaterally without any appreciable rhonchi, rales or wheezing Abdomen: Soft without any distention. No tenderness is appreciated in any four quadrant Extremities: No edema of lower extremities, - Calf tenderness Assessment and plan: Fever - likely 2/2 perforated appendix / abscess collection - Patient is agreeable to tolerate a clear liquid diet; will be advanced today as per surgery - No tenderness on exam - PCT slightly elevated - Positive blood cultures - likely 2/2 contamination; 2 separate blood cultures positive 06/02 and 06/03, Staph capitis / Staph epidermidis - Blood cultures 06/03: Negative at 5 days - UA negative - CXR Negative - CT abdomen / pelvis 06/07: Multiloculated right lower quadrant and pelvic abscess measures approximately 7.4 x 4.5 cm and likely represents sequela of ruptured appendicitis. Marked reactive bowel wall thickening involving terminal ileum with a least partial small bowel obstruction at this level. - c/w Zosyn (Day #3) - ID on consult - General surgery, on consultation; diet advanced to soft today; plan for repeat CT imaging on Sunday morning Alcohol withdrawal - Patient has not experience any significant tremors this morning - Hemodynamically stable - c/w CIWA protocol - c/w Thiamine, Folic acid and multivitamins - c/w Serax; will reduce frequency today - Patient will likely require additional rehabilitation Weakness - likely due to above and deconditioning - c/w Fall precautions - c/w PT and OT s/p Thrombocytopenia - likely 2/2 cirrhosis - No evidence of bleeding s/p Metabolic acidosis - likely 2/2 alcoholism, possibly 2/2 starvation ketosis s/p Hyponatremia History of liver cirrhosis 2/2 alcoholism - Currently is compensated - Physical without any abdominal tenderness or distension - Hep C and Hep B were negative 11/2019 - No evidence of ascites or other decompensations on examination s/p Hypoglycemia - likely 2/2 starvation ketosis - Improving Mood disorder - c/w Escitalopram GI Prophylaxis - c/w Protonix DVT prophylaxis - c/w Lovenox Disposition: - Pending clinical improvement - c/w PT and OT VS,Fishbone, I+O VS, Fishbone, I+O Laboratory Tests 06/10/20 06:29 Vital Signs Date Time Temp Pulse Resp B/P (MAP) Pulse Ox O2 Delivery O2 Flow Rate FiO2 06/10/20 06:00 78 120/79 06/10/20 04:00 99.5 18 97 Room Air I&O- Last 24 Hours up to 6 AM 06/10/20 06:00 Intake Total 3040 ml Output Total 2000 ml Balance 1040 ml BERTIN HARDY MD Jun 10, 2020 09:12
--- NOTE | 2020-06-10 12:24 | IPN ---
PROGRESS NOTE DATE: 06/09/2020 SUBJECTIVE: The patient was n.p.o. overnight and this morning, he had some significant decreased abdominal distention, had some diarrheal bowel movement, and he feels good at this time and is hoping for a regular diet. OBJECTIVE: Otherwise, he has unfortunately had some temperature spikes overnight. His white count is still within normal limits, but he does have a bandemia. His abdomen is soft in the upper abdomen; but in the suprapubic where the abscess is noted to be present on the CT scan, he has some fullness in this area, but no tenderness whatsoever and more importantly, he is definitely less distended in this area compared to yesterday and throughout his abdomen. ASSESSMENT AND PLAN: The patient has been started on some antibiotics. We will see if this does improve his overall infectious process. Unfortunately, I do feel that the infection has probably been here since his admission and probably had a perforation either prior to or earlier on in his admission of the appendix, and we will have to see if this resolves with antibiotics or at least improves with antibiotics. He may need a follow-up CT scan in the ensuring 24-48 hours to see if there is any drainable collection. Unfortunately, he is a difficult patient to work with in that he is insistent about a regular diet at this point, and I do feel that there is a good chance that he may push his gastrointestinal (GI) trace a little bit too quickly and end up with some nausea and vomiting. More importantly, I do feel that there is still a significant possibility that he may need a laparotomy with possible drainage of intraabdominal abscesses, but at this point we will continue with current treatment given that he has "no pain" and feels good. Dr. Cannon will be covering this weekend and I will return after the holiday weekend.
[2020-06-10] MEDS ORDERED: ONDANSETRON 4MG/2ML VIAL IV PRN (18:00)
[2020-06-11] VITALS (8 sets, daily range): BP systolic 120–131; BP diastolic 77–88
[2020-06-11] MEDS: PIPERACILLIN/TAZOBACTAM SOD 3.375 GM in D5W MINI-BAG PLUS 50 ML IV SCH ×4 (02:11→20:04)
[2020-06-11] MEDS: SLF 3 ML SYR IV SCH ×3 (05:36→20:07)
[2020-06-11 07:13] LABS: HEMATOCRIT 37.7 % (42.0-52.0); HEMOGLOBIN 12.5 g/dl (13.5-17.5); MEAN CORPUSCULAR HEMOGLOBIN 31.2 pg (27.0-33.0); MEAN CORPUSCULAR HGB CONC 33.2 g/dl (32.0-36.5); RED BLOOD COUNT 4.01 10^6/uL (4.30-6.10); WHITE BLOOD COUNT 9.2 10^3/uL (4.0-10.0)
[2020-06-11 07:17] LABS: PLATELET COUNT, AUTOMATED 752 10^3/uL (150-450)
[2020-06-11 07:33] LABS: BLOOD UREA NITROGEN 1 MG/DL (7-18); CALCIUM LEVEL 9.4 MG/DL (8.5-10.1); CARBON DIOXIDE LEVEL 28 MEQ/L (21-32); CHLORIDE LEVEL 105 MEQ/L (98-107); CREATININE FOR GFR 0.66 MG/DL (0.70-1.30); GLOMERULAR FILTRATION RATE > 60.0 (>56); GLUCOSE, FASTING 84 MG/DL (70-100); POTASSIUM SERUM 4.1 MEQ/L (3.5-5.1); SODIUM LEVEL 140 MEQ/L (136-145)
[2020-06-11 07:46] LABS: ATYPICAL LYMPH 3 % (0-5); BASOPHILS 1 % (0-1); EOSINOPHILS 2 % (0-3); LYMPHOCYTES 18 % (16-44); MONOCYTES 9 % (0-5); MYELOCYTES 1 % (0-0); NEUTROPHILS 56 % (28-66); PLATELET ESTIMATE INCREASED (NORMAL)
[2020-06-11 07:47] LABS: ANISOCYTOSIS 1+
[2020-06-11] MEDS: ENOXAPARIN 40MG/0.4ML SYRINGE (J1650 PER 10MG) SC SCH (08:31)
[2020-06-11] MEDS: MULTIVITAMINS/MINERALS THERAP 1 TAB PO SCH (08:32)
[2020-06-11] MEDS: ESCITALOPRAM OXALATE 10 MG TAB (LEXAPRO) PO SCH (08:32)
[2020-06-11] MEDS: OXAZEPAM 10 MG CAP PO SCH ×2 (08:33→20:04)
[2020-06-11] MEDS: PANTOPRAZOLE 40MG TAB (PROTONIX) PO SCH (08:33)
[2020-06-11] MEDS: FOLIC ACID 1 MG TAB PO SCH (08:33)
[2020-06-11] MEDS: THIAMINE 100 MG TAB PO SCH ×2 (08:34→20:04)
--- NOTE | 2020-06-11 08:50 | IPNPDOC ---
Text Note Date of Service The patient was seen on 06/11/20. NOTE Patient feels well this morning. Using been able to tolerate soft diet yesterday without any nausea and vomiting, passing semiliquid, soft stools without blood. Vital signs He has been afebrile 48 hours now since we started him on IV antibiotic Patient sitting up on his bed, looks fairly comfortable in no acute distress Lung sounds are clear to auscultation bilaterally Regular heart rate and rhythm Abdomen slightly rounded soft and minimally distended. Nontender on palpation, mild fullness over the suprapubic infraumbilical area but no tenderness normal overlying skin Impression and plan Perforated appendicitis with localized abscess at the small bowel mesentery that is not amenable to percutaneous drainage Seems to be improving with IV antibiotics. He will repeat the CT tomorrow to reevaluate for the abscess but given her clinical improvement may not need dr alvarez of that abscess, may be a sterile abscess collection. VS,Fishbone, I+O VS, Fishbone, I+O Laboratory Tests 06/11/20 06:11 Vital Signs Date Time Temp Pulse Resp B/P (MAP) Pulse Ox O2 Delivery O2 Flow Rate FiO2 06/11/20 06:00 98.5 63 18 129/86 (100) 96 Room Air I&O- Last 24 Hours up to 6 AM 06/11/20 06:00 Intake Total 1000 ml Output Total 1403 ml Balance -403 ml STACIE PATINO MD Jun 11, 2020 08:50
--- NOTE | 2020-06-11 13:26 | IPNPDOC ---
Text Note Date of Service The patient was seen on 06/11/20. NOTE Subjective: Patient seen and examined at bedside. No acute overnight events reported. No new medical complaints this morning. Objective: Vitals (See below) General: Patient is sitting up in bed, does not appear to be in any acute distress, is awake, alert and oriented 3 HEENT: NC, AT CVS: +S1S2 Lungs: There appears to be fair air entry bilaterally without any appreciable rhonchi, rales or wheezing Abdomen: Soft without any distention. No tenderness is appreciated in any four quadrant Extremities: No edema of lower extremities, - Calf tenderness A/P: 49M with a PMHx of Alcohol dependence, Alcohol liver cirrhosis, Alcohol hepatitis and hyperthyroidism who presented to the ER intoxicated and reporting possible withdrawal. Patient was admitted to the hospital service for further evaluation and treatment. #Fever - likely 2/2 perforated appendix / abscess collection - follow as per surgery - No tenderness on exam - Positive blood cultures - likely 2/2 contamination; 2 separate blood cultures positive 06/02 and 06/03, Staph capitis / Staph epidermidis - Blood cultures 06/03: Negative at 5 days - UA negative - CXR Negative - CT abdomen / pelvis 06/07: Multiloculated right lower quadrant and pelvic abscess measures approximately 7.4 x 4.5 cm and likely represents sequela of ruptured appendicitis. Marked reactive bowel wall thickening involving terminal ileum with a least partial small bowel obstruction at this level. - c/w Zosyn (Day #4) - ID on consult - General surgery, on consultation; plan for repeat CT imaging on Sunday morning #Alcohol withdrawal - Hemodynamically stable - c/w [facility] protocol - c/w Thiamine, Folic acid and multivitamins - c/w Serax; will reduce frequency today - Patient will likely require additional rehabilitation #Weakness - likely due to above and deconditioning - c/w Fall precautions - c/w PT and OT #s/p Thrombocytopenia - likely 2/2 cirrhosis - No evidence of bleeding #s/p Metabolic acidosis - likely 2/2 alcoholism, possibly 2/2 starvation ketosis #s/p Hyponatremia #History of liver cirrhosis 2/2 alcoholism - Currently is compensated - Physical without any abdominal tenderness or distension - Hep C and Hep B were negative 11/2019 - No evidence of ascites or other decompensations on examination #s/p Hypoglycemia - likely 2/2 starvation ketosis - Improving #Mood disorder - c/w Escitalopram #GI Prophylaxis - c/w Protonix #DVT prophylaxis - c/w Lovenox VS,Fishbone, I+O VS, Fishbone, I+O Laboratory Tests 06/11/20 06:11 Vital Signs Date Time Temp Pulse Resp B/P (MAP) Pulse Ox O2 Delivery O2 Flow Rate FiO2 06/11/20 10:00 99.0 62 17 131/88 (102) 98 Room Air I&O- Last 24 Hours up to 6 AM 06/11/20 06:00 Intake Total 1000 ml Output Total 1403 ml Balance -403 ml ANGELA CUNHA MD Jun 11, 2020 13:26
[2020-06-12 02:00] VITALS: BP 125/79
[2020-06-12] MEDS: PIPERACILLIN/TAZOBACTAM SOD 3.375 GM in D5W MINI-BAG PLUS 50 ML IV SCH ×2 (04:48→08:48)
[2020-06-12] MEDS: SLF 3 ML SYR IV SCH (04:48)
[2020-06-12] MEDS ORDERED: ISOVUE-370 76% 100ML VIAL As Ordered ONE (05:01)
[2020-06-12 06:00] VITALS: BP 141/84
[2020-06-12] MEDS ORDERED: GASTROGRAFIN SOLUTION 30ML (Q9963) PO SCH (06:00)
[2020-06-12] MEDS: GASTROGRAFIN SOLUTION 30ML PO SCH ×2 (06:05→06:34)
[2020-06-12 07:03] LABS: HEMATOCRIT 36.2 % (42.0-52.0); HEMOGLOBIN 11.9 g/dl (13.5-17.5); MEAN CORPUSCULAR HGB CONC 32.9 g/dl (32.0-36.5); MEAN CORPUSCULAR VOLUME 94.3 fl (80.0-96.0); PLATELET COUNT, AUTOMATED 848 10^3/uL (150-450); RED BLOOD COUNT 3.84 10^6/uL (4.30-6.10)
[2020-06-12 07:12] LABS: BLOOD UREA NITROGEN 2 MG/DL (7-18); C REACTIVE PROTEIN QUANTITATIV 5.79 MG/DL (0.00-0.30); CALCIUM LEVEL 9.2 MG/DL (8.5-10.1); CARBON DIOXIDE LEVEL 27 MEQ/L (21-32); CHLORIDE LEVEL 106 MEQ/L (98-107); GLOMERULAR FILTRATION RATE > 60.0 (>56); GLUCOSE, FASTING 101 MG/DL (70-100); MAGNESIUM LEVEL 1.9 MG/DL (1.8-2.4); POTASSIUM SERUM 4.1 MEQ/L (3.5-5.1); SODIUM LEVEL 140 MEQ/L (136-145)
[2020-06-12 07:37] LABS: ATYPICAL LYMPH 2 % (0-5); EOSINOPHILS 2 % (0-3); LYMPHOCYTES 31 % (16-44); METAMYELOCYTES 1 % (0-0); MONOCYTES 6 % (0-5); MYELOCYTES 1 % (0-0); NEUTROPHILS 51 % (28-66); PLATELET ESTIMATE INCREASED (NORMAL)
[2020-06-12 07:38] LABS: ANISOCYTOSIS 1+
[2020-06-12 08:00] VITALS: BP 141/84
--- NOTE | 2020-06-12 08:10 | REPVR ---
PROCEDURE INFORMATION: Exam: CT Abdomen And Pelvis With Contrast Exam date and time: 06/12/2020 7:30 AM Age: 49 years old Clinical indication: Condition or disease; Abscess; Abscess location: Appendix; Additional info: Ffup abscess TECHNIQUE: Imaging protocol: Computed tomography of the abdomen and pelvis with intravenous contrast. Radiation optimization: All CT scans at this facility use at least one of these dose optimization techniques: automated exposure control; mA and/or kV adjustment per patient size (includes targeted exams where dose is matched to clinical indication); or iterative reconstruction. Contrast material: ISOVUE 370; Contrast volume: 100 ml; Contrast route: INTRAVENOUS (IV); COMPARISON: CT ABD/PEL W/IV CONTRAST ONLY 06/07/2020 4:53 PM FINDINGS: Pleural space: There is trace left-sided pleural effusion. There is bibasilar linear atelectatic changes. Liver: The liver is hypoattenuated. Gallbladder and bile ducts: Normal. No calcified stones. No ductal dilation. Pancreas: Normal. No ductal dilation. Spleen: Normal. No splenomegaly. Adrenal glands: Normal. No mass. Kidneys and ureters: Normal. No hydronephrosis. Stomach and bowel: There is interval decrease in size of large collection seen on the prior exam. Residual collection measuring approximately 4.9 x 2.7 x 1.9 cm is noted posterior to the terminal ileum however extensive residual inflammatory changes are noted. The cecum and ascending colon as well as the terminal ileum are markedly thickened and edematous. Diffuse mesenteric edema and stranding and reactive lymph nodes are seen. There is interval decrease in bowel distention however residual dilated bowel loops seen measuring up to 3.9 centimetres. There is suggestion of diffusely thickened colon with few intermittent distended and spared nonthickened colon. Appendix: No evidence of appendicitis. Intraperitoneal space: Unremarkable. No free air. No significant fluid collection. Vasculature: Unremarkable. No abdominal aortic aneurysm. Lymph nodes: See "Stomach and bowel" finding. Urinary bladder: The urinary bladder wall is thickened. Reproductive: Unremarkable as visualized. Bones/joints: Unremarkable. No acute fracture. Soft tissues: Unremarkable. IMPRESSION: 1. Perforated appendicitis with extensive lower abdominal and pelvic inflammatory changes manifested by significant thickening of the terminal ileum, cecum and ascending colon coupled with extensive surrounding inflammation in addition to mesenteric inflammation and reactive lymph nodes overall grossly unchanged since the prior study however there is interval decrease in size in abscess seen posterior to the terminal ileum and medial to the cecum now measuring approximately 4.9 x 2.7 x 1.9 cm, previously measures 7.4 x 4.5 x 6.3 centimetres. 2. Thickened small bowel and large bowel loops as well as urinary bladder are possibly reactive however underlying enteritis, colitis or cystitis cannot be excluded. 3. Interval decrease in the degree small bowel dilatation however residual multiple dilated small bowel loops up to 3.9 cm is noted possibly due to generalized ileus however contrast progression to the cecum is not seen and thus an element of obstruction at the level of the distal/terminal ileum cannot be completely excluded. Follow-up KUB or CT scan is suggested to document distal progression of the contrast. 4. Fatty infiltration of the liver. 5. Trace left-sided pleural effusion. Electronically signed by: James Joyner On 06/12/2020 08:10:27 AM
[2020-06-12] MEDS: ESCITALOPRAM OXALATE 10 MG TAB (LEXAPRO) PO SCH (08:48)
[2020-06-12] MEDS: MULTIVITAMINS/MINERALS THERAP 1 TAB PO SCH (08:48)
[2020-06-12] MEDS: THIAMINE 100 MG TAB PO SCH (08:48)
[2020-06-12] MEDS: FOLIC ACID 1 MG TAB PO SCH (08:48)
[2020-06-12] MEDS: PANTOPRAZOLE 40MG TAB (PROTONIX) PO SCH (08:48)
[2020-06-12] MEDS: OXAZEPAM 10 MG CAP PO SCH (08:49)
[2020-06-12] MEDS: ENOXAPARIN 40MG/0.4ML SYRINGE (J1650 PER 10MG) SC SCH (08:49)
[2020-06-12] MEDS ORDERED: FOLI1TAB11 PO (09:50)
[2020-06-12] MEDS ORDERED: AMOX875T2 PO (09:50)
[2020-06-12] MEDS ORDERED: VITMTA PO (09:50)
[2020-06-12] MEDS ORDERED: METR-265 PO (09:50)
[2020-06-12] MEDS ORDERED: THIA100TA PO (09:50)
[2020-06-12 10:00] VITALS: BP 130/85
--- NOTE | 2020-06-12 10:05 | DS.PDOC ---
Discharge Summary General Date of Admission Jun 02, 2020 at 21:07 Date of Discharge 06/12/20 Specialist/Consultants Involve surgery, infectious disease Discharge Summary PROCEDURES PERFORMED DURING STAY: [None]. DISCHARGE DIAGNOSES: #perforated appendicitis with localized abscess - not amenable to percutaneous drainage #EtOH abuse #Alcoholic Liver cirrhosis #hx of Rhabdomyolysis #hx of alcoholic hepatitis #Seizure disorder ? vs DTs #Hyperthyroidism #Depression #Angiomyolipoma #Thumb surgery #Tonsillectomy COMPLICATIONS/CHIEF COMPLAINT: Alcohol Intoxication,Sirs. HISTORY OF PRESENT ILLNESS: On admission, the patient was unable to provide any meaningful history, the majority of the history was obtained from ER records and . This 49 yr old male's had been concerned about her and called for a well check on him. The patient reported binge drinking but was unable to quantify the amount. He reported that he thinks his last drink was several days ago and was surprised that his serum EtOH is still elevated. He admits to drinking vodka and lying in bed all day watching TV. He added that he can't walk, has been feeling weak and can't remember the last time that he walked on his own, and has not eaten for the last 3 days. He denied having any acute stressors in his life and admits to suffering with depression. He was on Lexapro but forgot to take the medication for at least 1 week. He admits to having a [place] and tremors, but denies having visual or auditory hallucinations or sensation of things crawling on him. He denied having f/c/n/v/ or diarrhea. He reported having seizures even when he drinks, admits to having liver cirrhosis and reports occasionally having acute abdominal pain. He denied ever vomiting blood or having blood in his stools or ascites. HOSPITAL COURSE: #Fever - likely 2/2 perforated appendix / abscess collection - followed by surgery - recs for discharge with oral abx and outpatient follow up - improved with antibiotic therapy - not amenable to percutaneous drainage - Positive blood cultures - likely 2/2 contamination; 2 separate blood cultures positive 06/02 and 06/03, Staph capitis / Staph epidermidis - Repeat Blood cultures 06/03: Negative at 5 days - ID on consult - assistance appreciated #Alcohol withdrawal - Hemodynamically stable - c/w Thiamine, Folic acid and multivitamins #Weakness - likely due to above and deconditioning - c/w Fall precautions - c/w PT and OT #s/p Thrombocytopenia - likely 2/2 cirrhosis - No evidence of bleeding #s/p Metabolic acidosis - likely 2/2 alcoholism, possibly 2/2 starvation ketosis #s/p Hyponatremia #History of liver cirrhosis 2/2 alcoholism - Currently is compensated - Physical without any abdominal tenderness or distension - Hep C and Hep B were negative 11/2019 - No evidence of ascites or other decompensations on examination #Mood disorder - c/w Escitalopram DISCHARGE MEDICATIONS: Please see below. ALLERGIES: Please see below. PHYSICAL EXAMINATION ON DISCHARGE: VITAL SIGNS: Please see below. General: sitting comfortably in bed, NAD HEENT: NC, AT CVS: +S1S2 Lungs: CTA B/L Abdomen: soft, NT, ND, +BS Extremities: no edema LABORATORY DATA: Please see below. ACTIVITY: [As tolerated]. DIET: Regular DISPOSITION: Home with services DISCHARGE INSTRUCTIONS: 1. Follow up with surgery in 3-7 days. 2. Follow up with PCP in 3-5 days. 3. Stop alcohol use. DISCHARGE CONDITION: [Stable]. TIME SPENT ON DISCHARGE: 35 minutes. Vital Signs/I&Os Vital Signs Date Time Temp Pulse Resp B/P (MAP) Pulse Ox O2 Delivery O2 Flow Rate FiO2 06/12/20 06:00 98.4 71 18 141/84 (103) 97 Room Air I&O- Last 24 Hours up to 6 AM 06/12/20 06:00 Intake Total 2100 ml Output Total 825 ml Balance 1275 ml Laboratory Data Labs 24H Laboratory Tests 2 06/12/20 06:24: Neutrophils (%) (Auto) , Nucleated Red Blood Cells % (auto) 0.0, Neutrophils 51, Band Neutrophils 6, Lymphocytes (Manual) 31, Monocytes (Manual) 6H, Eosinophils (Manual) 2, Metamyelocytes 1H, Myelocytes 1H, Atypical Lymphocytes 2, Anisocytosis 1+, Platelet Estimate INCREASED, Anion Gap 7L, Glomerular Filtration Rate > 60.0, Calcium Level 9.2, Magnesium Level 1.9, C-Reactive Protein, Quantitative 5.79H CBC/BMP Laboratory Tests 06/12/20 06:24 Microbiology Microbiology 06/07/20 Blood Culture - Final, Complete NO GROWTH AFTER 5 DAYS 06/07/20 Blood Culture - Final, Complete NO GROWTH AFTER 5 DAYS 06/04/20 Blood Culture - Final, Complete NO GROWTH AFTER 5 DAYS 06/03/20 Blood Culture - Final, Complete NO GROWTH AFTER 5 DAYS 06/03/20 Blood Culture - Final, Complete Staphylococcus Epidermidis 06/02/20 Respiratory Virus Panel (PCR) ([facility]) - Final, Complete 06/02/20 Blood Culture - Final, Complete Staphylococcus Capitis Discharge Medications Scheduled Amoxicillin/Potassium Clav (Amox-Clav 875-125 mg Tablet) 1 Each Tablet, 1 TAB PO BID Escitalopram Oxalate (Lexapro) 20 Mg Tablet, 20 MG PO DAILY, (Reported) Folic Acid (Folic Acid) 1 Mg Tablet, 1 MG PO DAILY Metronidazole (Metronidazole) 500 Mg Tablet, 500 MG PO TID Multivitamins (Thera M Plus Tablet) 1 Each Tablet, 1 TAB PO DAILY Tamsulosin HCl (Flomax) 0.4 Mg Capsule, 0.8 MG PO DAILY, (Reported) Thiamine Hcl (Vitamin B-1) 100 Mg Tablet, 100 MG PO DAILY Miscellaneous Medications [Patient Comment] , (Reported) PATIENT UNAVAILABLE. MED REC COMPLETED VIA EXTERNAL MED HISTORY AND PHARMACY. Allergies Coded Allergies: No Known Allergies (Unverified , 11/20/19) ANGELA CUNHA MD Jun 12, 2020 10:05
--- NOTE | 2020-06-12 10:06 | IPNPDOC ---
Text Note Date of Service The patient was seen on 06/12/20. NOTE Patient remains stable, afebrile x more than 48 hrs now since abx has been s tarted. He has been tolerating soft foods, and his diarrhea has improved also. VS stable comfortabl abdomen, soft, nondistended, nontender Impression and plan: possibly perforated appendicitis with abscess I repeated the CT this morning and as expected there is improvement of the size of the abscess, but has not resolved, still with significant inflammatory changes around terminal ileum Given that he has improved to the point that he looks well and is tolerating diet and has been afebrile on antibiotics, I think we can continue the antibiotics at home and have him closely follow up with us in the clinic, potentially repeat CT in 2 weeks to follow up on the abscess and inflammation. There is a chance that he may return with failed nonoperative therapy may need to return to the hospital but at this point, would be more risky to go in an drain the abscess for potential bowel injury. Patient is also advised to refrain from alcohol during the treatment and observation. VS,Fishbone, I+O VS, Fishbone, I+O Laboratory Tests 06/12/20 06:24 Vital Signs Date Time Temp Pulse Resp B/P (MAP) Pulse Ox O2 Delivery O2 Flow Rate FiO2 06/12/20 06:00 98.4 71 18 141/84 (103) 97 Room Air I&O- Last 24 Hours up to 6 AM 06/12/20 06:00 Intake Total 2100 ml Output Total 825 ml Balance 1275 ml STACIE PATINO MD Jun 12, 2020 10:06
== END 2020-06-12 13:35 | disposition home or self-care (01) | DRG 248 ==
LOC: M ED 16:25 → M ED INP 21:07 → ENRESERV 06-03 00:07 → M PCU 06-03 01:30 → M MS5PR 06-06 11:00
PROVIDERS: ADMIT Internal Medicine; ATTEND Internal Medicine
DX: K35.33 Acute appendicitis with perforation, localized peritonitis, and gangrene, with abscess (principal); E88.89 Other specified metabolic disorders; E87.2 Acidosis; D69.6 Thrombocytopenia, unspecified; E87.1 Hypo-osmolality and hyponatremia; K70.30 Alcoholic cirrhosis of liver without ascites; F10.229 Alcohol dependence with intoxication, unspecified; E53.8 Deficiency of other specified B group vitamins; E16.2 Hypoglycemia, unspecified; F39 Unspecified mood [affective] disorder; R00.0 Tachycardia, unspecified

== ENCOUNTER → 2020-07-27 | Outpatient (CLI) | payer OTHER ==
[~2020-07-27] MED LIST changes: +AMOX875T2 PO; +FLOM0.4C39 PO; +LEXA1TAB2 PO; +METR-265 PO; +PATIENT COMMENT; +THIA100TA PO
--- NOTE | 2020-07-27 09:50 | REP ---
INDICATION: CIRRHOSIS COMPARISON: None. TECHNIQUE: Real time mixon scale ultrasound examination using curved array transducer. FINDINGS: Liver is relatively normal although mild fatty infiltration cannot be excluded. No focal hepatic lesion identified. The pancreas is incompletely evaluated due to interposed bowel gas but visualized portions appear normal. The gallbladder is normal and without gallstones, wall thickening, or pericholecystic fluid. No biliary ductal dilatation is appreciated and the common bile duct measures 3.0 mm diameter. Right kidney is normal in reniform shape without hydronephrosis and measures 11.2 x 5.5 x 4.7 cm. No ascites in the visualized right upper quadrant. IMPRESSION: Suggestions for mild hepatosteatosis. Otherwise normal right upper quadrant/liver ultrasound. <Electronically signed by Preet Martínez > 07/27/20 0910
== END ==
LOC: M RAD 09:18
PROVIDERS: ATTEND Physician Assistant
DX: K74.60 Unspecified cirrhosis of liver (principal)

== ENCOUNTER → 2020-08-30 | Outpatient (CLI) | payer OTHER ==
[~2020-08-30] MED LIST changes: +GASTROGRAFIN SOLUTION 30ML (Q9963) As Ordered ONE; +ISOVUE-370 76% 100ML VIAL As Ordered ONE
--- NOTE | 2020-08-31 06:43 | REP ---
INDICATION: CUTANEOUS ABSCESS OF ABD WALL. COMPARISON: 06/12/2020 TECHNIQUE: Axial contrast-enhanced images from the lung bases to the pubic symphysis using 100 cc Isovue 370 intravenous contrast material. Coronal and sagittal reformations obtained. This CT examination was performed using the following dose reduction techniques: Automated exposure control, adjustment of mA and/or kv according to the patient's size, and the use of iterative reconstruction technique. FINDINGS: Liver, spleen, pancreas, gallbladder, bilateral adrenal glands are normal. The kidneys demonstrate very subtle striated nephrogram with parenchymal haziness raising the possibility of pyelonephritis. No hydronephrosis or further urinary tract abnormality noted. The enteric system including stomach, small, and large bowel appears normal. No evidence for obstruction or acute inflammatory process. Normal terminal ileum and appendix are identified in the right lower quadrant. The previous changes in the right lower quadrant related to perforated appendicitis and abscess formation have resolved. Only small residual mesenteric lymph nodes are now identified in the right lower quadrant. Pelvis demonstrates normal bladder and age-appropriate prostate/seminal vesicles. No ascites. No free air. No intraperitoneal or retroperitoneal adenopathy. Abdominal aorta and vasculature appear normal. Musculoskeletal structures are intact and without acute osseous abnormality. IMPRESSION: 1. Subtle striated nephrogram raises the possibility of pyelonephritis and correlation with physical examination and urinalysis is recommended. 2. Previous findings related to perforated appendicitis have resolved. 3. No ascites, focal inflammatory stranding, or free air. <Electronically signed by Preet Martínez > 08/31/20 0639
== END ==
LOC: M RAD 13:33
PROVIDERS: ATTEND Surgery
DX: L02.211 Cutaneous abscess of abdominal wall (principal)
CPT/HCPCS: 74177; Q9963; Q9967

== ENCOUNTER 2020-11-01 06:44 | Inpatient (IN) | payer OTHER ==
[~2020-11-01] VITALS: Ht 177.8 cm; Wt 69.0 kg
[~2020-11-01 06:44] MED LIST changes: -GASTROGRAFIN SOLUTION 30ML (Q9963) As Ordered ONE; -ISOVUE-370 76% 100ML VIAL As Ordered ONE; -SIME180C PO; +SIME180C25 PO
[2020-11-01] MEDS ORDERED: KETOROLAC 30 MG/ML 1ML VIAL IV ONE (07:30)
[2020-11-01] MEDS ORDERED: ACETAMINOPHEN TAB 650MG DOSE (2X325MG) PO ONE (07:40)
[2020-11-01] MEDS ORDERED: LORazepam 2 MG TAB PO PRN ×2 (07:40→11:05)
[2020-11-01] MEDS: NS 1,000 ML IV SCH ×3 (07:41→14:55)
[2020-11-01 07:47] LABS: HEMATOCRIT 35.9 % (42.0-52.0); HEMOGLOBIN 11.9 g/dl (13.5-17.5); MEAN CORPUSCULAR HEMOGLOBIN 31.3 pg (27.0-33.0); MEAN CORPUSCULAR HGB CONC 33.1 g/dl (32.0-36.5); MEAN CORPUSCULAR VOLUME 94.5 fl (80.0-96.0); PLATELET COUNT, AUTOMATED 237 10^3/uL (150-450); WHITE BLOOD COUNT 4.8 10^3/uL (4.0-10.0)
[2020-11-01 07:56] LABS: ALT/SGPT 200 U/L (12-78); BILIRUBIN,DIRECT 0.2 MG/DL (0.0-0.2); BILIRUBIN,TOTAL 0.5 MG/DL (0.2-1.0); BLOOD UREA NITROGEN 11 MG/DL (7-18); CALCIUM LEVEL 10.3 MG/DL (8.5-10.1); CARBON DIOXIDE LEVEL 30 MEQ/L (21-32); CHLORIDE LEVEL 102 MEQ/L (98-107); CK-MB VALUE MASS < 1.0 NG/ML (<3.6); CPK CREATINE PHOSPHOKINASE 89 U/L (39-308); CREATININE FOR GFR 0.87 MG/DL (0.70-1.30); ETHYL ALCOHOL (ETHANOL) < 0.003 % (0.000-0.010); GLOMERULAR FILTRATION RATE > 60.0 (>56); GLUCOSE, FASTING 115 MG/DL (70-100); LIPASE 102 U/L (73-393); MAGNESIUM LEVEL 1.5 MG/DL (1.8-2.4); MB/CK RELATIVE INDEX 1.12 (< OR =4); SODIUM LEVEL 137 MEQ/L (136-145); TROPONIN I < 0.02 NG/ML (< 0.10)
[2020-11-01] MEDS ORDERED: MAG SULF 1GM/100ML (MAG RUN) 1 GM in IV 1 EA IV ONE (08:05)
[2020-11-01] MEDS ORDERED: ISOVUE-370 76% 100ML VIAL As Ordered ONE (08:10)
[2020-11-01 08:12] LABS: VENOUS BASE EXCESS 1.8 (-2.0-2.0); VENOUS HCO3 25.9 MEQ/L (23.0-27.0); VENOUS O2 SATURATION 91.6 % (60.0-80.0); VENOUS PARTIAL PRESSURE CO2 38.8 mmHg (38.0-50.0); VENOUS PARTIAL PRESSURE O2 58.8 mmHg (30.0-50.0); VENOUS PH 7.443 UNITS (7.330-7.430); VENOUS TOTAL CO2 27.1 MEQ/L (24.0-28.0)
[2020-11-01 08:33] LABS: INR 0.94; PROTHROMBIN TIME 12.7 SECONDS (12.5-14.3)
[2020-11-01 08:34] LABS: PARTIAL THROMBOPLASTIN TIME 23.3 SECONDS (24.2-38.5)
[2020-11-01 08:38] LABS: ATYPICAL LYMPH 1 % (0-5); HYPOCHROMASIA 1+; LYMPHOCYTES 12 % (16-44); MONOCYTES 9 % (0-5); NEUTROPHILS 72 % (28-66); PLATELET ESTIMATE NORMAL (NORMAL)
--- NOTE | 2020-11-01 08:40 | REP ---
INDICATION: RLQ pain, Hx of ruptured appy with abscess 06/04. COMPARISON: 08/30/2020, 06/12/2020 TECHNIQUE: Axial contrast-enhanced images from the lung bases to the pubic symphysis using oral and 100 cc Isovue 370 intravenous contrast material. Coronal and sagittal reformations obtained. This CT examination was performed using the following dose reduction techniques: Automated exposure control, adjustment of mA and/or kv according to the patient's size, and the use of iterative reconstruction technique. FINDINGS: The small bowel is moderately distended and demonstrates multiple fluid-filled loops with mucosal thickening and perienteric inflammatory changes primarily within the pelvis extending to the right lower quadrant and involving the distal ileum. Findings include scattered small amounts of free fluid and stranding. The appendix is noted centered within the most prominent inflammatory changes in the right lower quadrant and demonstrates relatively secondary inflammatory changes and do not suggest acute appendicitis. There also appears to be an area of jejunal-jejunal intussusception in the left mid abdomen (series 201 images 55-80). The large bowel demonstrates moderate to significant fecal stasis. There is no area of focal obstruction and no free air to suggest definite perforation. Liver demonstrates diffuse fatty infiltration without focal hepatic lesion. Spleen, pancreas, gallbladder, bilateral adrenal glands and kidneys are normal. Further evaluation of the pelvis suggests chronic bladder wall thickening and mild prostatomegaly. No significant adenopathy. No obvious focal mass lesion identified. The abdominal aorta and vasculature are grossly normal and without aneurysm or dissection. Musculoskeletal structures are intact. Lung bases are clear. IMPRESSION: 1. Findings described above most suspicious for a primary infectious/inflammatory small bowel process. Differential diagnosis includes enteritis and inflammatory bowel diseases. 2. Further nonacute findings as described above. <Electronically signed by Preet Martínez > 11/01/20 0872
[2020-11-01] MEDS ORDERED: PIPERACILLIN/TAZOBACTAM SOD 4.5 GM in D5W MINI-BAG PLUS 50 ML IV ONE (09:20)
[2020-11-01] MEDS ORDERED: VITATAB73 PO (09:31)
[2020-11-01] MEDS ORDERED: THERTAB21 PO (09:31)
--- NOTE | 2020-11-01 09:40 | ECGEPIP ---
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
[2020-11-01] MEDS ORDERED: ACETAMINOPHEN TAB 650MG DOSE (2X325MG) PO PRN (11:10)
--- NOTE | 2020-11-01 12:09 | HPEPDOC ---
General Date of Admission Nov 01, 2020 at 11:02 Date of Service: Nov 01, 2020 Chief Complaint The patient is a 50-year-old male admitted with a reason for visit of Pertionitis. Source: Patient History of Present Illness Mr. Saavedra is a 50 year old male history of alcoholic hepatitis and appendix perforation and abscess medically managed who presents with intense right lower quadrant abdominal pain. He was last here in May 2020 for alcohol intoxication and fever and was found to have perforation of appendix with abscess. He did not have abdominal pain or tenderness at that time. It was medically managed. He was doing okay, but at 6PM he had intense abdominal pain, rated 8/10. It was a constant dull pain located in the RLQ, that has been worse with breathing or moving. He has not tried eating. Last BM was this morning. Pain was persistent, and he was worried about his appendix and came to the ED. While in the ED, he had a fever of 101.3 and HR of 111. No leukocytosis. CT abd/pelvis demonstrated inflammatory changes in the right lower quadrant, but does not suggest acute appendicitis. On examination, patient had severe tenderness to percussion. Otherwise he had mild tremors, denies anxiety. He last drank alcohol last 4 days ago. General surgery was consulted who will see the patient. Patient will be admitted for peritonitis. Home Medications Scheduled Escitalopram Oxalate (Lexapro) 20 Mg Tablet, 20 MG PO DAILY, (Reported) Multivit,Calc,Mins/Iron/Folic (Thera-M Tablet) 1 Each Tablet, 1 TAB PO DAILY, (Reported) Vitamin B Complex (Vitamin B Complex) 1 Each Tablet, 1 TAB PO DAILY, (Reported) Allergies Coded Allergies: No Known Allergies (Unverified , 11/20/19) Past Medical History Medical History 1. Alcoholism 2. History of alcoholic hepatitis 3. Alcoholic liver cirrhosis 4. Hyperthyroidism 5. Depression 6. History of perforated abscess with localized abscess managed medically Surgical History 1. Angiomyolipoma 2. Thumb surgery 3. Tonsillectomy Family History Father: from [place] at the age of 51 Mother: Bipolar, insomnia Social History * Smoker: former Smoker Alcohol: other (History of binge drinking. Last drink 4 days ago) Drugs: denies A-FIB/CHADSVASC A-FIB History Current/History of A-Fib/PAF?: No Review of Systems Constitutional: Reports: Fever; Denies: Chills Eyes: Denies: Vision change ENT: Denies: Sore Throat Skin: Denies: Rash Pulmonary: Denies: Dyspnea, Cough Cardiovascular: Denies: Chest Pain Gastrointestinal: Reports: Abdominal Pain (Worse in the RLQ. ); Denies: Nausea, Diarrhea, Constipation Genitourinary: Denies: Dysuria Hematologic: Denies: Bruising Neurological: Denies: Numbness Psych: Denies: Anxiety, Depression Physical Examination General Exam: Positive: Alert, Cooperative, Mild Distress Eye Exam: Positive: EOMI; Negative: Sclera icteric Neck Exam: Positive: Supple Chest Exam: Positive: Clear to auscultation; Negative: Wheezing Heart Exam: Positive: Tachycardic, Regular Rhythm Abdomen Exam: Positive: BS Hypoactive, Soft, Tenderness (Very tender to percussion) Extremity Exam: Negative: Edema Neuro Exam: Positive: Normal Speech, Strength at 5/5 X4 ext, Cranial Nerves 3- 12 NL Psych Exam: Positive: Mental status NL, Mood NL Vital Signs Vital Signs Date Time Temp Pulse Resp B/P (MAP) Pulse Ox O2 Delivery O2 Flow Rate FiO2 11/01/20 08:48 111 106/61 11/01/20 06:52 101.3 18 95 Room Air Laboratory Data Labs 24H Laboratory Tests 2 11/01/20 06:56: Neutrophils (%) (Auto) , Nucleated Red Blood Cells % (auto) 0.0, Neutrophils 72H, Band Neutrophils 6, Lymphocytes (Manual) 12L, Monocytes (Manual) 9H, Atypical Lymphocytes 1, Hypochromasia 1+, Platelet Estimate NORMAL, Anion Gap 5L, Glomerular Filtration Rate > 60.0, Calcium Level 10.3H, Magnesium Level 1.5 L, Total Bilirubin 0.5, Direct Bilirubin 0.2, Aspartate Amino Transf (AST/SGOT) 179H, Alanine Aminotransferase (ALT/SGPT) 200H, Alkaline Phosphatase 49, Ammonia 28, Total Creatine Kinase 89, Creatine Kinase MB < 1.0, Creatine Kinase MB Relative Index 1.12, Troponin I < 0.02, Total Protein 7.0, Albumin 4.0, Albumin/Globulin Ratio 1.3, Lipase 102, Ethyl Alcohol Level < 0.003 11/01/20 07:39: Prothrombin Time 12.7, Prothromb Time International Ratio 0.94, Activated Partial Thromboplast Time 23.3L, Blood Gas Bicarbonate Standard 26.0, Venous Blood pH 7.443H, Venous Blood Partial Pressure CO2 38.8, Venous Blood Partial Pressure O2 58.8H, Venous Blood Total Carbon Dioxide 27.1, Venous Blood HCO3 25.9, Venous Blood Oxygen Saturation 91.6H, Venous Blood Base Excess 1.8, Lactic Acid Level 2.3*H CBC/BMP Laboratory Tests 11/01/20 06:56 Microbiology Microbiology 11/01/20 Respiratory Virus Panel (PCR) ([facility]UC[facility]NA) - Final, Complete 11/01/20 Blood Culture, Received Pending 11/01/20 Blood Culture, Received Pending Assessment/Plan Mr. Saavedra is a 50 year old male history of alcoholic hepatitis and appendix perforation and abscess medically managed who presents with intense right lower quadrant abdominal pain. Symptoms are suggestive of appendicitis, but it is not seen on imaging. General surgery consulted, recommendations appreciated. Will keep patient NPO and start IVF. Today is day 1 of Zosyn. Otherwise, patient had history of binge drinking. Last alcoholic drink about 4 days ago. Will start thiamine, folic acid, multivitamin, and CIWA protocol with lorazepam. Will add a taper of Librium as well. Plan / VTE VTE Prophylaxis Ordered?: Yes Plan Plan 1. Peritonitis -RLQ pain, history of perforated appendicis -General surgery consulted, recommendations appreciated -NPO and IVF -Zosyn day 1 2. Alcoholic abuse -Drinks vodka -Last alcoholic drink 4 days prior to admission -Thiamine, folic acid, multivitamin -CIWA protocol -Librium taper 3. Possible alcoholic cirrhosis -Listed on last H&P -Maddry's score of 3.7, no need for steroids -Monitor liver enzymes 4. Hypomagnesemia -2/2 alcoholism -Monitor and replace 5. Anxiety/Depression -Hold Escitalopram as NPO 6. DVT ppx -SCD and TEDs Disposition: pending clinical improvement SHARMIN WATTS DO Nov 01, 2020 12:09
[2020-11-01 12:18] VITALS: BP 108/67
[2020-11-01 12:30] VITALS: BP 108/67
[2020-11-01] MEDS: chlordiazePOXIDE 25 MG CAP PO SCH ×2 (13:30→17:47)
[2020-11-01] MEDS: FOLIC ACID 1 MG TAB PO SCH (13:31)
[2020-11-01] MEDS: MULTIVITAMINS/MINERALS THERAP 1 TAB PO SCH (13:31)
[2020-11-01] MEDS: THIAMINE 100 MG TAB PO SCH ×2 (13:31→21:17)
[2020-11-01] MEDS: PANTOPRAZOLE 40MG VIAL (C9113 PER 1) IV SCH (13:31)
[2020-11-01] MEDS: KETOROLAC 30 MG/ML 1ML VIAL IV PRN (13:32)
[2020-11-01 15:39] LABS: HEPATITIS B SURFACE ANTIGEN NEGATIVE (NEGATIVE)
[2020-11-01 16:00] VITALS: BP 105/71
[2020-11-01 16:07] LABS: HEPATITIS B CORE ANTIBODY IGM NEGATIVE (NEGATIVE); HEPATITIS C VIRUS ABY INDEX 0.1 INDEX (<0.8)
[2020-11-01 16:08] LABS: HEPATITIS A ANTIBODY IGM NEGATIVE (NEGATIVE)
[2020-11-01] MEDS: PIPERACILLIN/TAZOBACTAM SOD 4.5 GM in D5W MINI-BAG PLUS 50 ML IV SCH ×2 (16:22→21:17)
[2020-11-01 20:00] VITALS: BP 112/71
[2020-11-01] MEDS: traZODone 50 MG TAB PO SCH (21:17)
[2020-11-02] VITALS (8 sets, daily range): BP systolic 84–125; BP diastolic 50–73
[2020-11-02] MEDS: chlordiazePOXIDE 25 MG CAP PO SCH ×3 (00:11→17:14)
[2020-11-02] MEDS: KETOROLAC 30 MG/ML 1ML VIAL IV PRN ×2 (00:15→19:53)
[2020-11-02] MEDS ORDERED: NS 1,000 ML IV ONE ×2 (01:35→04:20)
[2020-11-02] MEDS: PIPERACILLIN/TAZOBACTAM SOD 4.5 GM in D5W MINI-BAG PLUS 50 ML IV SCH ×4 (04:09→21:08)
[2020-11-02 06:07] LABS: HEMATOCRIT 32.2 % (42.0-52.0); HEMOGLOBIN 10.7 g/dl (13.5-17.5); MEAN CORPUSCULAR HEMOGLOBIN 31.8 pg (27.0-33.0); MEAN CORPUSCULAR HGB CONC 33.2 g/dl (32.0-36.5); MEAN CORPUSCULAR VOLUME 95.8 fl (80.0-96.0); PLATELET COUNT, AUTOMATED 267 10^3/uL (150-450); RED BLOOD COUNT 3.36 10^6/uL (4.30-6.10); WHITE BLOOD COUNT 5.2 10^3/uL (4.0-10.0)
[2020-11-02 06:35] LABS: ALT/SGPT 128 U/L (12-78); BLOOD UREA NITROGEN 12 MG/DL (7-18); CARBON DIOXIDE LEVEL 27 MEQ/L (21-32); CHLORIDE LEVEL 105 MEQ/L (98-107); CREATININE FOR GFR 0.77 MG/DL (0.70-1.30); GLOMERULAR FILTRATION RATE > 60.0 (>56); GLUCOSE, FASTING 77 MG/DL (70-100); MAGNESIUM LEVEL 1.8 MG/DL (1.8-2.4); POTASSIUM SERUM 3.5 MEQ/L (3.5-5.1); SODIUM LEVEL 139 MEQ/L (136-145); TOTAL PROTEIN 6.2 GM/DL (6.4-8.2)
[2020-11-02] MEDS ORDERED: MOM 30ML SUSPENSION UDC PO ONE (07:20)
[2020-11-02] MEDS ORDERED: BISACODYL 10 MG SUPP PR ONE (07:20)
[2020-11-02] MEDS: MULTIVITAMINS/MINERALS THERAP 1 TAB PO SCH (09:11)
[2020-11-02] MEDS: SENOKOT S TAB PO SCH ×2 (09:11→19:52)
[2020-11-02] MEDS: FOLIC ACID 1 MG TAB PO SCH (09:12)
[2020-11-02] MEDS: THIAMINE 100 MG TAB PO SCH ×2 (09:12→19:53)
[2020-11-02] MEDS: NS 1,000 ML IV SCH (10:23)
[2020-11-02] MEDS ORDERED: chlordiazePOXIDE 25 MG CAP PO SCH (12:27)
[2020-11-02] MEDS: PANTOPRAZOLE 40MG VIAL (C9113 PER 1) IV SCH (12:33)
--- NOTE | 2020-11-02 19:05 | IPNPDOC ---
Text Note Date of Service The patient was seen on 11/02/20. NOTE Subjective: Patient was seen and examined this morning at bedside. Tells me his abdominal pain has improved. He still wants to try diet. Patient was evaluated by Dr. Davidson in the morning who suggested patient can try a clear liquid diet. Patient tells me his had a large bowel movement last evening as well as another one this morning with some abdominal discomfort relief. Tells me his abdominal pain is mostly generalized at times is near the right side of the abdomen. He denies any fevers or chills denies nausea or vomiting denies chest pain or shortness of breath. Objective: Constitutional: Awake and alert, in no apparent distress ENT: Sclera are clear. Mucosa is moist. Respiratory: Lungs CTA bilaterally. No respiratory distress. Cardiovascular: RRR S1 and S2 are normal, no murmur Gastrointestinal: Abdomen is soft, non distended, diffusely tender to deep pal pation, BS present Musculoskeletal: No edema. Neurologic: No focal neurological deficit. Mental Status: A&O x3, normal affect Assessment/plan: 50-year-old male history of alcoholic hepatitis and appendix perforation last year was medically managed presents with right lower quadrant abdominal pain. Imaging not suggestive of appendicitis however general surgery was consulted Dr. Davidson. # Enteritis vs inflammatory bowel -RLQ pain, history of perforated appendix -General surgery consulted, recommendations appreciated -Dr. Davidson recommended advancing diet to clear liquid diet. - Cultures negative to date. -Zosyn started 11/01/20 # Alcoholic abuse: Last alcoholic drink 4 days prior to admission. Thiamine, folic acid, multivitamin. [facility] protocol. Librium taper # Possible alcoholic cirrhosis: Listed on last H&P. Maddry's score of 3.7, no need for steroids. Follow up with PCP. # Hypomagnesemia: 2/2 alcoholism Monitor and replace # Anxiety/Depression: Tinea Escitalopram # DVT ppx: Heparin A Yousef Hospitalist VSAlyse, I+O VSAlyse, I+O Laboratory Tests 11/02/20 05:43 Vital Signs Date Time Temp Pulse Resp B/P (MAP) Pulse Ox O2 Delivery O2 Flow Rate FiO2 11/02/20 16:00 99.3 94 18 102/58 (73) 97 Room Air I&O- Last 24 Hours up to 6 AM 11/02/20 06:00 Intake Total 4100 ml Output Total 825 ml Balance 3275 ml NAVYA BAINS MD Nov 02, 2020 19:05
[2020-11-02] MEDS: HEPARIN SOD (PORCINE) 5000UNITS/ML 1ML VIAL/SYRINGE SQ SCH (19:52)
[2020-11-02] MEDS: traZODone 50 MG TAB PO SCH (19:53)
[2020-11-03] VITALS: BP 107/67
[2020-11-03] MEDS: PIPERACILLIN/TAZOBACTAM SOD 4.5 GM in D5W MINI-BAG PLUS 50 ML IV SCH ×3 (03:45→16:47)
[2020-11-03] MEDS: KETOROLAC 30 MG/ML 1ML VIAL IV PRN (03:55)
[2020-11-03 04:00] VITALS: BP 118/69
[2020-11-03] MEDS: HEPARIN SOD (PORCINE) 5000UNITS/ML 1ML VIAL/SYRINGE SQ SCH ×2 (06:03→18:00)
[2020-11-03] MEDS: chlordiazePOXIDE 25 MG CAP PO SCH (06:03)
[2020-11-03 06:38] LABS: HEMATOCRIT 30.5 % (42.0-52.0); HEMOGLOBIN 10.2 g/dl (13.5-17.5); MEAN CORPUSCULAR HEMOGLOBIN 31.7 pg (27.0-33.0); MEAN CORPUSCULAR HGB CONC 33.4 g/dl (32.0-36.5); MEAN CORPUSCULAR VOLUME 94.7 fl (80.0-96.0); PLATELET COUNT, AUTOMATED 369 10^3/uL (150-450); RED BLOOD COUNT 3.22 10^6/uL (4.30-6.10); WHITE BLOOD COUNT 5.6 10^3/uL (4.0-10.0)
[2020-11-03 07:14] LABS: ALBUMIN 2.7 GM/DL (3.2-5.2); ALT/SGPT 87 U/L (12-78); BILIRUBIN,TOTAL 1.1 MG/DL (0.2-1.0); BLOOD UREA NITROGEN 11 MG/DL (7-18); CARBON DIOXIDE LEVEL 25 MEQ/L (21-32); CHLORIDE LEVEL 105 MEQ/L (98-107); CREATININE FOR GFR 0.68 MG/DL (0.70-1.30); GLOMERULAR FILTRATION RATE > 60.0 (>56); GLUCOSE, FASTING 99 MG/DL (70-100); POTASSIUM SERUM 2.7 MEQ/L (3.5-5.1); SODIUM LEVEL 137 MEQ/L (136-145); TOTAL PROTEIN 6.4 GM/DL (6.4-8.2)
[2020-11-03 07:38] VITALS: BP 119/78
[2020-11-03] MEDS ORDERED: POTASSIUM CHLORIDE 10 MEQ SR TABLET PO ONE (07:45)
[2020-11-03] MEDS: KCL 10MEQ/100ML SWI (KRUN) 10 MEQ in IV 1 EA IV SCH ×4 (07:58→11:00)
[2020-11-03] MEDS ORDERED: ESCITALOPRAM OXALATE 10 MG TAB (LEXAPRO) PO SCH (09:00)
[2020-11-03] MEDS: SENOKOT S TAB PO SCH ×2 (09:00→09:02)
[2020-11-03] MEDS: FOLIC ACID 1 MG TAB PO SCH (09:02)
[2020-11-03] MEDS: THIAMINE 100 MG TAB PO SCH (09:02)
[2020-11-03] MEDS: MULTIVITAMINS/MINERALS THERAP 1 TAB PO SCH (09:02)
[2020-11-03 12:00] VITALS: BP 135/87
[2020-11-03 13:50] LABS: BLOOD UREA NITROGEN 12 MG/DL (7-18); CALCIUM LEVEL 9.4 MG/DL (8.5-10.1); CARBON DIOXIDE LEVEL 25 MEQ/L (21-32); CHLORIDE LEVEL 105 MEQ/L (98-107); CREATININE FOR GFR 0.71 MG/DL (0.70-1.30); GLOMERULAR FILTRATION RATE > 60.0 (>56); GLUCOSE, FASTING 88 MG/DL (70-100); POTASSIUM SERUM 3.9 MEQ/L (3.5-5.1); SODIUM LEVEL 137 MEQ/L (136-145)
[2020-11-03] MEDS: PANTOPRAZOLE 40MG VIAL (C9113 PER 1) IV SCH (14:24)
[2020-11-03] MEDS ORDERED: VITMTA PO (14:32)
[2020-11-03] MEDS ORDERED: AUGM875T28 PO (14:32)
[2020-11-03] MEDS ORDERED: FOLI1TAB11 PO (14:32)
[2020-11-03] MEDS ORDERED: THIA100TA PO (14:32)
--- NOTE | 2020-11-03 14:43 | DS.PDOC ---
Discharge Summary General Date of Admission Nov 01, 2020 at 11:02 Date of Discharge 11/03/20 Discharge Summary PROCEDURES PERFORMED DURING STAY: [None]. ADMITTING/DISCHARGE DIAGNOSES: Bowel inflammation, exact etiology not yet diagnosed. COMPLICATIONS/CHIEF COMPLAINT: Abdominal pain HISTORY OF PRESENT ILLNESS: From admitting physicians H&P: 50 year old male history of alcoholic hepatitis and appendix perforation and abscess medically managed who presents with intense right lower quadrant abdominal pain. He was last here in May 2020 for alcohol intoxication and fever and was found to have perforation of appendix with abscess. He did not have abdominal pain or tenderness at that time. It was medically managed. He was doing okay, but at 6PM he had intense abdominal pain, rated 8/10. It was a constant dull pain located in the RLQ, that has been worse with breathing or moving. He has not tried eating. Last BM was this morning. Pain was persistent, and he was worried about his appendix and came to the ED. While in the ED, he had a fever of 101.3 and HR of 111. No leukocytosis. CT abd/pelvis demonstrated inflammatory changes in the right lower quadrant, but does not suggest acute appendicitis. On examination, patient had severe tenderness to percussion. Otherwise he had mild tremors, denies anxiety. He last drank alcohol last 4 days ago. HOSPITAL COURSE: 50-year-old male history of alcoholic hepatitis and appendix perforation last year was medically managed presents with right lower quadrant abdominal pain. Imaging is suggestive of inflammatory bowel disease versus enteritis. general surgery was consulted Dr. Davidson who saw the patient. Patient was treated with IV Zosyn for 3 days he showed progressive improvement in his abdominal pain he was able to be advanced from a clear liquid diet to regular diet which he tolerated well. On day of discharge physical exam reveals no abdominal pain. I discussed the case with Dr. Davidson to have an exact etiology however he did have some diarrhea on day of discharge he could've had a viral enteritis or telemetry bowel disease that's not yet diagnosed. I referred the patient to see facilities management executive after discharge he may need a colonoscopy and biopsy. Physical therapy evaluated patient and cleared him for discharge with home health DISCHARGE MEDICATIONS: Please see below. ALLERGIES: Please see below. PHYSICAL EXAMINATION ON DISCHARGE: On the discharge patient was advanced to a regular diet he was able to tolerate it well he denies significant abdominal pain and this time he says he just has mild discomfort. He denies any fevers or chills denies any chest pain or shortness of breath. VITAL SIGNS: Please see below. Constitutional: Awake and alert, in no apparent distress ENT: Sclera are clear. Mucosa is moist. Respiratory: Lungs CTA bilaterally. No respiratory distress. Cardiovascular: RRR S1 and S2 are normal, no murmur Gastrointestinal: Abdomen is soft, non distended, none tender to palpation today, BS present Musculoskeletal: No edema. Neurologic: No focal neurological deficit. Mental Status: A&O x3, normal affect LABORATORY DATA: Please see below. IMAGING: see chart PROGNOSIS: fair ACTIVITY: [As tolerated]. DIET: Regular diet DISPOSITION: Home with home health DISCHARGE INSTRUCTIONS: Please follow up with your primary care physician within 1 week from discharge. If you do not have one, please follow up with us to schedule an appointment. Please keep all of your follow up appointments. Please call central to book your appointments with hospital specialists. Please take all your medications as prescribed. Please call/come to Clinic or go to the Emergency Department if - Temp >101, intractable Nausea/Vomiting, Diarrhea, Mouth sores, Headaches, Altered mental status, Seizures, sudden onset of swelling, bleeding, shortness of breath or chest pain. ITEMS TO FOLLOWUP ON ON OUTPATIENT: Follow up with your primary care physician within 5 days of discharge Follow-up with gastroenterology referral DISCHARGE CONDITION: [Stable]. TIME SPENT ON DISCHARGE: 40 minutes. Vital Signs/I&Os Vital Signs Date Time Temp Pulse Resp B/P (MAP) Pulse Ox O2 Delivery O2 Flow Rate FiO2 11/03/20 12:00 98.0 83 18 135/87 (103) 97 Room Air I&O- Last 24 Hours up to 6 AM 11/03/20 06:00 Intake Total 2140 ml Output Total 2100 ml Balance 40 ml Laboratory Data Labs 24H Laboratory Tests 2 11/03/20 06:16: Nucleated Red Blood Cells % (auto) 0.0, Anion Gap 7L, Glomerular Filtration Rate > 60.0, Calcium Level 9.0, Total Bilirubin 1.1H, Aspartate Amino Transf (AST/SGOT) 26, Alanine Aminotransferase (ALT/SGPT) 87H, Alkaline Phosphatase 49, Total Protein 6.4, Albumin 2.7L, Albumin/Globulin Ratio 0.7 11/03/20 12:57: Anion Gap 7L, Glomerular Filtration Rate > 60.0, Calcium Level 9.4 CBC/BMP Laboratory Tests 11/03/20 06:16 11/03/20 12:57 Microbiology Microbiology 11/01/20 Respiratory Virus Panel (PCR) ([facility]) - Final, Complete 11/01/20 Blood Culture - Preliminary, Resulted No Growth after 48 hours. All Specime... 11/01/20 Blood Culture - Preliminary, Resulted No Growth after 48 hours. All Specime... Discharge Medications Scheduled Amoxicillin/Potassium Clav (Augmentin 875-125 Tablet) 1 Each Tablet, 1 TAB PO BID Escitalopram Oxalate (Lexapro) 20 Mg Tablet, 20 MG PO DAILY, (Reported) Folic Acid (Folic Acid) 1 Mg Tablet, 1 MG PO DAILY Multivit,Calc,Mins/Iron/Folic (Thera-M Tablet) 1 Each Tablet, 1 TAB PO DAILY, (Reported) Multivitamins (Thera M Plus Tablet) 1 Each Tablet, 1 TAB PO DAILY Thiamine Hcl (Vitamin B-1) 100 Mg Tablet, 100 MG PO BID Vitamin B Complex (Vitamin B Complex) 1 Each Tablet, 1 TAB PO DAILY, (Reported) Allergies Coded Allergies: No Known Allergies (Unverified , 11/20/19) NAVYA BAINS MD Nov 03, 2020 14:43
[2020-11-03 16:00] VITALS: BP 133/77
[2020-11-04] MEDS ORDERED: chlordiazePOXIDE 25 MG CAP PO ONE (06:00)
== END 2020-11-03 19:55 | disposition home health service (06) | DRG 249 ==
LOC: M ED 06:44 → M PCU 11:02 → ENRESERV 11:18
PROVIDERS: ADMIT Internal Medicine; ATTEND Family Medicine
DX: A08.4 Viral intestinal infection, unspecified (principal); E83.42 Hypomagnesemia; F10.20 Alcohol dependence, uncomplicated; Z79.899 Other long term (current) drug therapy; K70.30 Alcoholic cirrhosis of liver without ascites; F41.9 Anxiety disorder, unspecified; F32.9 Major depressive disorder, single episode, unspecified

== ENCOUNTER → 2021-11-14 | Outpatient (REF) ==
[~2021-11-14] MED LIST changes: +AUGM875T28 PO; +THERTAB21 PO; +VITATAB73 PO
== END ==
LOC: M LAB 08:43